=== PATIENT | male | born 1955 | race Hispanic/Latino ===

== ENCOUNTER 2021-11-16 18:03 | Emergency (ER) | payer MEDICARE ==
[2021-11-16 20:17] LABS: Basophils # (Auto) 0.1 K/mm3 (0.0-0.1); Basophils % (Auto) 0.5 % (0.0-1.8); Eosinophils # (Auto) 0.4 K/mm3 (0.0-0.4); Eosinophils % (Auto) 3.4 % (0.0-4.3); Hemoglobin 13.8 gm/dl (11.8-15.2); Lymphocytes # (Auto) 3.3 K/mm3 (1.2-5.4); Lymphocytes % (Auto) 30.8 % (13.4-35.0); Mean Corpuscular HGB Conc 34 % (32-34); Mean Corpuscular Volume 98 fl (84-94); Monocytes # (Auto) 0.9 K/mm3 (0.0-0.8); Monocytes % (Auto) 8.9 % (0.0-7.3); Platelet Count 212 K/mm3 (140-440); Red Cell Distribution Width 14.7 % (13.2-15.2)
[2021-11-16 20:28] LABS: BUN/Creatinine Ratio 18; Blood Urea Nitrogen 14 mg/dL (9-20); Calcium 9.1 mg/dL (8.4-10.2); Hemolysis Index 11
[2021-11-16] MEDS ORDERED: MIDAZOLAM 2 MG/2 ML INJ IM PRN (21:47)
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
[2021-11-17 10:21] LABS: Mucus,Urine FEW /HPF; WBC,Urine < 1.0 /HPF (0.0-6.0)
[2021-11-17 10:22] LABS: Color,Urine Straw (Yellow)
--- NOTE | 2021-11-17 10:50 | Consultation ---
History of Present Illness - Reason for Consult Consult date: 11/17/21 Reason for consult: agitation - History of Present Psychiatric Illness HPI: aggressive behavior reported at care facility. 12-17 signed on pt. given versed and haldol im by ems. 4 point restraints per ems. The patient was seen today. He is easily irritable. He smells of urine, and there is urine on the floor. The patient is a/o x 2. He has poor insight. The patient says he was brought here for a stroke. He then says "I don't know why I came here. But I'm ready to go." He says "I need a joint. Aint nothing wrong with me." He says "whatever they bought me for they need to take me back." The patient denies any psych history or being on any psych meds. He denies SI/HI or hallucinations of any kind. Will treat and recommend inpatient psych treatment based on documented behav iors. REVIEW OF SYSTEMS Constitutional: Negative for weight loss ENT: Negative for stridor Respiratory: Negative for cough or hemoptysis All other systems reviewed and are negative MENTAL STATUS EXAMINATION General Appearance and Behavior: Age appropriate, wearing appropriate clothes, cooperative, irritable Cooperation: cooperative Psychomotor Behavior: Psychomotor normal Mood: fine Affect and affective range: congruent with stated affect Thought Process: Impaired Thought Content: None Speech: Normal volume, Regular rate and rhythm Suicidal Ideation: Denies Homicidal Ideation: Denies Hallucination: Denies Delusions: Denies Impulse Control: Impaired Insight and Judgment: Limited Memory: Poor Attention: distracted Orientation: a/o x 2 Diagnoses: Mood Disorder, Unspecified Treatment Plan [address] 125mg po BID Trazodone 50mg po qhs Medical: per primary Sitter: defer to primary Disposition: Recommend acute psychiatric inpatient treatment Will follow. Thanks Case staffed with Dr. Duarte Medications and Allergies Allergies Allergy/AdvReac Type Severity Reaction Status Date / Time gadoteridol [From Prohance] Allergy Unknown Verified 11/16/21 18:43 Active Meds: Active Medications Haloperidol Lactate (Haloperidol Lactate 5 Mg/1 Ml Inj) 5 mg IM Q6HR PRN PRN Reason: Agitation Midazolam HCl (Midazolam 2 Mg/2 Ml Inj) 2 mg IM Q6HR PRN PRN Reason: Agitation Mental Status Exam - Vital signs Last Vital Signs Temp 97.4 F L 11/17/21 07:57 Pulse 69 11/17/21 07:57 Resp 16 11/17/21 07:57 BP 143/92 11/17/21 07:57 Pulse Ox 97 11/17/21 07:57 Results Result Diagrams: 11/16/21 19:41 11/16/21 19:41 Abnormal lab results 11/16/21 11/16/21 11/16/21 Range/Units 19:41 19:41 19:41 MCV 98 H (84-94) fl MCH 33 H (28-32) pg [place] % (Auto) 8.9 H (0.0-7.3) % [place] # (Auto) 0.9 H (0.0-0.8) K/mm3 Salicylates < 0.3 L (2.8-20.0) mg/dL Acetaminophen 5.0 L (10.0-30.0) ug/mL All other labs normal.
[2021-11-17 12:08] LABS: Amphetamine Screen,Urine PRESUMPTIVE NEGATIVE; Benzodiazepines Screen,Urine PRESUMPTIVE POSITIVE; Cannabinoid Screen,Urine PRESUMPTIVE NEGATIVE; Cocaine Screen,Urine PRESUMPTIVE NEGATIVE; Methadone Screen,Urine PRESUMPTIVE NEGATIVE; Opiate Screen,Urine PRESUMPTIVE NEGATIVE
[2021-11-17] MEDS: DIVALPROEX DR 125 MG TAB PO SCH ×2 (14:17→22:01)
[2021-11-17] MEDS: traZODone 50 MG TAB PO SCH (22:01)
[2021-11-18] MEDS: DIVALPROEX DR 125 MG TAB PO SCH (10:27)
--- NOTE | 2021-11-18 12:53 | Event Note ---
Date: 11/18/21 S: No events reported overnight O: Vital Signs - 8 hr 11/18/21 10:00 Temperature 98.0 F Pulse Rate 100 H Respiratory 14 Rate Blood Pressure 146/94 [Right] O2 Sat by Pulse 100 Oximetry A: Mood disorder P: 1013/awaiting inpatient psych
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
[2021-11-18] MEDS: HALOPERIDOL LACTATE 5 MG/1 ML INJ IM PRN ×2 (15:23→21:42)
[2021-11-18] MEDS: traZODone 50 MG TAB PO SCH (21:42)
[2021-11-18 21:46] VITALS: BP 126/77
[2021-11-18] MEDS ORDERED: DIVALPROEX DR 250 MG TAB PO SCH (22:00)
== END 2021-11-18 21:46 ==
LOC: ED 18:03
DX: Z04.6 Encounter for general psychiatric examination, requested by authority (principal); F03.90 Unspecified dementia, unspecified severity, without behavioral disturbance, psychotic disturbance, mood disturbance, and anxiety; Z20.822 Contact with and (suspected) exposure to COVID-19; Z88.8 Allergy status to other drugs, medicaments and biological substances; Z79.899 Other long term (current) drug therapy
CPT/HCPCS: 36415; 80048; 80307; 81001; 85025; 96372; 99285; J1630; U0003; 80320; G0480

== ENCOUNTER 2021-11-18 18:39 | Inpatient (IN) | payer MEDICARE ==
--- NOTE | 2021-11-19 09:49 | Consultation ---
Medications and Allergies Allergies Allergy/AdvReac Type Severity Reaction Status Date / Time gadoteridol [From Prohance] Allergy Unknown Verified 11/16/21 18:43 Home Medications Medication Instructions Recorded Confirmed Last Taken Type ALPRAZolam [Xanax TAB] 0.5 mg PO BID 11/19/21 11/19/21 Unknown History Atorvastatin [Lipitor Tab] 80 mg PO QDAY 11/19/21 11/19/21 Unknown History Sertraline [Zoloft] 25 mg PO QDAY 11/19/21 11/19/21 Unknown History Exam - Constitutional Vitals: Temp Pulse Resp BP Pulse Ox 97.5 F L 91 H 18 108/65 95 11/19/21 06:31 11/18/21 22:18 11/19/21 06:31 11/19/21 06:31 11/18/21 22:18
--- NOTE | 2021-11-19 11:32 | History and Physical Report ---
GP History & Physical - History of Present Illness Date of admission: 11/18/21 Date of Examination: 11/19/21 Reason for Admission: Danger to self, Failure of Outpatient Treatment, Severe anxiety/depression History of Present Illness: HPI: aggressive behavior reported at care facility. 12-17 signed on pt. given versed and haldol im by ems. 4 point restraints per ems. The patient was seen today. He was first seen in the ER where he presented for severe agitation. During my evaluation today, the patient is calm and cooperative, but easily irritable. I ask him if he felt calm, he said "yea for now, long as nobody messing with me." The patient denies hallucinations or SI/HI. PAST PSYCHIATRIC HISTORY: Diagnoses: Denies Suicide attempts or Self-harm behavior: Denies Prior psychiatric hospitalizations: Denies Substance Abuse history: Denies Previous psychiatric medications tried: Denies Outpatient treatment: Denies PAST MEDICAL HISTORY: None reported Family Psychiatric History: None reported or documented SOCIAL HISTORY Marital Status: Single Living Arrangements: lives with significant other Employment Status: Disabled Access to guns/weapons: Denies Education: History of Abuse:Denies Legal History: Denies REVIEW OF SYSTEMS Constitutional: Negative for weight loss ENT: Negative for stridor Respiratory: Negative for cough or hemoptysis All other systems reviewed and are negative MENTAL STATUS EXAMINATION General Appearance and Behavior: Age appropriate, wearing appropriate clothes, cooperative, irritable Cooperation: cooperative Psychomotor Behavior: Psychomotor normal Mood: fine Affect and affective range: congruent with stated affect Thought Process: Impaired Thought Content: None Speech: Normal volume, Regular rate and rhythm Suicidal Ideation: Denies Homicidal Ideation: Denies Hallucination: Denies Delusions: Denies Impulse Control: Impaired Insight and Judgment: Limited Memory: Poor Attention: distracted Orientation: a/o x 2 Diagnoses: Mood Disorder, Unspecified Treatment Plan Patient admitted for inpatient psychiatric evaluation, medication adjustment and close monitoring The patient's behavior, mood, sleep and appetite will be closely monitored. Patient enrolled in individual and group therapeutic sessions and encouraged to attend. Patient provided with a safe and structured environment. Patient's physical health needs will be addressed by the Hospitalist. Hospitalist Consulted Labs including CBC, CMP, Lipid profile and Hemoglobin A1C levels ordered for baseline reference Social Assessment will be completed and the Bead Forming Machine Set Up Operator will work with patient and family to ensure a suitable and safe disposition Medication adjustment will be made as clinically indicated Continue medications Usual Wellness Amish/Preservation: - Start Trazodone 50 mg po QHS & 50 mg po QHS PRN between 10 PM & 2 AM for insomnia - Start Melatonin 5 mg po QHS to promote circadian rhythm The patient agreed on the treatment plan, understood the risk, benefit, altern ative treatment, potential consequence of no treatment, and gave informed consent. Estimated days: 7 Post hospital care: primary care provider, psychiatric provider Case staffed with Dr. Duarte Legal Status: Voluntary Reaction to Hospitalization: Accepting Medications and Allergies Allergies Allergy/AdvReac Type Severity Reaction Status Date / Time gadoteridol [From Prohance] Allergy Unknown Verified 11/16/21 18:43 Home Medications Medication Instructions Recorded Confirmed Last Taken Type ALPRAZolam [Xanax TAB] 0.5 mg PO BID 11/19/21 11/19/21 Unknown History Atorvastatin [Lipitor Tab] 80 mg PO QDAY 11/19/21 11/19/21 Unknown History Sertraline [Zoloft] 25 mg PO QDAY 11/19/21 11/19/21 Unknown History Results - Results Labs/Vitals: Last Vital Signs Temp 97.5 F L 11/19/21 06:31 Pulse 91 H 11/18/21 22:18 Resp 18 11/19/21 06:31 BP 108/65 11/19/21 06:31 Pulse Ox 95 11/18/21 22:18 Physical Examination - Constitutional Vitals: Vital Signs Temp Pulse Resp BP Pulse Ox 97.5 F L 91 H 18 108/65 95 11/19/21 06:31 11/18/21 22:18 11/19/21 06:31 11/19/21 06:31 11/18/21 22:18 Temperature -Last 24 Hours Temperature 97.5 F Temperature 97.6 F Mental Status Exam - Vital signs Last Vital Signs Temp 97.5 F L 11/19/21 06:31 Pulse 91 H 11/18/21 22:18 Resp 18 11/19/21 06:31 BP 108/65 11/19/21 06:31 Pulse Ox 95 11/18/21 22:18 Physician Certification - Certification Statement Physician Certification Statement: This is an acknowledgement statement that PRAKASH SKY is a 66 year old M who requires inpatient psychiatric admission for treatment which could re asonably be expected to improve the patient's condition for Estimated period of time patient will need to remain in the hospital: [ ] Plan for post-hospital care: [ ]
[2021-11-19] MEDS ORDERED: NON-FORMULARY EACH (Atorvastatin [Lipitor] 80 MG Tablet) PO SCH (11:45)
[2021-11-19] MEDS: SERTRALINE 25 MG TAB PO SCH (11:59)
[2021-11-19] MEDS: ALPRAZolam 0.5 MG TAB PO SCH ×2 (11:59→21:09)
--- NOTE | 2021-11-19 20:57 | Consultation ---
History of Present Illness - Reason for Consult Consult date: 11/19/21 Medical management Requesting physician: TAYLOR DAILEY - History of Present Illness 66 YO Male with Vascular Dementia with Behavioral Disturbance, Cerebral Atherosclerosis, HTN, HLD, DESTIN, MDD admitted to [facility] for psychiatric stabilization. Consult placed by Dr. Dailey for medical management. Patient seen and evaluated in the recreation room. Patient denies fever, chills, chest pain, palpitation, productive cough, skin rash, recent contact, known exposure to COVID-19. No reported nursing events. Patient appears to be at baseline level of cognition and function. Past History Past Medical History: hypertension, hyperlipidemia, other (See HPI) Past Surgical History: No surgical history, Other (Reviewed) Social history: single. denies: smoking, alcohol abuse Family history: hypertension Medications and Allergies Allergies Allergy/AdvReac Type Severity Reaction Status Date / Time gadoteridol [From Prohance] Allergy Unknown Verified 11/16/21 18:43 Home Medications Medication Instructions Recorded Confirmed Last Taken Type ALPRAZolam [Xanax TAB] 0.5 mg PO BID 11/19/21 11/19/21 Unknown History Atorvastatin [Lipitor Tab] 80 mg PO QDAY 11/19/21 11/19/21 Unknown History Sertraline [Zoloft] 25 mg PO QDAY 11/19/21 11/19/21 Unknown History Active Meds: Active Medications Alprazolam (Alprazolam 0.5 Mg Tab) 0.5 mg PO BID [facility] Last Admin: 11/19/21 11:59 Dose: 0.5 mg Atorvastatin Calcium (Atorvastatin 40 Mg Tab) 80 mg PO QHS [facility] Sertraline HCl (Sertraline 25 Mg Tab) 25 mg PO QDAY [facility] Last Admin: 11/19/21 11:59 Dose: 25 mg Review of Systems Constitutional: no weight loss, no weight gain, no fever Ears, nose, mouth and throat: no ear pain, no tinnitis Cardiovascular: no chest pain, no orthopnea, no rapid/irregular heart beat Respiratory: no cough, no cough with sputum, no excessive sputum Gastrointestinal: no abdominal pain, no nausea, no vomiting, no diarrhea, no constipation Genitourinary Male: no hematuria, no flank pain, no discharge, no urinary fr equency Rectal: no pain, no incontinence, no bleeding Musculoskeletal: no neck stiffness, no neck pain, no shooting arm pain, no arm numbness/tingling, no low back pain, no leg numbness/tingling Integumentary: no rash, no redness, no sores, no wounds, no jaundice Neurological: no head injury, no weakness, no parathesias, no numbness, no seizures, no syncope, no tremors Psychiatric: anxiety, depression, mood swings Endocrine: no cold intolerance, no polyphagia, no excessive thirst, no polydipsia, no polyuria, no nocturia Hematologic/Lymphatic: no easy bruising, no easy bleeding Allergic/Immunologic: no urticaria Exam - Constitutional Vitals: Temp Pulse Resp BP Pulse Ox 97.8 F 75 18 126/78 98 11/19/21 18:36 11/19/21 18:36 11/19/21 18:36 11/19/21 18:36 11/19/21 18:36 General appearance: Present: no acute distress - EENT Eyes: Present: PERRL ENT: hearing intact, clear oral mucosa, hearing decreased - Neck Neck: Present: supple, normal ROM - Respiratory Respiratory effort: normal Respiratory: bilateral: CTA - Cardiovascular Heart Sounds: Present: S1 & S2. Absent: rub, click - Extremities Extremities: pulses symmetrical, No edema Peripheral Pulses: within normal limits - Abdominal General gastrointestinal: Present: soft, non-tender, non-distended, normal bowel sounds Male genitourinary: Present: normal - Integumentary Integumentary: Present: clear, warm, dry - Musculoskeletal Musculoskeletal: gait normal, strength equal bilaterally - Psychiatric Psychiatric: cooperative - Neurologic Neurologic: CNII-XII intact, moves all extremities Assessment and Plan - Patient Problems (1) Vascular dementia with behavioral disturbance Current Visit: Yes Status: Acute Plan to address problem: Verbal prompting, verbal redirection, benzodiazepine therapy as clinically indicated. (2) Cerebral atherosclerosis Current Visit: Yes Status: Acute Plan to address problem: Antiplatelet therapy as clinically indicated, risk factor reduction. (3) Hypertension Current Visit: Yes Status: Acute Qualifiers: Hypertension type: primary hypertension Qualified Code(s): I10 - Essential (primary) hypertension Plan to address problem: Monitor blood pressure every shift, continue medical management. (4) Hyperlipidemia Current Visit: Yes Status: Acute Plan to address problem: Statin therapy, low-cholesterol diet (5) Generalized anxiety disorder Current Visit: Yes Status: Acute Plan to address problem: Benzodiazepine therapy as clinically indicated. (6) Major depression Current Visit: Yes Status: Acute Plan to address problem: Continue medical management, cognitive behavioral therapy. (7) Advance care planning Current Visit: Yes Status: Acute Plan to address problem: Disease education done, care plan discussed, diagnoses discussed, prognosis discussed, patient is full code. Patient acknowledges understanding and agre ement with care plan, +30 minutes. (8) Preventative health care Current Visit: Yes Status: Acute Plan to address problem: Patient counseled regarding outpatient follow-up with primary care physician for all age and risk factor appropriate screening test. +30 minutes.
[2021-11-19 23:58] LABS: Hematocrit 35.9 % (35.5-45.6); Hemoglobin 12.4 gm/dl (11.8-15.2); Mean Corpuscular HGB Conc 35 % (32-34); Mean Corpuscular Volume 97 fl (84-94); Platelet Count 190 K/mm3 (140-440); Red Blood Count 3.69 M/mm3 (3.65-5.03); Red Cell Distribution Width 14.7 % (13.2-15.2)
[2021-11-20 01:47] LABS: Basophils % (Manual) 0 % (0.0-1.8); Total Cells Counted 100
[2021-11-20 01:48] LABS: Anisocytosis 1+; Ovalocytes Few; Platelet Estimate Consistent w Auto; Target Cells Few
[2021-11-20 02:28] LABS: Alanine Aminotransferase 46 units/L (7-56); Albumin 3.6 g/dL (3.9-5); BUN/Creatinine Ratio 21; Blood Urea Nitrogen 19 mg/dL (9-20); Calcium 9.2 mg/dL (8.4-10.2); Chol/HDL Ratio 1.91 %; HDL Cholesterol 48 mg/dL (40-59); Hemolysis Index 3; LDL Cholesterol,Direct 42 mg/dL (50-130)
[2021-11-20] MEDS: SERTRALINE 25 MG TAB PO SCH (12:14)
[2021-11-20] MEDS: ALPRAZolam 0.5 MG TAB PO SCH ×2 (16:14→21:18)
[2021-11-21] MEDS: ALPRAZolam 0.5 MG TAB PO SCH ×2 (09:07→21:06)
[2021-11-21] MEDS: SERTRALINE 25 MG TAB PO SCH (09:07)
--- NOTE | 2021-11-21 22:09 | Progress Note ---
Subjective Date of service: 11/20/21 Principal diagnosis: vascular dementia w/ behavioral disturbance, mood disorder unspecified Subjective Comment: 11/20: Patient was seen today. Patient was alert and oriented x3 and cooperative throughout the interview. Patient reports he feels "alright." Patient denies irritability or other depressive sx. Patient denies anxiety. Patient denies suicidal ideation, homicidal ideation, and hallucinations. Patient reports he slept okay and has good appetite. Patient denies any complaints. 11/19: The patient was seen today. He was first seen in the ER where he presented for severe agitation. During my evaluation today, the patient is calm and cooperative, but easily irritable. I ask him if he felt calm, he said "yea for now, long as nobody messing with me." The patient denies hallucinations or SI/HI. PAST PSYCHIATRIC HISTORY: Diagnoses: Denies Suicide attempts or Self-harm behavior: Denies Prior psychiatric hospitalizations: Denies Substance Abuse history: Denies Previous psychiatric medications tried: Denies Outpatient treatment: Denies PAST MEDICAL HISTORY: None reported Family Psychiatric History: None reported or documented SOCIAL HISTORY Marital Status: Single Living Arrangements: lives with significant other Employment Status: Disabled Access to guns/weapons: Denies Education: History of Abuse:Denies Legal History: Denies REVIEW OF SYSTEMS Constitutional: Negative for weight loss ENT: Negative for stridor Respiratory: Negative for cough or hemoptysis All other systems reviewed and are negative MENTAL STATUS EXAMINATION General Appearance and Behavior: Age appropriate, wearing appropriate clothes, cooperative, irritable Cooperation: cooperative Psychomotor Behavior: Psychomotor normal Mood: "alright" Affect and affective range: congruent with stated affect Thought Process: Goal oriented Thought Content: Reality based Speech: Normal volume, Regular rate and rhythm Suicidal Ideation: Denies Homicidal Ideation: Denies Hallucination: Denies Delusions: Denies Impulse Control: Normal Insight and Judgment: Limited Memory: Poor Attention: Distracted Orientation: a/o x 3 Diagnoses: Vascular dementia with behavioral disturbance Mood Disorder, Unspecified Treatment Plan Patient admitted for inpatient psychiatric evaluation, medication adjustment and close monitoring The patient's behavior, mood, sleep and appetite will be closely monitored. Patient enrolled in individual and group therapeutic sessions and encouraged to attend. Patient provided with a safe and structured environment. Patient's physical health needs will be addressed by the Hospitalist. Hospitalist Consulted Labs including CBC, CMP, Lipid profile and Hemoglobin A1C levels ordered for baseline reference Social Assessment will be completed and the Color Control Supervisor will work with patient and family to ensure a suitable and safe disposition Medication adjustment will be made as clinically indicated - Continue meds: - Zoloft 25 mg qd - Xanax .5 mg BID Usual Wellness [facility]/Preservation - Start Trazodone 50 mg po QHS & 50 mg po QHS PRN between 10 PM & 2 AM for insomnia - Start Melatonin 5 mg po QHS to promote circadian rhythm The patient agreed on the treatment plan, understood the risk, benefit, alternative treatment, potential consequence of no treatment, and gave informed consent. Estimated days: 7 Post hospital care: primary care provider, psychiatric provider Case staffed with Dr. Duarte Medications and Allergies Allergies Allergy/AdvReac Type Severity Reaction Status Date / Time gadoteridol [From Prohance] Allergy Unknown Verified 11/16/21 18:43 Home Medications Medication Instructions Recorded Confirmed Last Taken Type ALPRAZolam [Xanax TAB] 0.5 mg PO BID 11/19/21 11/19/21 Unknown History Atorvastatin [Lipitor Tab] 80 mg PO QDAY 11/19/21 11/19/21 Unknown History Sertraline [Zoloft] 25 mg PO QDAY 11/19/21 11/19/21 Unknown History Active Meds: Active Medications Alprazolam (Alprazolam 0.5 Mg Tab) 0.5 mg PO BID [facility] Last Admin: 11/21/21 21:06 Dose: 0.5 mg Atorvastatin Calcium (Atorvastatin 40 Mg Tab) 80 mg PO QHS [facility] Last Admin: 11/21/21 21:06 Dose: 80 mg Sertraline HCl (Sertraline 25 Mg Tab) 25 mg PO QDAY [facility] Last Admin: 11/21/21 09:07 Dose: 25 mg Results - Results Labs/Vitals: Laboratory Last Values WBC 9.8 K/mm3 (4.5-11.0) 11/19/21 23:14 RBC 3.69 M/mm3 (3.65-5.03) 11/19/21 23:14 Hgb 12.4 gm/dl (11.8-15.2) 11/19/21 23:14 Hct 35.9 % (35.5-45.6) 11/19/21 23:14 MCV 97 fl (84-94) H 11/19/21 23:14 MCH 34 pg (28-32) H 11/19/21 23:14 MCHC 35 % (32-34) H 11/19/21 23:14 RDW 14.7 % (13.2-15.2) 11/19/21 23:14 Plt Count 190 K/mm3 (140-440) 11/19/21 23:14 Baso % (Auto) Fancy Stitcher 11/19/21 23:14 Add Manual Diff Complete 11/19/21 23:14 Total Counted 100 11/19/21 23:14 Seg Neuts % (Manual) 50.0 % (40.0-70.0) 11/19/21 23:14 Band Neutrophils % 0 % 11/19/21 23:14 Lymphocytes % (Manual) 34.0 % (13.4-35.0) 11/19/21 23:14 Reactive Lymphs % (Man) 0 % 11/19/21 23:14 Monocytes % (Manual) 12.0 % (0.0-7.3) H 11/19/21 23:14 Eosinophils % (Manual) 4.0 % (0.0-4.3) 11/19/21 23:14 Basophils % (Manual) 0 % (0.0-1.8) 11/19/21 23:14 Metamyelocytes % 0 % 11/19/21 23:14 Myelocytes % 0 % 11/19/21 23:14 Promyelocytes % 0 % 11/19/21 23:14 Blast Cells % 0 % 11/19/21 23:14 Nucleated RBC % Not Reportable 11/19/21 23:14 Seg Neutrophils # Man 4.9 K/mm3 (1.8-7.7) 11/19/21 23:14 Band Neutrophils # 0.0 K/mm3 11/19/21 23:14 Lymphocytes # (Manual) 3.3 K/mm3 (1.2-5.4) 11/19/21 23:14 Abs React Lymphs (Man) 0.0 K/mm3 11/19/21 23:14 Monocytes # (Manual) 1.2 K/mm3 (0.0-0.8) H 11/19/21 23:14 Eosinophils # (Manual) 0.4 K/mm3 (0.0-0.4) 11/19/21 23:14 Basophils # (Manual) 0.0 K/mm3 (0.0-0.1) 11/19/21 23:14 Metamyelocytes # 0.0 K/mm3 11/19/21 23:14 Myelocytes # 0.0 K/mm3 11/19/21 23:14 Promyelocytes # 0.0 K/mm3 11/19/21 23:14 Blast Cells # 0.0 K/mm3 11/19/21 23:14 WBC Morphology Not Reportable 11/19/21 23:14 Hypersegmented Neuts Not Reportable 11/19/21 23:14 Hyposegmented Neuts Not Reportable 11/19/21 23:14 Hypogranular Neuts Not Reportable 11/19/21 23:14 Smudge Cells Not Reportable 11/19/21 23:14 Toxic Granulation Not Reportable 11/19/21 23:14 Toxic Vacuolation Not Reportable 11/19/21 23:14 Dohle Bodies Not Reportable 11/19/21 23:14 Pelger-Huet Anomaly Not Reportable 11/19/21 23:14 Nemesio Rods Not Reportable 11/19/21 23:14 Platelet Estimate Consistent w auto 11/19/21 23:14 Clumped Platelets Not Reportable 11/19/21 23:14 Plt Clumps, EDTA Not Reportable 11/19/21 23:14 Large Platelets Not Reportable 11/19/21 23:14 Giant Platelets Not Reportable 11/19/21 23:14 Platelet Satelliting Not Reportable 11/19/21 23:14 Plt Morphology Comment Not Reportable 11/19/21 23:14 RBC Morphology Not Reportable 11/19/21 23:14 Dimorphic RBCs Not Reportable 11/19/21 23:14 Polychromasia Not Reportable 11/19/21 23:14 Hypochromasia Not Reportable 11/19/21 23:14 Poikilocytosis Not Reportable 11/19/21 23:14 Anisocytosis 1+ 11/19/21 23:14 Microcytosis Not Reportable 11/19/21 23:14 Macrocytosis Not Reportable 11/19/21 23:14 Spherocytes Not Reportable 11/19/21 23:14 Pappenheimer Bodies Not Reportable 11/19/21 23:14 Sickle Cells Not Reportable 11/19/21 23:14 Target Cells Few 11/19/21 23:14 Tear Drop Cells Not Reportable 11/19/21 23:14 Ovalocytes Few 11/19/21 23:14 Helmet Cells Not Reportable 11/19/21 23:14 [place] Bodies Not Reportable 11/19/21 23:14 [place] Rings Not Reportable 11/19/21 23:14 [place] Cells Not Reportable 11/19/21 23:14 Bite Cells Not Reportable 11/19/21 23:14 Crenated Cell Not Reportable 11/19/21 23:14 Elliptocytes Not Reportable 11/19/21 23:14 Acanthocytes (Spur) Rare 11/19/21 23:14 Rouleaux Not Reportable 11/19/21 23:14 Hemoglobin C Crystals Not Reportable 11/19/21 23:14 Schistocytes Not Reportable 11/19/21 23:14 Malaria parasites Not Reportable 11/19/21 23:14 Haim Bodies Not Reportable 11/19/21 23:14 Hem Pathologist Commnt No 11/19/21 23:14 Sodium 137 mmol/L (137-145) 11/19/21 23:14 Potassium 4.2 mmol/L (3.6-5.0) 11/19/21 23:14 Chloride 102.3 mmol/L (98-107) 11/19/21 23:14 Carbon Dioxide 24 mmol/L (22-30) 11/19/21 23:14 Anion Gap 15 mmol/L 11/19/21 23:14 BUN 19 mg/dL (9-20) 11/19/21 23:14 Creatinine 0.9 mg/dL (0.8-1.3) 11/19/21 23:14 Estimated GFR > 60 ml/min 11/19/21 23:14 BUN/Creatinine Ratio 21 % 11/19/21 23:14 Glucose 103 mg/dL (75-100) H 11/19/21 23:14 Hemoglobin A1c 5.8 % (4-6) 11/19/21 23:14 Calcium 9.2 mg/dL (8.4-10.2) 11/19/21 23:14 Total Bilirubin 0.30 mg/dL (0.1-1.2) 11/19/21 23:14 AST 54 units/L (5-40) H 11/19/21 23:14 ALT 46 units/L (7-56) 11/19/21 23:14 Alkaline Phosphatase 70 units/L (35-129) 11/19/21 23:14 Total Protein 7.0 g/dL (6.3-8.2) 11/19/21 23:14 Albumin 3.6 g/dL (3.9-5) L 11/19/21 23:14 Albumin/Globulin Ratio 1.1 % 11/19/21 23:14 Triglycerides 42 mg/dL (2-149) 11/19/21 23:14 Cholesterol 92 mg/dL (50-199) 11/19/21 23:14 LDL Cholesterol Direct 42 mg/dL (50-130) L 11/19/21 23:14 HDL Cholesterol 48 mg/dL (40-59) 11/19/21 23:14 Cholesterol/HDL Ratio 1.91 % 11/19/21 23:14 TSH 3.150 mlU/mL (0.270-4.200) 11/19/21 23:14 Last Vital Signs Temp 97.9 F 11/21/21 18:25 Pulse 75 11/21/21 18:25 Resp 16 11/21/21 18:25 BP 143/87 11/21/21 18:25 Pulse Ox 95 11/21/21 18:25
[2021-11-21] MEDS ORDERED: MELATONIN 5 MG TAB PO PRN (22:35)
--- NOTE | 2021-11-21 22:44 | Progress Note ---
Subjective Date of service: 11/21/21 Principal diagnosis: vascular dementia w/ behavioral disturbance, mood disorder unspecified Subjective Comment: 11/21: Patient was seen today. Patient was alert and oriented x3 and cooperative throughout the interview. When asked how he feels, patient responds "I'm here." Patient denies depressive sx. Patient reports "I need to get out of here." When asked where he wants to go, patient reports "anywhere, I'm ready to go." Patient denies irritability or other depressive sx. Patient denies anxiety. Patient denies suicidal ideation, homicidal ideation, and hallucinations. Patient reports good sleep and good appetite. 11/20: Patient was seen today. Patient was alert and oriented x3 and cooperative throughout the interview. Patient reports he feels "alright." Patient denies irritability or other depressive sx. Patient denies anxiety. Patient denies suicidal ideation, homicidal ideation, and hallucinations. Patient reports he slept okay and has good appetite. Patient denies any complaints. 11/19: The patient was seen today. He was first seen in the ER where he presented for severe agitation. During my evaluation today, the patient is calm and cooperative, but easily irritable. I ask him if he felt calm, he said "yea for now, long as nobody messing with me." The patient denies hallucinations or SI/HI. PAST PSYCHIATRIC HISTORY: Diagnoses: Denies Suicide attempts or Self-harm behavior: Denies Prior psychiatric hospitalizations: Denies Substance Abuse history: Denies Previous psychiatric medications tried: Denies Outpatient treatment: Denies PAST MEDICAL HISTORY: None reported Family Psychiatric History: None reported or documented SOCIAL HISTORY Marital Status: Single Living Arrangements: lives with significant other Employment Status: Disabled Access to guns/weapons: Denies Education: History of Abuse:Denies Legal History: Denies REVIEW OF SYSTEMS Constitutional: Negative for weight loss ENT: Negative for stridor Respiratory: Negative for cough or hemoptysis All other systems reviewed and are negative MENTAL STATUS EXAMINATION General Appearance and Behavior: Age appropriate, wearing appropriate clothes, cooperative Cooperation: cooperative Psychomotor Behavior: Psychomotor normal Mood: "I'm here," neutral Affect and affective range: congruent with stated affect Thought Process: Goal oriented Thought Content: Reality based Speech: Normal volume, Regular rate and rhythm Suicidal Ideation: Denies Homicidal Ideation: Denies Hallucination: Denies Delusions: Denies Impulse Control: Normal Insight and Judgment: Limited Memory: Poor Attention: Distracted Orientation: a/o x 3 Diagnoses: Vascular dementia with behavioral disturbance Mood Disorder, Unspecified Treatment Plan Patient admitted for inpatient psychiatric evaluation, medication adjustment and close monitoring The patient's behavior, mood, sleep and appetite will be closely monitored. Patient enrolled in individual and group therapeutic sessions and encouraged to attend. Patient provided with a safe and structured environment. Patient's physical health needs will be addressed by the Hospitalist. Hospitalist Consulted Labs including CBC, CMP, Lipid profile and Hemoglobin A1C levels ordered for baseline reference Social Assessment will be completed and the Legal Writing Professor will work with patient and family to ensure a suitable and safe disposition Medication adjustment will be made as clinically indicated - Increase to Zoloft 50 mg qd - Decrease Xanax .25 mg BID Usual Wellness [facility]/Preservation - Trazodone 50 mg po QHS PRN for insomnia - Melatonin 5 mg po QHS to promote circadian rhythm The patient agreed on the treatment plan, understood the risk, benefit, alternative treatment, potential consequence of no treatment, and gave informed consent. Estimated days: 7 Post hospital care: primary care provider, psychiatric provider Case staffed with Dr. Duarte Medications and Allergies Allergies Allergy/AdvReac Type Severity Reaction Status Date / Time gadoteridol [From Prohance] Allergy Unknown Verified 11/16/21 18:43 Home Medications Medication Instructions Recorded Confirmed Last Taken Type ALPRAZolam [Xanax TAB] 0.5 mg PO BID 11/19/21 11/19/21 Unknown History Atorvastatin [Lipitor Tab] 80 mg PO QDAY 11/19/21 11/19/21 Unknown History Sertraline [Zoloft] 25 mg PO QDAY 11/19/21 11/19/21 Unknown History Active Meds: Active Medications Alprazolam (Alprazolam 0.25 Mg Tab) 0.25 mg PO Q12HR [facility] Atorvastatin Calcium (Atorvastatin 40 Mg Tab) 80 mg PO QHS [facility] Last Admin: 11/21/21 21:06 Dose: 80 mg Melatonin (Melatonin 5 Mg Tab) 5 mg PO QHS PRN PRN Reason: Sleep Sertraline HCl (Sertraline 50 Mg Tab) 50 mg PO QDAY [facility] Trazodone HCl (Trazodone 50 Mg Tab) 50 mg PO QHS PRN PRN Reason: Sleep Results - Results Labs/Vitals: Laboratory Last Values WBC 9.8 K/mm3 (4.5-11.0) 11/19/21 23:14 RBC 3.69 M/mm3 (3.65-5.03) 11/19/21 23:14 Hgb 12.4 gm/dl (11.8-15.2) 11/19/21 23:14 Hct 35.9 % (35.5-45.6) 11/19/21 23:14 MCV 97 fl (84-94) H 11/19/21 23:14 MCH 34 pg (28-32) H 11/19/21 23:14 MCHC 35 % (32-34) H 11/19/21 23:14 RDW 14.7 % (13.2-15.2) 11/19/21 23:14 Plt Count 190 K/mm3 (140-440) 11/19/21 23:14 Baso % (Auto) Hairspring Truing Inspector 11/19/21 23:14 Add Manual Diff Complete 11/19/21 23:14 Total Counted 100 11/19/21 23:14 Seg Neuts % (Manual) 50.0 % (40.0-70.0) 11/19/21 23:14 Band Neutrophils % 0 % 11/19/21 23:14 Lymphocytes % (Manual) 34.0 % (13.4-35.0) 11/19/21 23:14 Reactive Lymphs % (Man) 0 % 11/19/21 23:14 Monocytes % (Manual) 12.0 % (0.0-7.3) H 11/19/21 23:14 Eosinophils % (Manual) 4.0 % (0.0-4.3) 11/19/21 23:14 Basophils % (Manual) 0 % (0.0-1.8) 11/19/21 23:14 Metamyelocytes % 0 % 11/19/21 23:14 Myelocytes % 0 % 11/19/21 23:14 Promyelocytes % 0 % 11/19/21 23:14 Blast Cells % 0 % 11/19/21 23:14 Nucleated RBC % Not Reportable 11/19/21 23:14 Seg Neutrophils # Man 4.9 K/mm3 (1.8-7.7) 11/19/21 23:14 Band Neutrophils # 0.0 K/mm3 11/19/21 23:14 Lymphocytes # (Manual) 3.3 K/mm3 (1.2-5.4) 11/19/21 23:14 Abs React Lymphs (Man) 0.0 K/mm3 11/19/21 23:14 Monocytes # (Manual) 1.2 K/mm3 (0.0-0.8) H 11/19/21 23:14 Eosinophils # (Manual) 0.4 K/mm3 (0.0-0.4) 11/19/21 23:14 Basophils # (Manual) 0.0 K/mm3 (0.0-0.1) 11/19/21 23:14 Metamyelocytes # 0.0 K/mm3 11/19/21 23:14 Myelocytes # 0.0 K/mm3 11/19/21 23:14 Promyelocytes # 0.0 K/mm3 11/19/21 23:14 Blast Cells # 0.0 K/mm3 11/19/21 23:14 WBC Morphology Not Reportable 11/19/21 23:14 Hypersegmented Neuts Not Reportable 11/19/21 23:14 Hyposegmented Neuts Not Reportable 11/19/21 23:14 Hypogranular Neuts Not Reportable 11/19/21 23:14 Smudge Cells Not Reportable 11/19/21 23:14 Toxic Granulation Not Reportable 11/19/21 23:14 Toxic Vacuolation Not Reportable 11/19/21 23:14 Dohle Bodies Not Reportable 11/19/21 23:14 Pelger-Huet Anomaly Not Reportable 11/19/21 23:14 Nemesio Rods Not Reportable 11/19/21 23:14 Platelet Estimate Consistent w auto 11/19/21 23:14 Clumped Platelets Not Reportable 11/19/21 23:14 Plt Clumps, EDTA Not Reportable 11/19/21 23:14 Large Platelets Not Reportable 11/19/21 23:14 Giant Platelets Not Reportable 11/19/21 23:14 Platelet Satelliting Not Reportable 11/19/21 23:14 Plt Morphology Comment Not Reportable 11/19/21 23:14 RBC Morphology Not Reportable 11/19/21 23:14 Dimorphic RBCs Not Reportable 11/19/21 23:14 Polychromasia Not Reportable 11/19/21 23:14 Hypochromasia Not Reportable 11/19/21 23:14 Poikilocytosis Not Reportable 11/19/21 23:14 Anisocytosis 1+ 11/19/21 23:14 Microcytosis Not Reportable 11/19/21 23:14 Macrocytosis Not Reportable 11/19/21 23:14 Spherocytes Not Reportable 11/19/21 23:14 Pappenheimer Bodies Not Reportable 11/19/21 23:14 Sickle Cells Not Reportable 11/19/21 23:14 Target Cells Few 11/19/21 23:14 Tear Drop Cells Not Reportable 11/19/21 23:14 Ovalocytes Few 11/19/21 23:14 Helmet Cells Not Reportable 11/19/21 23:14 [place] Bodies Not Reportable 11/19/21 23:14 [place] Rings Not Reportable 11/19/21 23:14 [place] Cells Not Reportable 11/19/21 23:14 Bite Cells Not Reportable 11/19/21 23:14 Crenated Cell Not Reportable 11/19/21 23:14 Elliptocytes Not Reportable 11/19/21 23:14 Acanthocytes (Spur) Rare 11/19/21 23:14 Rouleaux Not Reportable 11/19/21 23:14 Hemoglobin C Crystals Not Reportable 11/19/21 23:14 Schistocytes Not Reportable 11/19/21 23:14 Malaria parasites Not Reportable 11/19/21 23:14 Haim Bodies Not Reportable 11/19/21 23:14 Hem Pathologist Commnt No 11/19/21 23:14 Sodium 137 mmol/L (137-145) 11/19/21 23:14 Potassium 4.2 mmol/L (3.6-5.0) 11/19/21 23:14 Chloride 102.3 mmol/L (98-107) 11/19/21 23:14 Carbon Dioxide 24 mmol/L (22-30) 11/19/21 23:14 Anion Gap 15 mmol/L 11/19/21 23:14 BUN 19 mg/dL (9-20) 11/19/21 23:14 Creatinine 0.9 mg/dL (0.8-1.3) 11/19/21 23:14 Estimated GFR > 60 ml/min 11/19/21 23:14 BUN/Creatinine Ratio 21 % 11/19/21 23:14 Glucose 103 mg/dL (75-100) H 11/19/21 23:14 Hemoglobin A1c 5.8 % (4-6) 11/19/21 23:14 Calcium 9.2 mg/dL (8.4-10.2) 11/19/21 23:14 Total Bilirubin 0.30 mg/dL (0.1-1.2) 11/19/21 23:14 AST 54 units/L (5-40) H 11/19/21 23:14 ALT 46 units/L (7-56) 11/19/21 23:14 Alkaline Phosphatase 70 units/L (35-129) 11/19/21 23:14 Total Protein 7.0 g/dL (6.3-8.2) 11/19/21 23:14 Albumin 3.6 g/dL (3.9-5) L 11/19/21 23:14 Albumin/Globulin Ratio 1.1 % 11/19/21 23:14 Triglycerides 42 mg/dL (2-149) 11/19/21 23:14 Cholesterol 92 mg/dL (50-199) 11/19/21 23:14 LDL Cholesterol Direct 42 mg/dL (50-130) L 11/19/21 23:14 HDL Cholesterol 48 mg/dL (40-59) 11/19/21 23:14 Cholesterol/HDL Ratio 1.91 % 11/19/21 23:14 TSH 3.150 mlU/mL (0.270-4.200) 11/19/21 23:14 Last Vital Signs Temp 97.9 F 11/21/21 18:25 Pulse 75 11/21/21 18:25 Resp 16 11/21/21 18:25 BP 143/87 11/21/21 18:25 Pulse Ox 95 11/21/21 18:25
[2021-11-22] MEDS: ALPRAZolam 0.25 MG TAB PO SCH ×2 (09:15→21:14)
[2021-11-22] MEDS: SERTRALINE 50 MG TAB PO SCH (09:16)
--- NOTE | 2021-11-22 10:03 | Progress Note ---
Subjective Date of service: 11/22/21 Principal diagnosis: vascular dementia w/ behavioral disturbance, mood disorder unspecified Subjective Comment: 11/22: Patient was seen today. Patient was alert and oriented x3 and cooperative throughout the interview. Patient reports feeling "same as usual." Patient denies depressed mood and suicidal ideation "that's the last thing I want to do." Patient denies irritability and anxiety. Patient reports he needs a beer. Patient reports okay sleep and good appetite. Patient denies HI and hallucinations. 11/21: Patient was seen today. Patient was alert and oriented x3 and cooperative throughout the interview. When asked how he feels, patient responds "I'm here." Patient denies depressive sx. Patient reports "I need to get out of here." When asked where he wants to go, patient reports "anywhere, I'm ready to go." Patient denies irritability or other depressive sx. Patient denies anxiety. Patient denies suicidal ideation, homicidal ideation, and hallucinations. Patient reports good sleep and good appetite. 11/20: Patient was seen today. Patient was alert and oriented x3 and cooperative throughout the interview. Patient reports he feels "alright." Patient denies irritability or other depressive sx. Patient denies anxiety. Patient denies suicidal ideation, homicidal ideation, and hallucinations. Patient reports he slept okay and has good appetite. Patient denies any complaints. 11/19: The patient was seen today. He was first seen in the ER where he presented for severe agitation. During my evaluation today, the patient is calm and cooperative, but easily irritable. I ask him if he felt calm, he said "yea for now, long as nobody messing with me." The patient denies hallucinations or SI/HI. PAST PSYCHIATRIC HISTORY: Diagnoses: Denies Suicide attempts or Self-harm behavior: Denies Prior psychiatric hospitalizations: Denies Substance Abuse history: Denies Previous psychiatric medications tried: Denies Outpatient treatment: Denies PAST MEDICAL HISTORY: None reported Family Psychiatric History: None reported or documented SOCIAL HISTORY Marital Status: Single Living Arrangements: lives with significant other Employment Status: Disabled Access to guns/weapons: Denies Education: History of Abuse:Denies Legal History: Denies REVIEW OF SYSTEMS Constitutional: Negative for weight loss ENT: Negative for stridor Respiratory: Negative for cough or hemoptysis All other systems reviewed and are negative MENTAL STATUS EXAMINATION General Appearance and Behavior: Age appropriate, wearing appropriate clothes, cooperative Cooperation: cooperative Psychomotor Behavior: Psychomotor normal Mood: "I'm here," neutral Affect and affective range: congruent with stated affect Thought Process: Goal oriented Thought Content: Reality based Speech: Normal volume, Regular rate and rhythm Suicidal Ideation: Denies Homicidal Ideation: Denies Hallucination: Denies Delusions: Denies Impulse Control: Normal Insight and Judgment: Limited Memory: Poor Attention: Distracted Orientation: a/o x 3 Diagnoses: Vascular dementia with behavioral disturbance Mood Disorder, Unspecified Treatment Plan Patient admitted for inpatient psychiatric evaluation, medication adjustment and close monitoring The patient's behavior, mood, sleep and appetite will be closely monitored. Patient enrolled in individual and group therapeutic sessions and encouraged to attend. Patient provided with a safe and structured environment. Patient's physical health needs will be addressed by the Hospitalist. Hospitalist Consulted Labs including CBC, CMP, Lipid profile and Hemoglobin A1C levels ordered for baseline reference Social Assessment will be completed and the Elevator Constructor Hydraulic will work with patient and family to ensure a suitable and safe disposition Medication adjustment will be made as clinically indicated - Maintain to Zoloft 50 mg qd - Maintain Xanax .25 mg BID Usual Wellness Episcopal/Preservation - Trazodone 50 mg po QHS PRN for insomnia - Melatonin 5 mg po QHS to promote circadian rhythm The patient agreed on the treatment plan, understood the risk, benefit, alternative treatment, potential consequence of no treatment, and gave informed consent. Estimated days: 7 Post hospital care: primary care provider, psychiatric provider Case staffed with Dr. Duarte Medications and Allergies Allergies Allergy/AdvReac Type Severity Reaction Status Date / Time gadoteridol [From Prohance] Allergy Unknown Verified 11/16/21 18:43 Home Medications Medication Instructions Recorded Confirmed Last Taken Type ALPRAZolam [Xanax TAB] 0.5 mg PO BID 11/19/21 11/19/21 Unknown History Atorvastatin [Lipitor Tab] 80 mg PO QDAY 11/19/21 11/19/21 Unknown History Sertraline [Zoloft] 25 mg PO QDAY 11/19/21 11/19/21 Unknown History Active Meds: Active Medications Alprazolam (Alprazolam 0.25 Mg Tab) 0.25 mg PO Q12HR [facility] Last Admin: 11/22/21 09:15 Dose: 0.25 mg Atorvastatin Calcium (Atorvastatin 40 Mg Tab) 80 mg PO QHS [facility] Last Admin: 11/21/21 21:06 Dose: 80 mg Melatonin (Melatonin 5 Mg Tab) 5 mg PO QHS PRN PRN Reason: Sleep Sertraline HCl (Sertraline 50 Mg Tab) 50 mg PO QDAY [facility] Last Admin: 11/22/21 09:16 Dose: 50 mg Trazodone HCl (Trazodone 50 Mg Tab) 50 mg PO QHS PRN PRN Reason: Sleep Results - Results Labs/Vitals: Laboratory Last Values WBC 9.8 K/mm3 (4.5-11.0) 11/19/21 23:14 RBC 3.69 M/mm3 (3.65-5.03) 11/19/21 23:14 Hgb 12.4 gm/dl (11.8-15.2) 11/19/21 23:14 Hct 35.9 % (35.5-45.6) 11/19/21 23:14 MCV 97 fl (84-94) H 11/19/21 23:14 MCH 34 pg (28-32) H 11/19/21 23:14 MCHC 35 % (32-34) H 11/19/21 23:14 RDW 14.7 % (13.2-15.2) 11/19/21 23:14 Plt Count 190 K/mm3 (140-440) 11/19/21 23:14 Baso % (Auto) Consulting Services Manager 11/19/21 23:14 Add Manual Diff Complete 11/19/21 23:14 Total Counted 100 11/19/21 23:14 Seg Neuts % (Manual) 50.0 % (40.0-70.0) 11/19/21 23:14 Band Neutrophils % 0 % 11/19/21 23:14 Lymphocytes % (Manual) 34.0 % (13.4-35.0) 11/19/21 23:14 Reactive Lymphs % (Man) 0 % 11/19/21 23:14 Monocytes % (Manual) 12.0 % (0.0-7.3) H 11/19/21 23:14 Eosinophils % (Manual) 4.0 % (0.0-4.3) 11/19/21 23:14 Basophils % (Manual) 0 % (0.0-1.8) 11/19/21 23:14 Metamyelocytes % 0 % 11/19/21 23:14 Myelocytes % 0 % 11/19/21 23:14 Promyelocytes % 0 % 11/19/21 23:14 Blast Cells % 0 % 11/19/21 23:14 Nucleated RBC % Not Reportable 11/19/21 23:14 Seg Neutrophils # Man 4.9 K/mm3 (1.8-7.7) 11/19/21 23:14 Band Neutrophils # 0.0 K/mm3 11/19/21 23:14 Lymphocytes # (Manual) 3.3 K/mm3 (1.2-5.4) 11/19/21 23:14 Abs React Lymphs (Man) 0.0 K/mm3 11/19/21 23:14 Monocytes # (Manual) 1.2 K/mm3 (0.0-0.8) H 11/19/21 23:14 Eosinophils # (Manual) 0.4 K/mm3 (0.0-0.4) 11/19/21 23:14 Basophils # (Manual) 0.0 K/mm3 (0.0-0.1) 11/19/21 23:14 Metamyelocytes # 0.0 K/mm3 11/19/21 23:14 Myelocytes # 0.0 K/mm3 11/19/21 23:14 Promyelocytes # 0.0 K/mm3 11/19/21 23:14 Blast Cells # 0.0 K/mm3 11/19/21 23:14 WBC Morphology Not Reportable 11/19/21 23:14 Hypersegmented Neuts Not Reportable 11/19/21 23:14 Hyposegmented Neuts Not Reportable 11/19/21 23:14 Hypogranular Neuts Not Reportable 11/19/21 23:14 Smudge Cells Not Reportable 11/19/21 23:14 Toxic Granulation Not Reportable 11/19/21 23:14 Toxic Vacuolation Not Reportable 11/19/21 23:14 Dohle Bodies Not Reportable 11/19/21 23:14 Pelger-Huet Anomaly Not Reportable 11/19/21 23:14 Nemesio Rods Not Reportable 11/19/21 23:14 Platelet Estimate Consistent w auto 11/19/21 23:14 Clumped Platelets Not Reportable 11/19/21 23:14 Plt Clumps, EDTA Not Reportable 11/19/21 23:14 Large Platelets Not Reportable 11/19/21 23:14 Giant Platelets Not Reportable 11/19/21 23:14 Platelet Satelliting Not Reportable 11/19/21 23:14 Plt Morphology Comment Not Reportable 11/19/21 23:14 RBC Morphology Not Reportable 11/19/21 23:14 Dimorphic RBCs Not Reportable 11/19/21 23:14 Polychromasia Not Reportable 11/19/21 23:14 Hypochromasia Not Reportable 11/19/21 23:14 Poikilocytosis Not Reportable 11/19/21 23:14 Anisocytosis 1+ 11/19/21 23:14 Microcytosis Not Reportable 11/19/21 23:14 Macrocytosis Not Reportable 11/19/21 23:14 Spherocytes Not Reportable 11/19/21 23:14 Pappenheimer Bodies Not Reportable 11/19/21 23:14 Sickle Cells Not Reportable 11/19/21 23:14 Target Cells Few 11/19/21 23:14 Tear Drop Cells Not Reportable 11/19/21 23:14 Ovalocytes Few 11/19/21 23:14 Helmet Cells Not Reportable 11/19/21 23:14 Burg[place] Bodies Not Reportable 11/19/21 23:14 [place] Rings Not Reportable 11/19/21 23:14 [place] Cells Not Reportable 11/19/21 23:14 Bite Cells Not Reportable 11/19/21 23:14 Crenated Cell Not Reportable 11/19/21 23:14 Elliptocytes Not Reportable 11/19/21 23:14 Acanthocytes (Spur) Rare 11/19/21 23:14 Rouleaux Not Reportable 11/19/21 23:14 Hemoglobin C Crystals Not Reportable 11/19/21 23:14 Schistocytes Not Reportable 11/19/21 23:14 Malaria parasites Not Reportable 11/19/21 23:14 Haim Bodies Not Reportable 11/19/21 23:14 Hem Pathologist Commnt No 11/19/21 23:14 Sodium 137 mmol/L (137-145) 11/19/21 23:14 Potassium 4.2 mmol/L (3.6-5.0) 11/19/21 23:14 Chloride 102.3 mmol/L (98-107) 11/19/21 23:14 Carbon Dioxide 24 mmol/L (22-30) 11/19/21 23:14 Anion Gap 15 mmol/L 11/19/21 23:14 BUN 19 mg/dL (9-20) 11/19/21 23:14 Creatinine 0.9 mg/dL (0.8-1.3) 11/19/21 23:14 Estimated GFR > 60 ml/min 11/19/21 23:14 BUN/Creatinine Ratio 21 % 11/19/21 23:14 Glucose 103 mg/dL (75-100) H 11/19/21 23:14 Hemoglobin A1c 5.8 % (4-6) 11/19/21 23:14 Calcium 9.2 mg/dL (8.4-10.2) 11/19/21 23:14 Total Bilirubin 0.30 mg/dL (0.1-1.2) 11/19/21 23:14 AST 54 units/L (5-40) H 11/19/21 23:14 ALT 46 units/L (7-56) 11/19/21 23:14 Alkaline Phosphatase 70 units/L (35-129) 11/19/21 23:14 Total Protein 7.0 g/dL (6.3-8.2) 11/19/21 23:14 Albumin 3.6 g/dL (3.9-5) L 11/19/21 23:14 Albumin/Globulin Ratio 1.1 % 11/19/21 23:14 Triglycerides 42 mg/dL (2-149) 11/19/21 23:14 Cholesterol 92 mg/dL (50-199) 11/19/21 23:14 LDL Cholesterol Direct 42 mg/dL (50-130) L 11/19/21 23:14 HDL Cholesterol 48 mg/dL (40-59) 11/19/21 23:14 Cholesterol/HDL Ratio 1.91 % 11/19/21 23:14 TSH 3.150 mlU/mL (0.270-4.200) 11/19/21 23:14 Last Vital Signs Temp 97.2 F L 11/22/21 08:22 Pulse 74 11/22/21 08:22 Resp 18 11/22/21 08:22 BP 146/94 11/22/21 08:22 Pulse Ox 95 11/22/21 08:22
[2021-11-22] MEDS: ALUM-MAG HYDROXIDE-SIMETHICONE 200-200-20MG/5ML ORAL LIQD 30 ML PO PRN (16:54)
--- NOTE | 2021-11-23 08:31 | Progress Note ---
Subjective Date of service: 11/23/21 Principal diagnosis: vascular dementia w/ behavioral disturbance, mood disorder unspecified Subjective Comment: 11/23: Patient was seen today. Patient was alert and oriented x3 and cooperative throughout the interview. Patient reports feeling "same as usual." Patient continues to deny depressed mood and suicidal ideation. When asked if patient endorses HI patient reports "not yet," and laughs. Patient reports "I need a joint and a shot of liquor." Patient reports okay sleep and good appetite. Patient denies hallucinations. Patient reports interest in checking on how his sister is doing. 11/22: Patient was seen today. Patient was alert and oriented x3 and cooperative throughout the interview. Patient reports feeling "same as usual." Patient denies depressed mood and suicidal ideation "that's the last thing I want to do." Patient denies irritability and anxiety. Patient reports he needs a beer. Patient reports okay sleep and good appetite. Patient denies HI and hallucinations. 11/21: Patient was seen today. Patient was alert and oriented x3 and cooperative throughout the interview. When asked how he feels, patient responds "I'm here." Patient denies depressive sx. Patient reports "I need to get out of here." When asked where he wants to go, patient reports "anywhere, I'm ready to go." Patient denies irritability or other depressive sx. Patient denies anxiety. Patient denies suicidal ideation, homicidal ideation, and hallucinations. Patient reports good sleep and good appetite. 11/20: Patient was seen today. Patient was alert and oriented x3 and cooperative throughout the interview. Patient reports he feels "alright." Patient denies irritability or other depressive sx. Patient denies anxiety. Patient denies suicidal ideation, homicidal ideation, and hallucinations. Patient reports he slept okay and has good appetite. Patient denies any complaints. 11/19: The patient was seen today. He was first seen in the ER where he presented for severe agitation. During my evaluation today, the patient is calm and cooperative, but easily irritable. I ask him if he felt calm, he said "yea for now, long as nobody messing with me." The patient denies hallucinations or SI/HI. MENTAL STATUS EXAMINATION General Appearance and Behavior: Age appropriate, wearing appropriate clothes, cooperative Cooperation: cooperative Psychomotor Behavior: Psychomotor normal Mood: "same as usual," Affect and affective range: calm Thought Process: Goal oriented Thought Content: Reality based Speech: Normal volume, Regular rate and rhythm Suicidal Ideation: Denies Homicidal Ideation: Denies Hallucination: Denies Delusions: Denies Impulse Control: Normal Insight and Judgment: Limited Memory: Fair Attention: Attentive Orientation: a/o x 3 Diagnoses: Vascular dementia with behavioral disturbance Mood Disorder, Unspecified Treatment Plan Patient admitted for inpatient psychiatric evaluation, medication adjustment and close monitoring The patient's behavior, mood, sleep and appetite will be closely monitored. Patient enrolled in individual and group therapeutic sessions and encouraged to attend. Patient provided with a safe and structured environment. Patient's physical health needs will be addressed by the Hospitalist. Hospitalist Consulted Labs including CBC, CMP, Lipid profile and Hemoglobin A1C levels ordered for baseline reference Social Assessment will be completed and the Fish Bait Picker will work with patient and family to ensure a suitable and safe disposition Medication adjustment will be made as clinically indicated - Maintain to Zoloft 50 mg qd - Maintain Xanax .25 mg BID Usual Wellness Rastafarian/Preservation - Trazodone 50 mg po QHS PRN for insomnia - Melatonin 5 mg po QHS to promote circadian rhythm The patient agreed on the treatment plan, understood the risk, benefit, alternative treatment, potential consequence of no treatment, and gave informed consent. Estimated days: 7 Post hospital care: primary care provider, psychiatric provider Case staffed with Dr. Duarte Medications and Allergies Allergies Allergy/AdvReac Type Severity Reaction Status Date / Time gadoteridol [From Prohance] Allergy Unknown Verified 11/16/21 18:43 Home Medications Medication Instructions Recorded Confirmed Last Taken Type ALPRAZolam [Xanax TAB] 0.5 mg PO BID 11/19/21 11/19/21 Unknown History Atorvastatin [Lipitor Tab] 80 mg PO QDAY 11/19/21 11/19/21 Unknown History Sertraline [Zoloft] 25 mg PO QDAY 11/19/21 11/19/21 Unknown History Active Meds: Active Medications Al Hydrox/Mg Hydrox/Simethicone (Alum-Mag Hydroxide-Simethicone [id number]/5ml Oral Liqd 30 Ml) 30 ml PO Q4H PRN PRN Reason: Indigestion Last Admin: 11/22/21 16:54 Dose: 30 ml Alprazolam (Alprazolam 0.25 Mg Tab) 0.25 mg PO Q12HR [facility] Last Admin: 11/22/21 21:14 Dose: 0.25 mg Atorvastatin Calcium (Atorvastatin 40 Mg Tab) 80 mg PO QHS [facility] Last Admin: 11/22/21 21:14 Dose: 80 mg Melatonin (Melatonin 5 Mg Tab) 5 mg PO QHS PRN PRN Reason: Sleep Sertraline HCl (Sertraline 50 Mg Tab) 50 mg PO QDAY [facility] Last Admin: 11/22/21 09:16 Dose: 50 mg Trazodone HCl (Trazodone 50 Mg Tab) 50 mg PO QHS PRN PRN Reason: Sleep Results - Results Labs/Vitals: Laboratory Last Values WBC 9.8 K/mm3 (4.5-11.0) 11/19/21 23:14 RBC 3.69 M/mm3 (3.65-5.03) 11/19/21 23:14 Hgb 12.4 gm/dl (11.8-15.2) 11/19/21 23:14 Hct 35.9 % (35.5-45.6) 11/19/21 23:14 MCV 97 fl (84-94) H 11/19/21 23:14 MCH 34 pg (28-32) H 11/19/21 23:14 MCHC 35 % (32-34) H 11/19/21 23:14 RDW 14.7 % (13.2-15.2) 11/19/21 23:14 Plt Count 190 K/mm3 (140-440) 11/19/21 23:14 Baso % (Auto) Mental Tester 11/19/21 23:14 Add Manual Diff Complete 11/19/21 23:14 Total Counted 100 11/19/21 23:14 Seg Neuts % (Manual) 50.0 % (40.0-70.0) 11/19/21 23:14 Band Neutrophils % 0 % 11/19/21 23:14 Lymphocytes % (Manual) 34.0 % (13.4-35.0) 11/19/21 23:14 Reactive Lymphs % (Man) 0 % 11/19/21 23:14 Monocytes % (Manual) 12.0 % (0.0-7.3) H 11/19/21 23:14 Eosinophils % (Manual) 4.0 % (0.0-4.3) 11/19/21 23:14 Basophils % (Manual) 0 % (0.0-1.8) 11/19/21 23:14 Metamyelocytes % 0 % 11/19/21 23:14 Myelocytes % 0 % 11/19/21 23:14 Promyelocytes % 0 % 11/19/21 23:14 Blast Cells % 0 % 11/19/21 23:14 Nucleated RBC % Not Reportable 11/19/21 23:14 Seg Neutrophils # Man 4.9 K/mm3 (1.8-7.7) 11/19/21 23:14 Band Neutrophils # 0.0 K/mm3 11/19/21 23:14 Lymphocytes # (Manual) 3.3 K/mm3 (1.2-5.4) 11/19/21 23:14 Abs React Lymphs (Man) 0.0 K/mm3 11/19/21 23:14 Monocytes # (Manual) 1.2 K/mm3 (0.0-0.8) H 11/19/21 23:14 Eosinophils # (Manual) 0.4 K/mm3 (0.0-0.4) 11/19/21 23:14 Basophils # (Manual) 0.0 K/mm3 (0.0-0.1) 11/19/21 23:14 Metamyelocytes # 0.0 K/mm3 11/19/21 23:14 Myelocytes # 0.0 K/mm3 11/19/21 23:14 Promyelocytes # 0.0 K/mm3 11/19/21 23:14 Blast Cells # 0.0 K/mm3 11/19/21 23:14 WBC Morphology Not Reportable 11/19/21 23:14 Hypersegmented Neuts Not Reportable 11/19/21 23:14 Hyposegmented Neuts Not Reportable 11/19/21 23:14 Hypogranular Neuts Not Reportable 11/19/21 23:14 Smudge Cells Not Reportable 11/19/21 23:14 Toxic Granulation Not Reportable 11/19/21 23:14 Toxic Vacuolation Not Reportable 11/19/21 23:14 Dohle Bodies Not Reportable 11/19/21 23:14 Pelger-Huet Anomaly Not Reportable 11/19/21 23:14 Nemesio Rods Not Reportable 11/19/21 23:14 Platelet Estimate Consistent w auto 11/19/21 23:14 Clumped Platelets Not Reportable 11/19/21 23:14 Plt Clumps, EDTA Not Reportable 11/19/21 23:14 Large Platelets Not Reportable 11/19/21 23:14 Giant Platelets Not Reportable 11/19/21 23:14 Platelet Satelliting Not Reportable 11/19/21 23:14 Plt Morphology Comment Not Reportable 11/19/21 23:14 RBC Morphology Not Reportable 11/19/21 23:14 Dimorphic RBCs Not Reportable 11/19/21 23:14 Polychromasia Not Reportable 11/19/21 23:14 Hypochromasia Not Reportable 11/19/21 23:14 Poikilocytosis Not Reportable 11/19/21 23:14 Anisocytosis 1+ 11/19/21 23:14 Microcytosis Not Reportable 11/19/21 23:14 Macrocytosis Not Reportable 11/19/21 23:14 Spherocytes Not Reportable 11/19/21 23:14 Pappenheimer Bodies Not Reportable 11/19/21 23:14 Sickle Cells Not Reportable 11/19/21 23:14 Target Cells Few 11/19/21 23:14 Tear Drop Cells Not Reportable 11/19/21 23:14 Ovalocytes Few 11/19/21 23:14 Helmet Cells Not Reportable 11/19/21 23:14 [place] Bodies Not Reportable 11/19/21 23:14 [place] Rings Not Reportable 11/19/21 23:14 [place] Cells Not Reportable 11/19/21 23:14 Bite Cells Not Reportable 11/19/21 23:14 Crenated Cell Not Reportable 11/19/21 23:14 Elliptocytes Not Reportable 11/19/21 23:14 Acanthocytes (Spur) Rare 11/19/21 23:14 Rouleaux Not Reportable 11/19/21 23:14 Hemoglobin C Crystals Not Reportable 11/19/21 23:14 Schistocytes Not Reportable 11/19/21 23:14 Malaria parasites Not Reportable 11/19/21 23:14 Haim Bodies Not Reportable 11/19/21 23:14 Hem Pathologist Commnt No 11/19/21 23:14 Sodium 137 mmol/L (137-145) 11/19/21 23:14 Potassium 4.2 mmol/L (3.6-5.0) 11/19/21 23:14 Chloride 102.3 mmol/L (98-107) 11/19/21 23:14 Carbon Dioxide 24 mmol/L (22-30) 11/19/21 23:14 Anion Gap 15 mmol/L 11/19/21 23:14 BUN 19 mg/dL (9-20) 11/19/21 23:14 Creatinine 0.9 mg/dL (0.8-1.3) 11/19/21 23:14 Estimated GFR > 60 ml/min 11/19/21 23:14 BUN/Creatinine Ratio 21 % 11/19/21 23:14 Glucose 103 mg/dL (75-100) H 11/19/21 23:14 Hemoglobin A1c 5.8 % (4-6) 11/19/21 23:14 Calcium 9.2 mg/dL (8.4-10.2) 11/19/21 23:14 Total Bilirubin 0.30 mg/dL (0.1-1.2) 11/19/21 23:14 AST 54 units/L (5-40) H 11/19/21 23:14 ALT 46 units/L (7-56) 11/19/21 23:14 Alkaline Phosphatase 70 units/L (35-129) 11/19/21 23:14 Total Protein 7.0 g/dL (6.3-8.2) 11/19/21 23:14 Albumin 3.6 g/dL (3.9-5) L 11/19/21 23:14 Albumin/Globulin Ratio 1.1 % 11/19/21 23:14 Triglycerides 42 mg/dL (2-149) 11/19/21 23:14 Cholesterol 92 mg/dL (50-199) 11/19/21 23:14 LDL Cholesterol Direct 42 mg/dL (50-130) L 11/19/21 23:14 HDL Cholesterol 48 mg/dL (40-59) 11/19/21 23:14 Cholesterol/HDL Ratio 1.91 % 11/19/21 23:14 TSH 3.150 mlU/mL (0.270-4.200) 11/19/21 23:14 Last Vital Signs Temp 97.8 F 11/23/21 06:20 Pulse 74 11/22/21 08:22 Resp 18 11/23/21 06:20 BP 138/84 11/23/21 06:20 Pulse Ox 95 11/22/21 08:22
[2021-11-23] MEDS: ALPRAZolam 0.25 MG TAB PO SCH ×2 (09:36→21:04)
[2021-11-23] MEDS: SERTRALINE 50 MG TAB PO SCH (09:37)
[2021-11-24] MEDS: ALPRAZolam 0.25 MG TAB PO SCH ×2 (10:13→21:53)
[2021-11-24] MEDS: SERTRALINE 50 MG TAB PO SCH (10:13)
--- NOTE | 2021-11-24 16:25 | Progress Note ---
Subjective Date of service: 11/24/21 Principal diagnosis: vascular dementia w/ behavioral disturbance, mood disorder unspecified Subjective Comment: 11/24: Patient was seen today. Patient was alert and oriented x3 and cooperative throughout the interview. When asked how patient feels, patient reports "I'm alive." Patient denies depressive symptoms, denies suicidal ideation, homicidal ideation, denies hallucinations. Patient reports good sleep and appetite. Patient reports "I just want to get out of here." 11/23: Patient was seen today. Patient was alert and oriented x3 and cooperative throughout the interview. Patient reports feeling "same as usual." Patient continues to deny depressed mood and suicidal ideation. When asked if patient endorses HI patient reports "not yet," and laughs. Patient reports "I need a joint and a shot of liquor." Patient reports okay sleep and good appetite. Patient denies hallucinations. Patient reports interest in checking on how his sister is doing. 11/22: Patient was seen today. Patient was alert and oriented x3 and cooperative throughout the interview. Patient reports feeling "same as usual." Patient denies depressed mood and suicidal ideation "that's the last thing I want to do." Patient denies irritability and anxiety. Patient reports he needs a beer. Patient reports okay sleep and good appetite. Patient denies HI and hallucinations. 11/21: Patient was seen today. Patient was alert and oriented x3 and cooperative throughout the interview. When asked how he feels, patient responds "I'm here." Patient denies depressive sx. Patient reports "I need to get out of here." When asked where he wants to go, patient reports "anywhere, I'm ready to go." Patient denies irritability or other depressive sx. Patient denies anxiety. Patient denies suicidal ideation, homicidal ideation, and hallucinations. Patient reports good sleep and good appetite. 11/20: Patient was seen today. Patient was alert and oriented x3 and cooperative throughout the interview. Patient reports he feels "alright." Patient denies irritability or other depressive sx. Patient denies anxiety. Patient denies suicidal ideation, homicidal ideation, and hallucinations. Patient reports he slept okay and has good appetite. Patient denies any complaints. 11/19: The patient was seen today. He was first seen in the ER where he presented for severe agitation. During my evaluation today, the patient is calm and cooperative, but easily irritable. I ask him if he felt calm, he said "yea for now, long as nobody messing with me." The patient denies hallucinations or SI/HI. MENTAL STATUS EXAMINATION General Appearance and Behavior: Age appropriate, wearing appropriate clothes, cooperative Cooperation: cooperative Psychomotor Behavior: Psychomotor normal Mood: "I'm alive" Affect and affective range: irritable Thought Process: Goal oriented Thought Content: Reality based Speech: Normal volume, Regular rate and rhythm Suicidal Ideation: Denies Homicidal Ideation: Denies Hallucination: Denies Delusions: Denies Impulse Control: Normal Insight and Judgment: Limited Memory: Fair Attention: Attentive Orientation: a/o x 3 Diagnoses: Vascular dementia with behavioral disturbance Mood Disorder, Unspecified Treatment Plan Patient admitted for inpatient psychiatric evaluation, medication adjustment and close monitoring The patient's behavior, mood, sleep and appetite will be closely monitored. Patient enrolled in individual and group therapeutic sessions and encouraged to attend. Patient provided with a safe and structured environment. Patient's physical health needs will be addressed by the Hospitalist. Hospitalist Consulted Labs including CBC, CMP, Lipid profile and Hemoglobin A1C levels ordered for baseline reference Social Assessment will be completed and the Line Analyst will work with patient and family to ensure a suitable and safe disposition Medication adjustment will be made as clinically indicated - Maintain to Zoloft 50 mg qd - Maintain Xanax .25 mg BID Usual Wellness Sabianist/Preservation - Trazodone 50 mg po QHS PRN for insomnia - Melatonin 5 mg po QHS to promote circadian rhythm The patient agreed on the treatment plan, understood the risk, benefit, alternative treatment, potential consequence of no treatment, and gave informed consent. Estimated days: 3 Post hospital care: primary care provider, psychiatric provider Case staffed with Dr. Duarte Medications and Allergies Allergies Allergy/AdvReac Type Severity Reaction Status Date / Time gadoteridol [From Prohance] Allergy Unknown Verified 11/16/21 18:43 Home Medications Medication Instructions Recorded Confirmed Last Taken Type ALPRAZolam [Xanax TAB] 0.5 mg PO BID 11/19/21 11/19/21 Unknown History Atorvastatin [Lipitor Tab] 80 mg PO QDAY 11/19/21 11/19/21 Unknown History Sertraline [Zoloft] 25 mg PO QDAY 11/19/21 11/19/21 Unknown History Active Meds: Active Medications Al Hydrox/Mg Hydrox/Simethicone (Alum-Mag Hydroxide-Simethicone [id number]/5ml Oral Liqd 30 Ml) 30 ml PO Q4H PRN PRN Reason: Indigestion Last Admin: 11/22/21 16:54 Dose: 30 ml Alprazolam (Alprazolam 0.25 Mg Tab) 0.25 mg PO Q12HR [facility] Last Admin: 11/24/21 10:13 Dose: 0.25 mg Atorvastatin Calcium (Atorvastatin 40 Mg Tab) 80 mg PO QHS [facility] Last Admin: 11/23/21 21:04 Dose: 80 mg Melatonin (Melatonin 5 Mg Tab) 5 mg PO QHS PRN PRN Reason: Sleep Sertraline HCl (Sertraline 50 Mg Tab) 50 mg PO QDAY [facility] Last Admin: 11/24/21 10:13 Dose: 50 mg Trazodone HCl (Trazodone 50 Mg Tab) 50 mg PO QHS PRN PRN Reason: Sleep Results - Results Labs/Vitals: Laboratory Last Values WBC 9.8 K/mm3 (4.5-11.0) 11/19/21 23:14 RBC 3.69 M/mm3 (3.65-5.03) 11/19/21 23:14 Hgb 12.4 gm/dl (11.8-15.2) 11/19/21 23:14 Hct 35.9 % (35.5-45.6) 11/19/21 23:14 MCV 97 fl (84-94) H 11/19/21 23:14 MCH 34 pg (28-32) H 11/19/21 23:14 MCHC 35 % (32-34) H 11/19/21 23:14 RDW 14.7 % (13.2-15.2) 11/19/21 23:14 Plt Count 190 K/mm3 (140-440) 11/19/21 23:14 Baso % (Auto) [employer] 11/19/21 23:14 Add Manual Diff Complete 11/19/21 23:14 Total Counted 100 11/19/21 23:14 Seg Neuts % (Manual) 50.0 % (40.0-70.0) 11/19/21 23:14 Band Neutrophils % 0 % 11/19/21 23:14 Lymphocytes % (Manual) 34.0 % (13.4-35.0) 11/19/21 23:14 Reactive Lymphs % (Man) 0 % 11/19/21 23:14 Monocytes % (Manual) 12.0 % (0.0-7.3) H 11/19/21 23:14 Eosinophils % (Manual) 4.0 % (0.0-4.3) 11/19/21 23:14 Basophils % (Manual) 0 % (0.0-1.8) 11/19/21 23:14 Metamyelocytes % 0 % 11/19/21 23:14 Myelocytes % 0 % 11/19/21 23:14 Promyelocytes % 0 % 11/19/21 23:14 Blast Cells % 0 % 11/19/21 23:14 Nucleated RBC % Not Reportable 11/19/21 23:14 Seg Neutrophils # Man 4.9 K/mm3 (1.8-7.7) 11/19/21 23:14 Band Neutrophils # 0.0 K/mm3 11/19/21 23:14 Lymphocytes # (Manual) 3.3 K/mm3 (1.2-5.4) 11/19/21 23:14 Abs React Lymphs (Man) 0.0 K/mm3 11/19/21 23:14 Monocytes # (Manual) 1.2 K/mm3 (0.0-0.8) H 11/19/21 23:14 Eosinophils # (Manual) 0.4 K/mm3 (0.0-0.4) 11/19/21 23:14 Basophils # (Manual) 0.0 K/mm3 (0.0-0.1) 11/19/21 23:14 Metamyelocytes # 0.0 K/mm3 11/19/21 23:14 Myelocytes # 0.0 K/mm3 11/19/21 23:14 Promyelocytes # 0.0 K/mm3 11/19/21 23:14 Blast Cells # 0.0 K/mm3 11/19/21 23:14 WBC Morphology Not Reportable 11/19/21 23:14 Hypersegmented Neuts Not Reportable 11/19/21 23:14 Hyposegmented Neuts Not Reportable 11/19/21 23:14 Hypogranular Neuts Not Reportable 11/19/21 23:14 Smudge Cells Not Reportable 11/19/21 23:14 Toxic Granulation Not Reportable 11/19/21 23:14 Toxic Vacuolation Not Reportable 11/19/21 23:14 Dohle Bodies Not Reportable 11/19/21 23:14 Pelger-Huet Anomaly Not Reportable 11/19/21 23:14 Nemesio Rods Not Reportable 11/19/21 23:14 Platelet Estimate Consistent w auto 11/19/21 23:14 Clumped Platelets Not Reportable 11/19/21 23:14 Plt Clumps, EDTA Not Reportable 11/19/21 23:14 Large Platelets Not Reportable 11/19/21 23:14 Giant Platelets Not Reportable 11/19/21 23:14 Platelet Satelliting Not Reportable 11/19/21 23:14 Plt Morphology Comment Not Reportable 11/19/21 23:14 RBC Morphology Not Reportable 11/19/21 23:14 Dimorphic RBCs Not Reportable 11/19/21 23:14 Polychromasia Not Reportable 11/19/21 23:14 Hypochromasia Not Reportable 11/19/21 23:14 Poikilocytosis Not Reportable 11/19/21 23:14 Anisocytosis 1+ 11/19/21 23:14 Microcytosis Not Reportable 11/19/21 23:14 Macrocytosis Not Reportable 11/19/21 23:14 Spherocytes Not Reportable 11/19/21 23:14 Pappenheimer Bodies Not Reportable 11/19/21 23:14 Sickle Cells Not Reportable 11/19/21 23:14 Target Cells Few 11/19/21 23:14 Tear Drop Cells Not Reportable 11/19/21 23:14 Ovalocytes Few 11/19/21 23:14 Helmet Cells Not Reportable 11/19/21 23:14 [place] Bodies Not Reportable 11/19/21 23:14 [place] Rings Not Reportable 11/19/21 23:14 [place] Cells Not Reportable 11/19/21 23:14 Bite Cells Not Reportable 11/19/21 23:14 Crenated Cell Not Reportable 11/19/21 23:14 Elliptocytes Not Reportable 11/19/21 23:14 Acanthocytes (Spur) Rare 11/19/21 23:14 Rouleaux Not Reportable 11/19/21 23:14 Hemoglobin C Crystals Not Reportable 11/19/21 23:14 Schistocytes Not Reportable 11/19/21 23:14 Malaria parasites Not Reportable 11/19/21 23:14 Haim Bodies Not Reportable 11/19/21 23:14 Hem Pathologist Commnt No 11/19/21 23:14 Sodium 137 mmol/L (137-145) 11/19/21 23:14 Potassium 4.2 mmol/L (3.6-5.0) 11/19/21 23:14 Chloride 102.3 mmol/L (98-107) 11/19/21 23:14 Carbon Dioxide 24 mmol/L (22-30) 11/19/21 23:14 Anion Gap 15 mmol/L 11/19/21 23:14 BUN 19 mg/dL (9-20) 11/19/21 23:14 Creatinine 0.9 mg/dL (0.8-1.3) 11/19/21 23:14 Estimated GFR > 60 ml/min 11/19/21 23:14 BUN/Creatinine Ratio 21 % 11/19/21 23:14 Glucose 103 mg/dL (75-100) H 11/19/21 23:14 Hemoglobin A1c 5.8 % (4-6) 11/19/21 23:14 Calcium 9.2 mg/dL (8.4-10.2) 11/19/21 23:14 Total Bilirubin 0.30 mg/dL (0.1-1.2) 11/19/21 23:14 AST 54 units/L (5-40) H 11/19/21 23:14 ALT 46 units/L (7-56) 11/19/21 23:14 Alkaline Phosphatase 70 units/L (35-129) 11/19/21 23:14 Total Protein 7.0 g/dL (6.3-8.2) 11/19/21 23:14 Albumin 3.6 g/dL (3.9-5) L 11/19/21 23:14 Albumin/Globulin Ratio 1.1 % 11/19/21 23:14 Triglycerides 42 mg/dL (2-149) 11/19/21 23:14 Cholesterol 92 mg/dL (50-199) 11/19/21 23:14 LDL Cholesterol Direct 42 mg/dL (50-130) L 11/19/21 23:14 HDL Cholesterol 48 mg/dL (40-59) 11/19/21 23:14 Cholesterol/HDL Ratio 1.91 % 11/19/21 23:14 TSH 3.150 mlU/mL (0.270-4.200) 11/19/21 23:14 Last Vital Signs Temp 98.0 F 11/24/21 06:21 Pulse 71 11/24/21 06:21 Resp 18 11/24/21 06:21 BP 122/72 11/24/21 06:21 Pulse Ox 96 11/24/21 06:21
[2021-11-25] MEDS: ALPRAZolam 0.25 MG TAB PO SCH (09:25)
[2021-11-25] MEDS: SERTRALINE 50 MG TAB PO SCH (09:25)
[2021-11-25] MEDS ORDERED: hydrOXYzine PAMOATE 25 MG CAP PO PRN (11:00)
[2021-11-25] MEDS ORDERED: HALOPERIDOL LACTATE 5 MG/1 ML INJ IM PRN (11:00)
--- NOTE | 2021-11-25 12:23 | Progress Note ---
Subjective Date of service: 11/25/21 Principal diagnosis: vascular dementia w/ behavioral disturbance, mood disorder unspecified Subjective Comment: 11/25: Patient was seen today. Patient was in bed but responsive to voice. Patient was oriented x1 and cooperative throughout the interview. Patient reports he's feeling "alright," and slept okay and has good appetite. Patient patient denies depressive sx, SI HI or hallucinations. Nursing notes report patient has had increasing irritability since decreasing xanax to .25 BID on 11/22. In the afternoon, patient was heard beating on the unit's doors. Patient was saying "I don't want to be here," and "just let me go." This provider talked with patient and discussed expectations and concerns with his behavior on the unit. 11/24: Patient was seen today. Patient was alert and oriented x3 and cooperative throughout the interview. When asked how patient feels, patient reports "I'm alive." Patient denies depressive symptoms, denies suicidal ideation, homicidal ideation, denies hallucinations. Patient reports good sleep and appetite. Patient reports "I just want to get out of here." 11/23: Patient was seen today. Patient was alert and oriented x3 and cooperative throughout the interview. Patient reports feeling "same as usual." Patient continues to deny depressed mood and suicidal ideation. When asked if patient endorses HI patient reports "not yet," and laughs. Patient reports "I need a joint and a shot of liquor." Patient reports okay sleep and good appetite. Patient denies hallucinations. Patient reports interest in checking on how his sister is doing. 11/22: Patient was seen today. Patient was alert and oriented x3 and cooperative throughout the interview. Patient reports feeling "same as usual." Patient denies depressed mood and suicidal ideation "that's the last thing I want to do." Patient denies irritability and anxiety. Patient reports he needs a beer. Patient reports okay sleep and good appetite. Patient denies HI and hallucinations. 11/21: Patient was seen today. Patient was alert and oriented x3 and cooperative throughout the interview. When asked how he feels, patient responds "I'm here." Patient denies depressive sx. Patient reports "I need to get out of here." When asked where he wants to go, patient reports "anywhere, I'm ready to go." Patient denies irritability or other depressive sx. Patient denies anxiety. Patient denies suicidal ideation, homicidal ideation, and hallucinations. Patient reports good sleep and good appetite. 11/20: Patient was seen today. Patient was alert and oriented x3 and cooperative throughout the interview. Patient reports he feels "alright." Patient denies irritability or other depressive sx. Patient denies anxiety. Patient denies suicidal ideation, homicidal ideation, and hallucinations. Patient reports he slept okay and has good appetite. Patient denies any complaints. 11/19: The patient was seen today. He was first seen in the ER where he presented for severe agitation. During my evaluation today, the patient is calm and cooperative, but easily irritable. I ask him if he felt calm, he said "yea for now, long as nobody messing with me." The patient denies hallucinations or SI/HI. MENTAL STATUS EXAMINATION General Appearance and Behavior: Age appropriate, wearing appropriate clothes, cooperative Cooperation: cooperative Psychomotor Behavior: Psychomotor normal Mood: "alright," Affect and affective range: irritable Thought Process: Goal oriented Thought Content: Reality based Speech: Normal volume, Regular rate and rhythm Suicidal Ideation: Denies Homicidal Ideation: Denies Hallucination: Denies Delusions: Denies Impulse Control: Normal Insight and Judgment: Limited Memory: Fair Attention: Attentive Orientation: a/o x 1 Diagnoses: Vascular dementia with behavioral disturbance Mood disorder, unspecified Treatment Plan Patient admitted for inpatient psychiatric evaluation, medication adjustment and close monitoring The patient's behavior, mood, sleep and appetite will be closely monitored. Patient enrolled in individual and group therapeutic sessions and encouraged to attend. Patient provided with a safe and structured environment. Patient's physical health needs will be addressed by the Hospitalist. Hospitalist Consulted Labs including CBC, CMP, Lipid profile and Hemoglobin A1C levels ordered for baseline reference Social Assessment will be completed and the Vice President Network will work with patient and family to ensure a suitable and safe disposition Medication adjustment will be made as clinically indicated - Increase to Zoloft 75 mg qd - Increase xanax .5 mg BID in AM - Maintain xanax .25 mg qhs Usual Wellness Church/Preservation - Trazodone 50 mg po QHS PRN for insomnia - Melatonin 5 mg po QHS to promote circadian rhythm The patient agreed on the treatment plan, understood the risk, benefit, alternative treatment, potential consequence of no treatment, and gave informed consent. Estimated days: 3 Post hospital care: primary care provider, psychiatric provider Case staffed with Dr. Duarte Medications and Allergies Allergies Allergy/AdvReac Type Severity Reaction Status Date / Time gadoteridol [From Prohance] Allergy Unknown Verified 11/16/21 18:43 Home Medications Medication Instructions Recorded Confirmed Last Taken Type ALPRAZolam [Xanax TAB] 0.5 mg PO BID 11/19/21 11/19/21 Unknown History Atorvastatin [Lipitor Tab] 80 mg PO QDAY 11/19/21 11/19/21 Unknown History Sertraline [Zoloft] 25 mg PO QDAY 11/19/21 11/19/21 Unknown History Active Meds: Active Medications Al Hydrox/Mg Hydrox/Simethicone (Alum-Mag Hydroxide-Simethicone [id number]/5ml Oral Liqd 30 Ml) 30 ml PO Q4H PRN PRN Reason: Indigestion Last Admin: 11/22/21 16:54 Dose: 30 ml Alprazolam (Alprazolam 0.25 Mg Tab) 0.25 mg PO Q12HR [facility] Last Admin: 11/25/21 09:25 Dose: 0.25 mg Atorvastatin Calcium (Atorvastatin 40 Mg Tab) 80 mg PO QHS [facility] Last Admin: 11/24/21 21:53 Dose: 80 mg Haloperidol Lactate (Haloperidol Lactate 5 Mg/1 Ml Inj) 5 mg IM Q6H PRN PRN Reason: Agitation Melatonin (Melatonin 5 Mg Tab) 5 mg PO QHS PRN PRN Reason: Sleep Sertraline HCl (Sertraline 50 Mg Tab) 75 mg PO QDAY [facility] Trazodone HCl (Trazodone 50 Mg Tab) 50 mg PO QHS PRN PRN Reason: Sleep Results - Results Labs/Vitals: Laboratory Last Values WBC 9.8 K/mm3 (4.5-11.0) 11/19/21 23:14 RBC 3.69 M/mm3 (3.65-5.03) 11/19/21 23:14 Hgb 12.4 gm/dl (11.8-15.2) 11/19/21 23:14 Hct 35.9 % (35.5-45.6) 11/19/21 23:14 MCV 97 fl (84-94) H 11/19/21 23:14 MCH 34 pg (28-32) H 11/19/21 23:14 MCHC 35 % (32-34) H 11/19/21 23:14 RDW 14.7 % (13.2-15.2) 11/19/21 23:14 Plt Count 190 K/mm3 (140-440) 11/19/21 23:14 Baso % (Auto) Chief Construction Inspector 11/19/21 23:14 Add Manual Diff Complete 11/19/21 23:14 Total Counted 100 11/19/21 23:14 Seg Neuts % (Manual) 50.0 % (40.0-70.0) 11/19/21 23:14 Band Neutrophils % 0 % 11/19/21 23:14 Lymphocytes % (Manual) 34.0 % (13.4-35.0) 11/19/21 23:14 Reactive Lymphs % (Man) 0 % 11/19/21 23:14 Monocytes % (Manual) 12.0 % (0.0-7.3) H 11/19/21 23:14 Eosinophils % (Manual) 4.0 % (0.0-4.3) 11/19/21 23:14 Basophils % (Manual) 0 % (0.0-1.8) 11/19/21 23:14 Metamyelocytes % 0 % 11/19/21 23:14 Myelocytes % 0 % 11/19/21 23:14 Promyelocytes % 0 % 11/19/21 23:14 Blast Cells % 0 % 11/19/21 23:14 Nucleated RBC % Not Reportable 11/19/21 23:14 Seg Neutrophils # Man 4.9 K/mm3 (1.8-7.7) 11/19/21 23:14 Band Neutrophils # 0.0 K/mm3 11/19/21 23:14 Lymphocytes # (Manual) 3.3 K/mm3 (1.2-5.4) 11/19/21 23:14 Abs React Lymphs (Man) 0.0 K/mm3 11/19/21 23:14 Monocytes # (Manual) 1.2 K/mm3 (0.0-0.8) H 11/19/21 23:14 Eosinophils # (Manual) 0.4 K/mm3 (0.0-0.4) 11/19/21 23:14 Basophils # (Manual) 0.0 K/mm3 (0.0-0.1) 11/19/21 23:14 Metamyelocytes # 0.0 K/mm3 11/19/21 23:14 Myelocytes # 0.0 K/mm3 11/19/21 23:14 Promyelocytes # 0.0 K/mm3 11/19/21 23:14 Blast Cells # 0.0 K/mm3 11/19/21 23:14 WBC Morphology Not Reportable 11/19/21 23:14 Hypersegmented Neuts Not Reportable 11/19/21 23:14 Hyposegmented Neuts Not Reportable 11/19/21 23:14 Hypogranular Neuts Not Reportable 11/19/21 23:14 Smudge Cells Not Reportable 11/19/21 23:14 Toxic Granulation Not Reportable 11/19/21 23:14 Toxic Vacuolation Not Reportable 11/19/21 23:14 Dohle Bodies Not Reportable 11/19/21 23:14 Pelger-Huet Anomaly Not Reportable 11/19/21 23:14 Nemesio Rods Not Reportable 11/19/21 23:14 Platelet Estimate Consistent w auto 11/19/21 23:14 Clumped Platelets Not Reportable 11/19/21 23:14 Plt Clumps, EDTA Not Reportable 11/19/21 23:14 Large Platelets Not Reportable 11/19/21 23:14 Giant Platelets Not Reportable 11/19/21 23:14 Platelet Satelliting Not Reportable 11/19/21 23:14 Plt Morphology Comment Not Reportable 11/19/21 23:14 RBC Morphology Not Reportable 11/19/21 23:14 Dimorphic RBCs Not Reportable 11/19/21 23:14 Polychromasia Not Reportable 11/19/21 23:14 Hypochromasia Not Reportable 11/19/21 23:14 Poikilocytosis Not Reportable 11/19/21 23:14 Anisocytosis 1+ 11/19/21 23:14 Microcytosis Not Reportable 11/19/21 23:14 Macrocytosis Not Reportable 11/19/21 23:14 Spherocytes Not Reportable 11/19/21 23:14 Pappenheimer Bodies Not Reportable 11/19/21 23:14 Sickle Cells Not Reportable 11/19/21 23:14 Target Cells Few 11/19/21 23:14 Tear Drop Cells Not Reportable 11/19/21 23:14 Ovalocytes Few 11/19/21 23:14 Helmet Cells Not Reportable 11/19/21 23:14 [place] Bodies Not Reportable 11/19/21 23:14 [place] Rings Not Reportable 11/19/21 23:14 [place] Cells Not Reportable 11/19/21 23:14 Bite Cells Not Reportable 11/19/21 23:14 Crenated Cell Not Reportable 11/19/21 23:14 Elliptocytes Not Reportable 11/19/21 23:14 Acanthocytes (Spur) Rare 11/19/21 23:14 Rouleaux Not Reportable 11/19/21 23:14 Hemoglobin C Crystals Not Reportable 11/19/21 23:14 Schistocytes Not Reportable 11/19/21 23:14 Malaria parasites Not Reportable 11/19/21 23:14 Haim Bodies Not Reportable 11/19/21 23:14 Hem Pathologist Commnt No 11/19/21 23:14 Sodium 137 mmol/L (137-145) 11/19/21 23:14 Potassium 4.2 mmol/L (3.6-5.0) 11/19/21 23:14 Chloride 102.3 mmol/L (98-107) 11/19/21 23:14 Carbon Dioxide 24 mmol/L (22-30) 11/19/21 23:14 Anion Gap 15 mmol/L 11/19/21 23:14 BUN 19 mg/dL (9-20) 11/19/21 23:14 Creatinine 0.9 mg/dL (0.8-1.3) 11/19/21 23:14 Estimated GFR > 60 ml/min 11/19/21 23:14 BUN/Creatinine Ratio 21 % 11/19/21 23:14 Glucose 103 mg/dL (75-100) H 11/19/21 23:14 Hemoglobin A1c 5.8 % (4-6) 11/19/21 23:14 Calcium 9.2 mg/dL (8.4-10.2) 11/19/21 23:14 Total Bilirubin 0.30 mg/dL (0.1-1.2) 11/19/21 23:14 AST 54 units/L (5-40) H 11/19/21 23:14 ALT 46 units/L (7-56) 11/19/21 23:14 Alkaline Phosphatase 70 units/L (35-129) 11/19/21 23:14 Total Protein 7.0 g/dL (6.3-8.2) 11/19/21 23:14 Albumin 3.6 g/dL (3.9-5) L 11/19/21 23:14 Albumin/Globulin Ratio 1.1 % 11/19/21 23:14 Triglycerides 42 mg/dL (2-149) 11/19/21 23:14 Cholesterol 92 mg/dL (50-199) 11/19/21 23:14 LDL Cholesterol Direct 42 mg/dL (50-130) L 11/19/21 23:14 HDL Cholesterol 48 mg/dL (40-59) 11/19/21 23:14 Cholesterol/HDL Ratio 1.91 % 11/19/21 23:14 TSH 3.150 mlU/mL (0.270-4.200) 11/19/21 23:14 Last Vital Signs Temp 97.3 F L 11/25/21 06:21 Pulse 72 11/25/21 06:21 Resp 18 11/25/21 06:21 BP 124/84 11/25/21 06:21 Pulse Ox 95 11/25/21 06:21
--- NOTE | 2021-11-25 13:41 | Progress Note ---
Assessment and Plan - Patient Problems (1) Vascular dementia with behavioral disturbance Current Visit: Yes Status: Acute Plan to address problem: Verbal prompting, verbal redirection, benzodiazepine therapy as clinically indicated. (2) Cerebral atherosclerosis Current Visit: Yes Status: Acute Plan to address problem: Antiplatelet therapy as clinically indicated, risk factor reduction. (3) Hypertension Current Visit: Yes Status: Acute Qualifiers: Hypertension type: primary hypertension Qualified Code(s): I10 - Essential (primary) hypertension Plan to address problem: Monitor blood pressure every shift, continue medical management. (4) Hyperlipidemia Current Visit: Yes Status: Acute Plan to address problem: Statin therapy, low-cholesterol diet (5) Generalized anxiety disorder Current Visit: Yes Status: Acute Plan to address problem: Benzodiazepine therapy as clinically indicated. (6) Major depression Current Visit: Yes Status: Acute Plan to address problem: Continue medical management, cognitive behavioral therapy. (7) Advance care planning Current Visit: Yes Status: Acute Plan to address problem: Disease education done, care plan discussed, diagnoses discussed, prognosis discussed, patient is full code. Patient acknowledges understanding and agreement with care plan, +30 minutes. (8) Preventative health care Current Visit: Yes Status: Acute Plan to address problem: Patient counseled regarding outpatient follow-up with primary care physician for all age and risk factor appropriate screening test. +30 minutes. History Interval history: 66 YO Male with Vascular Dementia with Behavioral Disturbance, Cerebral Atherosclerosis, HTN, HLD, DESTIN, MDD admitted to [facility] for psychiatric stabilization. Consult placed by Dr. Pal for medical management. Patient seen and evaluated in the recreation room. No reported nursing events. Patient appears to be at baseline level of cognition and function. Hospitalist Physical - Constitutional Vitals: Temp Pulse Resp BP Pulse Ox 97.3 F L 72 18 124/84 95 11/25/21 06:21 11/25/21 06:21 11/25/21 06:21 11/25/21 06:21 11/25/21 06:21 General appearance: Present: no acute distress - EENT Eyes: Present: PERRL ENT: hearing decreased - Neck Neck: Present: supple - Respiratory Respiratory effort: normal Respiratory: bilateral: CTA - Cardiovascular Rhythm: regular Heart Sounds: Present: S1 & S2 - Extremities Extremities: no ischemia Peripheral Pulses: within normal limits - Abdominal General gastrointestinal: soft, non-tender, non-distended - Integumentary Integumentary: Present: clear, dry - Psychiatric Psychiatric: cooperative - Neurologic Neurologic: CNII-XII intact Results - Labs CBC & Chem 7: 11/19/21 23:14 11/19/21 23:14 Labs: Laboratory Last Values WBC 9.8 K/mm3 (4.5-11.0) 11/19/21 23:14 RBC 3.69 M/mm3 (3.65-5.03) 11/19/21 23:14 Hgb 12.4 gm/dl (11.8-15.2) 11/19/21 23:14 Hct 35.9 % (35.5-45.6) 11/19/21 23:14 MCV 97 fl (84-94) H 11/19/21 23:14 MCH 34 pg (28-32) H 11/19/21 23:14 MCHC 35 % (32-34) H 11/19/21 23:14 RDW 14.7 % (13.2-15.2) 11/19/21 23:14 Plt Count 190 K/mm3 (140-440) 11/19/21 23:14 Baso % (Auto) Global Program Manager 11/19/21 23:14 Add Manual Diff Complete 11/19/21 23:14 Total Counted 100 11/19/21 23:14 Seg Neuts % (Manual) 50.0 % (40.0-70.0) 11/19/21 23:14 Band Neutrophils % 0 % 11/19/21 23:14 Lymphocytes % (Manual) 34.0 % (13.4-35.0) 11/19/21 23:14 Reactive Lymphs % (Man) 0 % 11/19/21 23:14 Monocytes % (Manual) 12.0 % (0.0-7.3) H 11/19/21 23:14 Eosinophils % (Manual) 4.0 % (0.0-4.3) 11/19/21 23:14 Basophils % (Manual) 0 % (0.0-1.8) 11/19/21 23:14 Metamyelocytes % 0 % 11/19/21 23:14 Myelocytes % 0 % 11/19/21 23:14 Promyelocytes % 0 % 11/19/21 23:14 Blast Cells % 0 % 11/19/21 23:14 Nucleated RBC % Not Reportable 11/19/21 23:14 Seg Neutrophils # Man 4.9 K/mm3 (1.8-7.7) 11/19/21 23:14 Band Neutrophils # 0.0 K/mm3 11/19/21 23:14 Lymphocytes # (Manual) 3.3 K/mm3 (1.2-5.4) 11/19/21 23:14 Abs React Lymphs (Man) 0.0 K/mm3 11/19/21 23:14 Monocytes # (Manual) 1.2 K/mm3 (0.0-0.8) H 11/19/21 23:14 Eosinophils # (Manual) 0.4 K/mm3 (0.0-0.4) 11/19/21 23:14 Basophils # (Manual) 0.0 K/mm3 (0.0-0.1) 11/19/21 23:14 Metamyelocytes # 0.0 K/mm3 11/19/21 23:14 Myelocytes # 0.0 K/mm3 11/19/21 23:14 Promyelocytes # 0.0 K/mm3 11/19/21 23:14 Blast Cells # 0.0 K/mm3 11/19/21 23:14 WBC Morphology Not Reportable 11/19/21 23:14 Hypersegmented Neuts Not Reportable 11/19/21 23:14 Hyposegmented Neuts Not Reportable 11/19/21 23:14 Hypogranular Neuts Not Reportable 11/19/21 23:14 Smudge Cells Not Reportable 11/19/21 23:14 Toxic Granulation Not Reportable 11/19/21 23:14 Toxic Vacuolation Not Reportable 11/19/21 23:14 Dohle Bodies Not Reportable 11/19/21 23:14 Pelger-Huet Anomaly Not Reportable 11/19/21 23:14 Nemesio Rods Not Reportable 11/19/21 23:14 Platelet Estimate Consistent w auto 11/19/21 23:14 Clumped Platelets Not Reportable 11/19/21 23:14 Plt Clumps, EDTA Not Reportable 11/19/21 23:14 Large Platelets Not Reportable 11/19/21 23:14 Giant Platelets Not Reportable 11/19/21 23:14 Platelet Satelliting Not Reportable 11/19/21 23:14 Plt Morphology Comment Not Reportable 11/19/21 23:14 RBC Morphology Not Reportable 11/19/21 23:14 Dimorphic RBCs Not Reportable 11/19/21 23:14 Polychromasia Not Reportable 11/19/21 23:14 Hypochromasia Not Reportable 11/19/21 23:14 Poikilocytosis Not Reportable 11/19/21 23:14 Anisocytosis 1+ 11/19/21 23:14 Microcytosis Not Reportable 11/19/21 23:14 Macrocytosis Not Reportable 11/19/21 23:14 Spherocytes Not Reportable 11/19/21 23:14 Pappenheimer Bodies Not Reportable 11/19/21 23:14 Sickle Cells Not Reportable 11/19/21 23:14 Target Cells Few 11/19/21 23:14 Tear Drop Cells Not Reportable 11/19/21 23:14 Ovalocytes Few 11/19/21 23:14 Helmet Cells Not Reportable 11/19/21 23:14 [place] Bodies Not Reportable 11/19/21 23:14 [place] Rings Not Reportable 11/19/21 23:14 Ryan Cells Not Reportable 11/19/21 23:14 Bite Cells Not Reportable 11/19/21 23:14 Crenated Cell Not Reportable 11/19/21 23:14 Elliptocytes Not Reportable 11/19/21 23:14 Acanthocytes (Spur) Rare 11/19/21 23:14 Rouleaux Not Reportable 11/19/21 23:14 Hemoglobin C Crystals Not Reportable 11/19/21 23:14 Schistocytes Not Reportable 11/19/21 23:14 Malaria parasites Not Reportable 11/19/21 23:14 Haim Bodies Not Reportable 11/19/21 23:14 Hem Pathologist Commnt No 11/19/21 23:14 Sodium 137 mmol/L (137-145) 11/19/21 23:14 Potassium 4.2 mmol/L (3.6-5.0) 11/19/21 23:14 Chloride 102.3 mmol/L (98-107) 11/19/21 23:14 Carbon Dioxide 24 mmol/L (22-30) 11/19/21 23:14 Anion Gap 15 mmol/L 11/19/21 23:14 BUN 19 mg/dL (9-20) 11/19/21 23:14 Creatinine 0.9 mg/dL (0.8-1.3) 11/19/21 23:14 Estimated GFR > 60 ml/min 11/19/21 23:14 BUN/Creatinine Ratio 21 % 11/19/21 23:14 Glucose 103 mg/dL (75-100) H 11/19/21 23:14 Hemoglobin A1c 5.8 % (4-6) 11/19/21 23:14 Calcium 9.2 mg/dL (8.4-10.2) 11/19/21 23:14 Total Bilirubin 0.30 mg/dL (0.1-1.2) 11/19/21 23:14 AST 54 units/L (5-40) H 11/19/21 23:14 ALT 46 units/L (7-56) 11/19/21 23:14 Alkaline Phosphatase 70 units/L (35-129) 11/19/21 23:14 Total Protein 7.0 g/dL (6.3-8.2) 11/19/21 23:14 Albumin 3.6 g/dL (3.9-5) L 11/19/21 23:14 Albumin/Globulin Ratio 1.1 % 11/19/21 23:14 Triglycerides 42 mg/dL (2-149) 11/19/21 23:14 Cholesterol 92 mg/dL (50-199) 11/19/21 23:14 LDL Cholesterol Direct 42 mg/dL (50-130) L 11/19/21 23:14 HDL Cholesterol 48 mg/dL (40-59) 11/19/21 23:14 Cholesterol/HDL Ratio 1.91 % 11/19/21 23:14 TSH 3.150 mlU/mL (0.270-4.200) 11/19/21 23:14 Pfeiffer/IV: Voiding Method Toilet Active Medications - Current Medications Current Medications: Generic Name Dose Route Start Last Admin Trade Name Freq PRN Reason Stop Dose Admin Al Hydrox/Mg Hydrox/Simethicone 30 ml 11/22/21 17:00 11/22/21 16:54 Alum-Mag Hydroxide-Simethicone 369-037-24ow/5ml Oral Liqd 30 Ml PO 30 ml Q4H PRN Administration Indigestion Alprazolam 0.25 mg 11/22/21 10:00 11/25/21 09:25 Alprazolam 0.25 Mg Tab PO 0.25 mg Q12HR DENNY Administration Atorvastatin Calcium 80 mg 11/19/21 22:00 11/24/21 21:53 Atorvastatin 40 Mg Tab PO 80 mg QHS DENNY Administration Haloperidol Lactate 5 mg 11/25/21 11:00 Haloperidol Lactate 5 Mg/1 Ml Inj IM Q6H PRN Agitation Melatonin 5 mg 11/21/21 22:35 Melatonin 5 Mg Tab PO QHS PRN Sleep Sertraline HCl 75 mg 11/26/21 10:00 Sertraline 50 Mg Tab PO QDAY DENNY Trazodone HCl 50 mg 11/21/21 22:36 Trazodone 50 Mg Tab PO QHS PRN Sleep
--- NOTE | 2021-11-25 21:12 | Progress Note ---
Assessment and Plan - Patient Problems (1) Vascular dementia with behavioral disturbance Current Visit: Yes Status: Acute Plan to address problem: Verbal prompting, verbal redirection, benzodiazepine therapy as clinically indicated. (2) Cerebral atherosclerosis Current Visit: Yes Status: Acute Plan to address problem: Antiplatelet therapy as clinically indicated, risk factor reduction. (3) Hypertension Current Visit: Yes Status: Acute Qualifiers: Hypertension type: primary hypertension Qualified Code(s): I10 - Essential (primary) hypertension Plan to address problem: Monitor blood pressure every shift, continue medical management. (4) Hyperlipidemia Current Visit: Yes Status: Acute Plan to address problem: Statin therapy, low-cholesterol diet (5) Generalized anxiety disorder Current Visit: Yes Status: Acute Plan to address problem: Benzodiazepine therapy as clinically indicated. (6) Major depression Current Visit: Yes Status: Acute Plan to address problem: Continue medical management, cognitive behavioral therapy. (7) Advance care planning Current Visit: Yes Status: Acute Plan to address problem: Disease education done, care plan discussed, diagnoses discussed, prognosis discussed, patient is full code. Patient acknowledges understanding and agreement with care plan, +30 minutes. (8) Preventative health care Current Visit: Yes Status: Acute Plan to address problem: Patient counseled regarding outpatient follow-up with primary care physician for all age and risk factor appropriate screening test. +30 minutes. History Interval history: 66 YO Male with Vascular Dementia with Behavioral Disturbance, Cerebral Atherosclerosis, HTN, HLD, DESTIN, MDD admitted to [facility] for psychiatric stabilization. Consult placed by Dr. Pal for medical management. Patient seen and evaluated in the recreation room. No reported nursing events. Patient appears to be at baseline level of cognition and function. Hospitalist Physical - Constitutional Vitals: Temp Pulse Resp BP Pulse Ox 97.4 F L 67 18 118/73 96 11/25/21 19:04 11/25/21 19:04 11/25/21 19:04 11/25/21 19:04 11/25/21 19:04 General appearance: Present: no acute distress - EENT Eyes: Present: PERRL ENT: hearing decreased - Neck Neck: Present: supple - Respiratory Respiratory effort: normal Respiratory: bilateral: CTA - Cardiovascular Rhythm: regular Heart Sounds: Present: S1 & S2 - Extremities Extremities: no ischemia Peripheral Pulses: within normal limits - Abdominal General gastrointestinal: soft, non-tender, non-distended - Integumentary Integumentary: Present: clear, dry - Psychiatric Psychiatric: cooperative - Neurologic Neurologic: CNII-XII intact Results - Labs CBC & Chem 7: 11/19/21 23:14 11/19/21 23:14 Labs: Laboratory Last Values WBC 9.8 K/mm3 (4.5-11.0) 11/19/21 23:14 RBC 3.69 M/mm3 (3.65-5.03) 11/19/21 23:14 Hgb 12.4 gm/dl (11.8-15.2) 11/19/21 23:14 Hct 35.9 % (35.5-45.6) 11/19/21 23:14 MCV 97 fl (84-94) H 11/19/21 23:14 MCH 34 pg (28-32) H 11/19/21 23:14 MCHC 35 % (32-34) H 11/19/21 23:14 RDW 14.7 % (13.2-15.2) 11/19/21 23:14 Plt Count 190 K/mm3 (140-440) 11/19/21 23:14 Baso % (Auto) Drivematic Machine Operator 11/19/21 23:14 Add Manual Diff Complete 11/19/21 23:14 Total Counted 100 11/19/21 23:14 Seg Neuts % (Manual) 50.0 % (40.0-70.0) 11/19/21 23:14 Band Neutrophils % 0 % 11/19/21 23:14 Lymphocytes % (Manual) 34.0 % (13.4-35.0) 11/19/21 23:14 Reactive Lymphs % (Man) 0 % 11/19/21 23:14 Monocytes % (Manual) 12.0 % (0.0-7.3) H 11/19/21 23:14 Eosinophils % (Manual) 4.0 % (0.0-4.3) 11/19/21 23:14 Basophils % (Manual) 0 % (0.0-1.8) 11/19/21 23:14 Metamyelocytes % 0 % 11/19/21 23:14 Myelocytes % 0 % 11/19/21 23:14 Promyelocytes % 0 % 11/19/21 23:14 Blast Cells % 0 % 11/19/21 23:14 Nucleated RBC % Not Reportable 11/19/21 23:14 Seg Neutrophils # Man 4.9 K/mm3 (1.8-7.7) 11/19/21 23:14 Band Neutrophils # 0.0 K/mm3 11/19/21 23:14 Lymphocytes # (Manual) 3.3 K/mm3 (1.2-5.4) 11/19/21 23:14 Abs React Lymphs (Man) 0.0 K/mm3 11/19/21 23:14 Monocytes # (Manual) 1.2 K/mm3 (0.0-0.8) H 11/19/21 23:14 Eosinophils # (Manual) 0.4 K/mm3 (0.0-0.4) 11/19/21 23:14 Basophils # (Manual) 0.0 K/mm3 (0.0-0.1) 11/19/21 23:14 Metamyelocytes # 0.0 K/mm3 11/19/21 23:14 Myelocytes # 0.0 K/mm3 11/19/21 23:14 Promyelocytes # 0.0 K/mm3 11/19/21 23:14 Blast Cells # 0.0 K/mm3 11/19/21 23:14 WBC Morphology Not Reportable 11/19/21 23:14 Hypersegmented Neuts Not Reportable 11/19/21 23:14 Hyposegmented Neuts Not Reportable 11/19/21 23:14 Hypogranular Neuts Not Reportable 11/19/21 23:14 Smudge Cells Not Reportable 11/19/21 23:14 Toxic Granulation Not Reportable 11/19/21 23:14 Toxic Vacuolation Not Reportable 11/19/21 23:14 Dohle Bodies Not Reportable 11/19/21 23:14 Pelger-Huet Anomaly Not Reportable 11/19/21 23:14 Nemesio Rods Not Reportable 11/19/21 23:14 Platelet Estimate Consistent w auto 11/19/21 23:14 Clumped Platelets Not Reportable 11/19/21 23:14 Plt Clumps, EDTA Not Reportable 11/19/21 23:14 Large Platelets Not Reportable 11/19/21 23:14 Giant Platelets Not Reportable 11/19/21 23:14 Platelet Satelliting Not Reportable 11/19/21 23:14 Plt Morphology Comment Not Reportable 11/19/21 23:14 RBC Morphology Not Reportable 11/19/21 23:14 Dimorphic RBCs Not Reportable 11/19/21 23:14 Polychromasia Not Reportable 11/19/21 23:14 Hypochromasia Not Reportable 11/19/21 23:14 Poikilocytosis Not Reportable 11/19/21 23:14 Anisocytosis 1+ 11/19/21 23:14 Microcytosis Not Reportable 11/19/21 23:14 Macrocytosis Not Reportable 11/19/21 23:14 Spherocytes Not Reportable 11/19/21 23:14 Pappenheimer Bodies Not Reportable 11/19/21 23:14 Sickle Cells Not Reportable 11/19/21 23:14 Target Cells Few 11/19/21 23:14 Tear Drop Cells Not Reportable 11/19/21 23:14 Ovalocytes Few 11/19/21 23:14 Helmet Cells Not Reportable 11/19/21 23:14 [place] Bodies Not Reportable 11/19/21 23:14 [place] Rings Not Reportable 11/19/21 23:14 Ryan Cells Not Reportable 11/19/21 23:14 Bite Cells Not Reportable 11/19/21 23:14 Crenated Cell Not Reportable 11/19/21 23:14 Elliptocytes Not Reportable 11/19/21 23:14 Acanthocytes (Spur) Rare 11/19/21 23:14 Rouleaux Not Reportable 11/19/21 23:14 Hemoglobin C Crystals Not Reportable 11/19/21 23:14 Schistocytes Not Reportable 11/19/21 23:14 Malaria parasites Not Reportable 11/19/21 23:14 Haim Bodies Not Reportable 11/19/21 23:14 Hem Pathologist Commnt No 11/19/21 23:14 Sodium 137 mmol/L (137-145) 11/19/21 23:14 Potassium 4.2 mmol/L (3.6-5.0) 11/19/21 23:14 Chloride 102.3 mmol/L (98-107) 11/19/21 23:14 Carbon Dioxide 24 mmol/L (22-30) 11/19/21 23:14 Anion Gap 15 mmol/L 11/19/21 23:14 BUN 19 mg/dL (9-20) 11/19/21 23:14 Creatinine 0.9 mg/dL (0.8-1.3) 11/19/21 23:14 Estimated GFR > 60 ml/min 11/19/21 23:14 BUN/Creatinine Ratio 21 % 11/19/21 23:14 Glucose 103 mg/dL (75-100) H 11/19/21 23:14 Hemoglobin A1c 5.8 % (4-6) 11/19/21 23:14 Calcium 9.2 mg/dL (8.4-10.2) 11/19/21 23:14 Total Bilirubin 0.30 mg/dL (0.1-1.2) 11/19/21 23:14 AST 54 units/L (5-40) H 11/19/21 23:14 ALT 46 units/L (7-56) 11/19/21 23:14 Alkaline Phosphatase 70 units/L (35-129) 11/19/21 23:14 Total Protein 7.0 g/dL (6.3-8.2) 11/19/21 23:14 Albumin 3.6 g/dL (3.9-5) L 11/19/21 23:14 Albumin/Globulin Ratio 1.1 % 11/19/21 23:14 Triglycerides 42 mg/dL (2-149) 11/19/21 23:14 Cholesterol 92 mg/dL (50-199) 11/19/21 23:14 LDL Cholesterol Direct 42 mg/dL (50-130) L 11/19/21 23:14 HDL Cholesterol 48 mg/dL (40-59) 11/19/21 23:14 Cholesterol/HDL Ratio 1.91 % 11/19/21 23:14 TSH 3.150 mlU/mL (0.270-4.200) 11/19/21 23:14 Pfeiffer/IV: Voiding Method Toilet Active Medications - Current Medications Current Medications: Generic Name Dose Route Start Last Admin Trade Name Freq PRN Reason Stop Dose Admin Al Hydrox/Mg Hydrox/Simethicone 30 ml 11/22/21 17:00 11/22/21 16:54 Alum-Mag Hydroxide-Simethicone 535-054-66ev/5ml Oral Liqd 30 Ml PO 30 ml Q4H PRN Administration Indigestion Alprazolam 0.5 mg 11/26/21 10:00 Alprazolam 0.5 Mg Tab PO QAM DENNY Alprazolam 0.25 mg 11/25/21 22:00 Alprazolam 0.25 Mg Tab PO QHS DENNY Atorvastatin Calcium 80 mg 11/19/21 22:00 11/24/21 21:53 Atorvastatin 40 Mg Tab PO 80 mg QHS DENNY Administration Haloperidol Lactate 5 mg 11/25/21 11:00 Haloperidol Lactate 5 Mg/1 Ml Inj IM Q6H PRN Agitation Melatonin 5 mg 11/21/21 22:35 Melatonin 5 Mg Tab PO QHS PRN Sleep Sertraline HCl 75 mg 11/26/21 10:00 Sertraline 50 Mg Tab PO QDAY DENNY Trazodone HCl 50 mg 11/21/21 22:36 Trazodone 50 Mg Tab PO QHS PRN Sleep Nutrition/Malnutrition Assess - Dietary Evaluation Nutrition/Malnutrition Findings: Nutrition Notes Start: 11/25/21 15:18 Freq: Status: Active Protocol: Document 11/25/21 15:18 CM (Rec: 11/25/21 15:22 CM [id number]) Co-Sign 11/25/21 15:18 WW Nutrition Notes Need for Assessment generated from: LOS Initial or Follow up Assessment Other Pertinent Diagnosis Vascular Dementia Current Diet Regular Diet Labs/Tests 11/25: Reviewed Pertinent Medications 11/25: Atorvasatatin Height 5 ft 11 in Weight 81.641 kg [place] Body Weight (kg) 78.18 BMI 25.1 Intake Prior to Admission Good Weight change and time frame 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 100% meals consumed during LOS . Physical assessment WNL. No nutritional concerns at this time. 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 Is patient on ventilator? No Is Patient Ambulatory and/or Out of Bed Yes REE-([facility]-ambulatory/OOB) [ 1844.102 [id number]] Calculation Used for Recommendations Wendy Alford Additional Notes Protein 1-1.2g/kg ABW; 82-98g PRO q day Fluid: 30mL/kg ABW or per MD. Nutrition Intervention Change Diet Order: Continue current diet order Goal #1 Pt to consume >75% of estimated energy/protein needs through current diet order. Revisit per MD consult or patient Sign Off request: Additional Comments Monitor need for further nutritional assistance.
--- NOTE | 2021-11-25 21:13 | Progress Note ---
Assessment and Plan - Patient Problems (1) Vascular dementia with behavioral disturbance Current Visit: Yes Status: Acute Plan to address problem: Verbal prompting, verbal redirection, benzodiazepine therapy as clinically indicated. (2) Cerebral atherosclerosis Current Visit: Yes Status: Acute Plan to address problem: Antiplatelet therapy as clinically indicated, risk factor reduction. (3) Hypertension Current Visit: Yes Status: Acute Qualifiers: Hypertension type: primary hypertension Qualified Code(s): I10 - Essential (primary) hypertension Plan to address problem: Monitor blood pressure every shift, continue medical management. (4) Hyperlipidemia Current Visit: Yes Status: Acute Plan to address problem: Statin therapy, low-cholesterol diet (5) Generalized anxiety disorder Current Visit: Yes Status: Acute Plan to address problem: Benzodiazepine therapy as clinically indicated. (6) Major depression Current Visit: Yes Status: Acute Plan to address problem: Continue medical management, cognitive behavioral therapy. (7) Advance care planning Current Visit: Yes Status: Acute Plan to address problem: Disease education done, care plan discussed, diagnoses discussed, prognosis discussed, patient is full code. Patient acknowledges understanding and agreement with care plan, +30 minutes. (8) Preventative health care Current Visit: Yes Status: Acute Plan to address problem: Patient counseled regarding outpatient follow-up with primary care physician for all age and risk factor appropriate screening test. +30 minutes. History Interval history: 66 YO Male with Vascular Dementia with Behavioral Disturbance, Cerebral Atherosclerosis, HTN, HLD, DESTIN, MDD admitted to [facility] for psychiatric stabilization. Consult placed by Dr. Pal for medical management. Patient seen and evaluated in the recreation room. No reported nursing events. Patient appears to be at baseline level of cognition and function. Hospitalist Physical - Constitutional Vitals: Temp Pulse Resp BP Pulse Ox 97.4 F L 67 18 118/73 96 11/25/21 19:04 11/25/21 19:04 11/25/21 19:04 11/25/21 19:04 11/25/21 19:04 General appearance: Present: no acute distress - EENT Eyes: Present: PERRL ENT: hearing decreased - Neck Neck: Present: supple - Respiratory Respiratory effort: normal Respiratory: bilateral: diminished - Cardiovascular Rhythm: regular Heart Sounds: Present: S1 & S2 - Extremities Extremities: no ischemia Peripheral Pulses: within normal limits - Abdominal General gastrointestinal: soft, non-tender, non-distended - Integumentary Integumentary: Present: clear, dry - Psychiatric Psychiatric: cooperative - Neurologic Neurologic: CNII-XII intact Results - Labs CBC & Chem 7: 11/19/21 23:14 11/19/21 23:14 Labs: Laboratory Last Values WBC 9.8 K/mm3 (4.5-11.0) 11/19/21 23:14 RBC 3.69 M/mm3 (3.65-5.03) 11/19/21 23:14 Hgb 12.4 gm/dl (11.8-15.2) 11/19/21 23:14 Hct 35.9 % (35.5-45.6) 11/19/21 23:14 MCV 97 fl (84-94) H 11/19/21 23:14 MCH 34 pg (28-32) H 11/19/21 23:14 MCHC 35 % (32-34) H 11/19/21 23:14 RDW 14.7 % (13.2-15.2) 11/19/21 23:14 Plt Count 190 K/mm3 (140-440) 11/19/21 23:14 Baso % (Auto) Sugar Refinery Supervisor 11/19/21 23:14 Add Manual Diff Complete 11/19/21 23:14 Total Counted 100 11/19/21 23:14 Seg Neuts % (Manual) 50.0 % (40.0-70.0) 11/19/21 23:14 Band Neutrophils % 0 % 11/19/21 23:14 Lymphocytes % (Manual) 34.0 % (13.4-35.0) 11/19/21 23:14 Reactive Lymphs % (Man) 0 % 11/19/21 23:14 Monocytes % (Manual) 12.0 % (0.0-7.3) H 11/19/21 23:14 Eosinophils % (Manual) 4.0 % (0.0-4.3) 11/19/21 23:14 Basophils % (Manual) 0 % (0.0-1.8) 11/19/21 23:14 Metamyelocytes % 0 % 11/19/21 23:14 Myelocytes % 0 % 11/19/21 23:14 Promyelocytes % 0 % 11/19/21 23:14 Blast Cells % 0 % 11/19/21 23:14 Nucleated RBC % Not Reportable 11/19/21 23:14 Seg Neutrophils # Man 4.9 K/mm3 (1.8-7.7) 11/19/21 23:14 Band Neutrophils # 0.0 K/mm3 11/19/21 23:14 Lymphocytes # (Manual) 3.3 K/mm3 (1.2-5.4) 11/19/21 23:14 Abs React Lymphs (Man) 0.0 K/mm3 11/19/21 23:14 Monocytes # (Manual) 1.2 K/mm3 (0.0-0.8) H 11/19/21 23:14 Eosinophils # (Manual) 0.4 K/mm3 (0.0-0.4) 11/19/21 23:14 Basophils # (Manual) 0.0 K/mm3 (0.0-0.1) 11/19/21 23:14 Metamyelocytes # 0.0 K/mm3 11/19/21 23:14 Myelocytes # 0.0 K/mm3 11/19/21 23:14 Promyelocytes # 0.0 K/mm3 11/19/21 23:14 Blast Cells # 0.0 K/mm3 11/19/21 23:14 WBC Morphology Not Reportable 11/19/21 23:14 Hypersegmented Neuts Not Reportable 11/19/21 23:14 Hyposegmented Neuts Not Reportable 11/19/21 23:14 Hypogranular Neuts Not Reportable 11/19/21 23:14 Smudge Cells Not Reportable 11/19/21 23:14 Toxic Granulation Not Reportable 11/19/21 23:14 Toxic Vacuolation Not Reportable 11/19/21 23:14 Dohle Bodies Not Reportable 11/19/21 23:14 Pelger-Huet Anomaly Not Reportable 11/19/21 23:14 Nemesio Rods Not Reportable 11/19/21 23:14 Platelet Estimate Consistent w auto 11/19/21 23:14 Clumped Platelets Not Reportable 11/19/21 23:14 Plt Clumps, EDTA Not Reportable 11/19/21 23:14 Large Platelets Not Reportable 11/19/21 23:14 Giant Platelets Not Reportable 11/19/21 23:14 Platelet Satelliting Not Reportable 11/19/21 23:14 Plt Morphology Comment Not Reportable 11/19/21 23:14 RBC Morphology Not Reportable 11/19/21 23:14 Dimorphic RBCs Not Reportable 11/19/21 23:14 Polychromasia Not Reportable 11/19/21 23:14 Hypochromasia Not Reportable 11/19/21 23:14 Poikilocytosis Not Reportable 11/19/21 23:14 Anisocytosis 1+ 11/19/21 23:14 Microcytosis Not Reportable 11/19/21 23:14 Macrocytosis Not Reportable 11/19/21 23:14 Spherocytes Not Reportable 11/19/21 23:14 Pappenheimer Bodies Not Reportable 11/19/21 23:14 Sickle Cells Not Reportable 11/19/21 23:14 Target Cells Few 11/19/21 23:14 Tear Drop Cells Not Reportable 11/19/21 23:14 Ovalocytes Few 11/19/21 23:14 Helmet Cells Not Reportable 11/19/21 23:14 [place] Bodies Not Reportable 11/19/21 23:14 [place] Rings Not Reportable 11/19/21 23:14 Ryan Cells Not Reportable 11/19/21 23:14 Bite Cells Not Reportable 11/19/21 23:14 Crenated Cell Not Reportable 11/19/21 23:14 Elliptocytes Not Reportable 11/19/21 23:14 Acanthocytes (Spur) Rare 11/19/21 23:14 Rouleaux Not Reportable 11/19/21 23:14 Hemoglobin C Crystals Not Reportable 11/19/21 23:14 Schistocytes Not Reportable 11/19/21 23:14 Malaria parasites Not Reportable 11/19/21 23:14 Haim Bodies Not Reportable 11/19/21 23:14 Hem Pathologist Commnt No 11/19/21 23:14 Sodium 137 mmol/L (137-145) 11/19/21 23:14 Potassium 4.2 mmol/L (3.6-5.0) 11/19/21 23:14 Chloride 102.3 mmol/L (98-107) 11/19/21 23:14 Carbon Dioxide 24 mmol/L (22-30) 11/19/21 23:14 Anion Gap 15 mmol/L 11/19/21 23:14 BUN 19 mg/dL (9-20) 11/19/21 23:14 Creatinine 0.9 mg/dL (0.8-1.3) 11/19/21 23:14 Estimated GFR > 60 ml/min 11/19/21 23:14 BUN/Creatinine Ratio 21 % 11/19/21 23:14 Glucose 103 mg/dL (75-100) H 11/19/21 23:14 Hemoglobin A1c 5.8 % (4-6) 11/19/21 23:14 Calcium 9.2 mg/dL (8.4-10.2) 11/19/21 23:14 Total Bilirubin 0.30 mg/dL (0.1-1.2) 11/19/21 23:14 AST 54 units/L (5-40) H 11/19/21 23:14 ALT 46 units/L (7-56) 11/19/21 23:14 Alkaline Phosphatase 70 units/L (35-129) 11/19/21 23:14 Total Protein 7.0 g/dL (6.3-8.2) 11/19/21 23:14 Albumin 3.6 g/dL (3.9-5) L 11/19/21 23:14 Albumin/Globulin Ratio 1.1 % 11/19/21 23:14 Triglycerides 42 mg/dL (2-149) 11/19/21 23:14 Cholesterol 92 mg/dL (50-199) 11/19/21 23:14 LDL Cholesterol Direct 42 mg/dL (50-130) L 11/19/21 23:14 HDL Cholesterol 48 mg/dL (40-59) 11/19/21 23:14 Cholesterol/HDL Ratio 1.91 % 11/19/21 23:14 TSH 3.150 mlU/mL (0.270-4.200) 11/19/21 23:14 Pfeiffer/IV: Voiding Method Toilet Active Medications - Current Medications Current Medications: Generic Name Dose Route Start Last Admin Trade Name Freq PRN Reason Stop Dose Admin Al Hydrox/Mg Hydrox/Simethicone 30 ml 11/22/21 17:00 11/22/21 16:54 Alum-Mag Hydroxide-Simethicone [id number]/5ml Oral Liqd 30 Ml PO 30 ml Q4H PRN Administration Indigestion Alprazolam 0.5 mg 11/26/21 10:00 Alprazolam 0.5 Mg Tab PO QAM DENNY Alprazolam 0.25 mg 11/25/21 22:00 Alprazolam 0.25 Mg Tab PO QHS DENNY Atorvastatin Calcium 80 mg 11/19/21 22:00 11/24/21 21:53 Atorvastatin 40 Mg Tab PO 80 mg QHS DENNY Administration Haloperidol Lactate 5 mg 11/25/21 11:00 Haloperidol Lactate 5 Mg/1 Ml Inj IM Q6H PRN Agitation Melatonin 5 mg 11/21/21 22:35 Melatonin 5 Mg Tab PO QHS PRN Sleep Sertraline HCl 75 mg 11/26/21 10:00 Sertraline 50 Mg Tab PO QDAY DENNY Trazodone HCl 50 mg 11/21/21 22:36 Trazodone 50 Mg Tab PO QHS PRN Sleep Nutrition/Malnutrition Assess - Dietary Evaluation Nutrition/Malnutrition Findings: Nutrition Notes Start: 11/25/21 15:18 Freq: Status: Active Protocol: Document 11/25/21 15:18 CM (Rec: 11/25/21 15:22 CM [id number]) Co-Sign 11/25/21 15:18 WW Nutrition Notes Need for Assessment generated from: LOS Initial or Follow up Assessment Other Pertinent Diagnosis Vascular Dementia Current Diet Regular Diet Labs/Tests 11/25: Reviewed Pertinent Medications 11/25: Atorvasatatin Height 5 ft 11 in Weight 81.641 kg [place] Body Weight (kg) 78.18 BMI 25.1 Intake Prior to Admission Good Weight change and time frame 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 100% meals consumed during LOS . Physical assessment WNL. No nutritional concerns at this time. Percent of energy/protein needs met: Regular diet provides 2289kcal / 89g PRO q day (108%/100%) Burn Absent Trauma Absent GI Symptoms None Food Allergy No Skin Integrity/Comment WNL Current % PO Good (75-100%) Minimum of two criteria No Fluid Accumulation N/A Reduced [employer] [place] Strength N/A (non-severe) Protein-Calorie Malnutrition N\A #1 Nutrition Diagnosis No nutrition diagnosis at this time Comments: No nutritional concerns at this time. Is patient on ventilator? 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 Nutrition Intervention Change Diet Order: Continue current diet order Goal #1 Pt to consume >75% of estimated energy/protein needs through current diet order. Revisit per MD consult or patient Sign Off request: Additional Comments Monitor need for further nutritional assistance.
--- NOTE | 2021-11-25 21:15 | Progress Note ---
Assessment and Plan - Patient Problems (1) Vascular dementia with behavioral disturbance Current Visit: Yes Status: Acute Plan to address problem: Verbal prompting, verbal redirection, benzodiazepine therapy as clinically indicated. (2) Cerebral atherosclerosis Current Visit: Yes Status: Acute Plan to address problem: Antiplatelet therapy as clinically indicated, risk factor reduction. (3) Hypertension Current Visit: Yes Status: Acute Qualifiers: Hypertension type: primary hypertension Qualified Code(s): I10 - Essential (primary) hypertension Plan to address problem: Monitor blood pressure every shift, continue medical management. (4) Hyperlipidemia Current Visit: Yes Status: Acute Plan to address problem: Statin therapy, low-cholesterol diet (5) Generalized anxiety disorder Current Visit: Yes Status: Acute Plan to address problem: Benzodiazepine therapy as clinically indicated. (6) Major depression Current Visit: Yes Status: Acute Plan to address problem: Continue medical management, cognitive behavioral therapy. (7) Advance care planning Current Visit: Yes Status: Acute Plan to address problem: Disease education done, care plan discussed, diagnoses discussed, prognosis discussed, patient is full code. Patient acknowledges understanding and agreement with care plan, +30 minutes. (8) Preventative health care Current Visit: Yes Status: Acute Plan to address problem: Patient counseled regarding outpatient follow-up with primary care physician for all age and risk factor appropriate screening test. +30 minutes. History Interval history: 66 YO Male with Vascular Dementia with Behavioral Disturbance, Cerebral Atherosclerosis, HTN, HLD, DESTIN, MDD admitted to [facility] for psychiatric stabilization. Consult placed by Dr. Pal for medical management. Patient seen and evaluated in the recreation room. No reported nursing events. Patient appears to be at baseline level of cognition and function. Hospitalist Physical - Constitutional Vitals: Temp Pulse Resp BP Pulse Ox 97.4 F L 67 18 118/73 96 11/25/21 19:04 11/25/21 19:04 11/25/21 19:04 11/25/21 19:04 11/25/21 19:04 General appearance: Present: no acute distress - EENT Eyes: Present: PERRL ENT: hearing decreased - Neck Neck: Present: supple - Respiratory Respiratory effort: normal Respiratory: bilateral: diminished - Cardiovascular Rhythm: regular Heart Sounds: Present: S1 & S2 - Extremities Extremities: no ischemia Peripheral Pulses: within normal limits - Abdominal General gastrointestinal: soft, non-tender, non-distended - Integumentary Integumentary: Present: clear, dry - Psychiatric Psychiatric: cooperative - Neurologic Neurologic: CNII-XII intact Results - Labs CBC & Chem 7: 11/19/21 23:14 11/19/21 23:14 Labs: Laboratory Last Values WBC 9.8 K/mm3 (4.5-11.0) 11/19/21 23:14 RBC 3.69 M/mm3 (3.65-5.03) 11/19/21 23:14 Hgb 12.4 gm/dl (11.8-15.2) 11/19/21 23:14 Hct 35.9 % (35.5-45.6) 11/19/21 23:14 MCV 97 fl (84-94) H 11/19/21 23:14 MCH 34 pg (28-32) H 11/19/21 23:14 MCHC 35 % (32-34) H 11/19/21 23:14 RDW 14.7 % (13.2-15.2) 11/19/21 23:14 Plt Count 190 K/mm3 (140-440) 11/19/21 23:14 Baso % (Auto) Aquatics Director 11/19/21 23:14 Add Manual Diff Complete 11/19/21 23:14 Total Counted 100 11/19/21 23:14 Seg Neuts % (Manual) 50.0 % (40.0-70.0) 11/19/21 23:14 Band Neutrophils % 0 % 11/19/21 23:14 Lymphocytes % (Manual) 34.0 % (13.4-35.0) 11/19/21 23:14 Reactive Lymphs % (Man) 0 % 11/19/21 23:14 Monocytes % (Manual) 12.0 % (0.0-7.3) H 11/19/21 23:14 Eosinophils % (Manual) 4.0 % (0.0-4.3) 11/19/21 23:14 Basophils % (Manual) 0 % (0.0-1.8) 11/19/21 23:14 Metamyelocytes % 0 % 11/19/21 23:14 Myelocytes % 0 % 11/19/21 23:14 Promyelocytes % 0 % 11/19/21 23:14 Blast Cells % 0 % 11/19/21 23:14 Nucleated RBC % Not Reportable 11/19/21 23:14 Seg Neutrophils # Man 4.9 K/mm3 (1.8-7.7) 11/19/21 23:14 Band Neutrophils # 0.0 K/mm3 11/19/21 23:14 Lymphocytes # (Manual) 3.3 K/mm3 (1.2-5.4) 11/19/21 23:14 Abs React Lymphs (Man) 0.0 K/mm3 11/19/21 23:14 Monocytes # (Manual) 1.2 K/mm3 (0.0-0.8) H 11/19/21 23:14 Eosinophils # (Manual) 0.4 K/mm3 (0.0-0.4) 11/19/21 23:14 Basophils # (Manual) 0.0 K/mm3 (0.0-0.1) 11/19/21 23:14 Metamyelocytes # 0.0 K/mm3 11/19/21 23:14 Myelocytes # 0.0 K/mm3 11/19/21 23:14 Promyelocytes # 0.0 K/mm3 11/19/21 23:14 Blast Cells # 0.0 K/mm3 11/19/21 23:14 WBC Morphology Not Reportable 11/19/21 23:14 Hypersegmented Neuts Not Reportable 11/19/21 23:14 Hyposegmented Neuts Not Reportable 11/19/21 23:14 Hypogranular Neuts Not Reportable 11/19/21 23:14 Smudge Cells Not Reportable 11/19/21 23:14 Toxic Granulation Not Reportable 11/19/21 23:14 Toxic Vacuolation Not Reportable 11/19/21 23:14 Dohle Bodies Not Reportable 11/19/21 23:14 Pelger-Huet Anomaly Not Reportable 11/19/21 23:14 Nemesio Rods Not Reportable 11/19/21 23:14 Platelet Estimate Consistent w auto 11/19/21 23:14 Clumped Platelets Not Reportable 11/19/21 23:14 Plt Clumps, EDTA Not Reportable 11/19/21 23:14 Large Platelets Not Reportable 11/19/21 23:14 Giant Platelets Not Reportable 11/19/21 23:14 Platelet Satelliting Not Reportable 11/19/21 23:14 Plt Morphology Comment Not Reportable 11/19/21 23:14 RBC Morphology Not Reportable 11/19/21 23:14 Dimorphic RBCs Not Reportable 11/19/21 23:14 Polychromasia Not Reportable 11/19/21 23:14 Hypochromasia Not Reportable 11/19/21 23:14 Poikilocytosis Not Reportable 11/19/21 23:14 Anisocytosis 1+ 11/19/21 23:14 Microcytosis Not Reportable 11/19/21 23:14 Macrocytosis Not Reportable 11/19/21 23:14 Spherocytes Not Reportable 11/19/21 23:14 Pappenheimer Bodies Not Reportable 11/19/21 23:14 Sickle Cells Not Reportable 11/19/21 23:14 Target Cells Few 11/19/21 23:14 Tear Drop Cells Not Reportable 11/19/21 23:14 Ovalocytes Few 11/19/21 23:14 Helmet Cells Not Reportable 11/19/21 23:14 [place] Bodies Not Reportable 11/19/21 23:14 [place] Rings Not Reportable 11/19/21 23:14 Ryan Cells Not Reportable 11/19/21 23:14 Bite Cells Not Reportable 11/19/21 23:14 Crenated Cell Not Reportable 11/19/21 23:14 Elliptocytes Not Reportable 11/19/21 23:14 Acanthocytes (Spur) Rare 11/19/21 23:14 Rouleaux Not Reportable 11/19/21 23:14 Hemoglobin C Crystals Not Reportable 11/19/21 23:14 Schistocytes Not Reportable 11/19/21 23:14 Malaria parasites Not Reportable 11/19/21 23:14 Haim Bodies Not Reportable 11/19/21 23:14 Hem Pathologist Commnt No 11/19/21 23:14 Sodium 137 mmol/L (137-145) 11/19/21 23:14 Potassium 4.2 mmol/L (3.6-5.0) 11/19/21 23:14 Chloride 102.3 mmol/L (98-107) 11/19/21 23:14 Carbon Dioxide 24 mmol/L (22-30) 11/19/21 23:14 Anion Gap 15 mmol/L 11/19/21 23:14 BUN 19 mg/dL (9-20) 11/19/21 23:14 Creatinine 0.9 mg/dL (0.8-1.3) 11/19/21 23:14 Estimated GFR > 60 ml/min 11/19/21 23:14 BUN/Creatinine Ratio 21 % 11/19/21 23:14 Glucose 103 mg/dL (75-100) H 11/19/21 23:14 Hemoglobin A1c 5.8 % (4-6) 11/19/21 23:14 Calcium 9.2 mg/dL (8.4-10.2) 11/19/21 23:14 Total Bilirubin 0.30 mg/dL (0.1-1.2) 11/19/21 23:14 AST 54 units/L (5-40) H 11/19/21 23:14 ALT 46 units/L (7-56) 11/19/21 23:14 Alkaline Phosphatase 70 units/L (35-129) 11/19/21 23:14 Total Protein 7.0 g/dL (6.3-8.2) 11/19/21 23:14 Albumin 3.6 g/dL (3.9-5) L 11/19/21 23:14 Albumin/Globulin Ratio 1.1 % 11/19/21 23:14 Triglycerides 42 mg/dL (2-149) 11/19/21 23:14 Cholesterol 92 mg/dL (50-199) 11/19/21 23:14 LDL Cholesterol Direct 42 mg/dL (50-130) L 11/19/21 23:14 HDL Cholesterol 48 mg/dL (40-59) 11/19/21 23:14 Cholesterol/HDL Ratio 1.91 % 11/19/21 23:14 TSH 3.150 mlU/mL (0.270-4.200) 11/19/21 23:14 Pfeiffer/IV: Voiding Method Toilet Active Medications - Current Medications Current Medications: Generic Name Dose Route Start Last Admin Trade Name Freq PRN Reason Stop Dose Admin Al Hydrox/Mg Hydrox/Simethicone 30 ml 11/22/21 17:00 11/22/21 16:54 Alum-Mag Hydroxide-Simethicone [id number]/5ml Oral Liqd 30 Ml PO 30 ml Q4H PRN Administration Indigestion Alprazolam 0.5 mg 11/26/21 10:00 Alprazolam 0.5 Mg Tab PO QAM DENNY Alprazolam 0.25 mg 11/25/21 22:00 11/25/21 21:14 Alprazolam 0.25 Mg Tab PO 0.25 mg QHS DENNY Administration Atorvastatin Calcium 80 mg 11/19/21 22:00 11/25/21 21:13 Atorvastatin 40 Mg Tab PO 80 mg QHS DENNY Administration Haloperidol Lactate 5 mg 11/25/21 11:00 Haloperidol Lactate 5 Mg/1 Ml Inj IM Q6H PRN Agitation Melatonin 5 mg 11/21/21 22:35 Melatonin 5 Mg Tab PO QHS PRN Sleep Sertraline HCl 75 mg 11/26/21 10:00 Sertraline 50 Mg Tab PO QDAY DENNY Trazodone HCl 50 mg 11/21/21 22:36 Trazodone 50 Mg Tab PO QHS PRN Sleep Nutrition/Malnutrition Assess - Dietary Evaluation Nutrition/Malnutrition Findings: Nutrition Notes Start: 11/25/21 15:18 Freq: Status: Active Protocol: Document 11/25/21 15:18 CM (Rec: 11/25/21 15:22 CM [id number]) Co-Sign 11/25/21 15:18 WW Nutrition Notes Need for Assessment generated from: LOS Initial or Follow up Assessment Other Pertinent Diagnosis Vascular Dementia Current Diet Regular Diet Labs/Tests 11/25: Reviewed Pertinent Medications 11/25: Atorvasatatin Height 5 ft 11 in Weight 81.641 kg [place] Body Weight (kg) 78.18 BMI 25.1 Intake Prior to Admission Good Weight change and time frame 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 100% meals consumed during LOS . Physical assessment WNL. No nutritional concerns at this time. 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 Is patient on ventilator? No Is Patient Ambulatory and/or Out of Bed Yes REE-([facility]. or-ambulatory/OOB) [ 2104.102 NUTR.MSJOOB] Calculation Used for Recommendations [facility] Additional Notes Protein 1-1.2g/kg ABW; 82-98g PRO q day Fluid: 30mL/kg ABW or per MD. Nutrition Intervention Change Diet Order: Continue current diet order Goal #1 Pt to consume >75% of estimated energy/protein needs through current diet order. Revisit per MD consult or patient Sign Off request: Additional Comments Monitor need for further nutritional assistance.
[2021-11-25] MEDS ORDERED: ALPRAZolam 0.25 MG TAB PO SCH (22:00)
[2021-11-26] MEDS: SERTRALINE 50 MG TAB PO SCH (09:02)
--- NOTE | 2021-11-26 09:35 | Progress Note ---
Subjective Date of service: 11/26/21 Principal diagnosis: vascular dementia w/ behavioral disturbance, mood disorder unspecified Subjective Comment: 11/26: Patient was seen today. Patient was oriented x1 and cooperative throughout interview. Patient reports feeling "still alive." Patient reports normal sleep and normal appetite. Patient reports "I'm ready to get out." Patient denies SI HI AVH. After interview patient was found beating on unit doors. Patient was de- escalated and redirected. 11/25: Patient was seen today. Patient was in bed but responsive to voice. Patient was oriented x1 and cooperative throughout the interview. Patient reports he's feeling "alright," and slept okay and has good appetite. Patient patient denies depressive sx, SI HI or hallucinations. Nursing notes report patient has had increasing irritability since decreasing xanax to .25 BID on 11/22. In the afternoon, patient was heard beating on the unit's doors. Patient was saying "I don't want to be here," and "just let me go." This provider talked with patient and discussed expectations and concerns with his behavior on the unit. 11/24: Patient was seen today. Patient was alert and oriented x3 and cooperative throughout the interview. When asked how patient feels, patient reports "I'm alive." Patient denies depressive symptoms, denies suicidal ideation, homicidal ideation, denies hallucinations. Patient reports good sleep and appetite. Patient reports "I just want to get out of here." 11/23: Patient was seen today. Patient was alert and oriented x3 and cooperative throughout the interview. Patient reports feeling "same as usual." Patient continues to deny depressed mood and suicidal ideation. When asked if patient endorses HI patient reports "not yet," and laughs. Patient reports "I need a joint and a shot of liquor." Patient reports okay sleep and good appetite. Patient denies hallucinations. Patient reports interest in checking on how his sister is doing. 11/22: Patient was seen today. Patient was alert and oriented x3 and cooperative throughout the interview. Patient reports feeling "same as usual." Patient denies depressed mood and suicidal ideation "that's the last thing I want to do." Patient denies irritability and anxiety. Patient reports he needs a beer. Patient reports okay sleep and good appetite. Patient denies HI and hallucinations. 11/21: Patient was seen today. Patient was alert and oriented x3 and cooperative throughout the interview. When asked how he feels, patient responds "I'm here." Patient denies depressive sx. Patient reports "I need to get out of here." When asked where he wants to go, patient reports "anywhere, I'm ready to go." Patient denies irritability or other depressive sx. Patient denies anxiety. Patient denies suicidal ideation, homicidal ideation, and hallucinations. Patient reports good sleep and good appetite. 11/20: Patient was seen today. Patient was alert and oriented x3 and cooperative throughout the interview. Patient reports he feels "alright." Patient denies irritability or other depressive sx. Patient denies anxiety. Patient denies suicidal ideation, homicidal ideation, and hallucinations. Patient reports he slept okay and has good appetite. Patient denies any complaints. 11/19: The patient was seen today. He was first seen in the ER where he presented for severe agitation. During my evaluation today, the patient is calm and cooperative, but easily irritable. I ask him if he felt calm, he said "yea for now, long as nobody messing with me." The patient denies hallucinations or SI/HI. MENTAL STATUS EXAMINATION General Appearance and Behavior: Age appropriate, wearing appropriate clothes, cooperative Cooperation: cooperative Psychomotor Behavior: Psychomotor normal Mood: "alright," Affect and affective range: irritable Thought Process: Goal oriented Thought Content: Reality based Speech: Normal volume, Regular rate and rhythm Suicidal Ideation: Denies Homicidal Ideation: Denies Hallucination: Denies Delusions: Denies Impulse Control: Normal Insight and Judgment: Limited Memory: Fair Attention: Attentive Orientation: a/o x 1 ASSESSMENT Vascular dementia with behavioral disturbance Mood disorder, unspecified Treatment Plan Patient admitted for inpatient psychiatric evaluation, medication adjustment and close monitoring The patient's behavior, mood, sleep and appetite will be closely monitored. Patient enrolled in individual and group therapeutic sessions and encouraged to attend. Patient provided with a safe and structured environment. Patient's physical health needs will be addressed by the Hospitalist. Hospitalist Consulted Labs including CBC, CMP, Lipid profile and Hemoglobin A1C levels ordered for baseline reference Social Assessment will be completed and the Warp Tying Machine Tender will work with patient and family to ensure a suitable and safe disposition Medication adjustment will be made as clinically indicated - Maintain Zoloft 75 mg qd - Increase xanax .5 mg BID - Added nicotine patch 7 mg qd Usual Wellness Moravian/Preservation - Trazodone 50 mg po QHS PRN for insomnia - Melatonin 5 mg po QHS to promote circadian rhythm The patient agreed on the treatment plan, understood the risk, benefit, alternative treatment, potential consequence of no treatment, and gave informed consent. Estimated days: 3 Post hospital care: primary care provider, psychiatric provider Case staffed with Dr. Duarte Medications and Allergies Allergies Allergy/AdvReac Type Severity Reaction Status Date / Time gadoteridol [From Prohance] Allergy Unknown Verified 11/16/21 18:43 Home Medications Medication Instructions Recorded Confirmed Last Taken Type ALPRAZolam [Xanax TAB] 0.5 mg PO BID 11/19/21 11/19/21 Unknown History Atorvastatin [Lipitor Tab] 80 mg PO QDAY 11/19/21 11/19/21 Unknown History Sertraline [Zoloft] 25 mg PO QDAY 11/19/21 11/19/21 Unknown History Active Meds: Active Medications Al Hydrox/Mg Hydrox/Simethicone (Alum-Mag Hydroxide-Simethicone [id number]/5ml Oral Liqd 30 Ml) 30 ml PO Q4H PRN PRN Reason: Indigestion Last Admin: 11/22/21 16:54 Dose: 30 ml Alprazolam (Alprazolam 0.5 Mg Tab) 0.5 mg PO [facility] Last Admin: 11/26/21 09:03 Dose: 0.5 mg Alprazolam (Alprazolam 0.25 Mg Tab) 0.25 mg PO QHS [facility] Last Admin: 11/25/21 21:14 Dose: 0.25 mg Atorvastatin Calcium (Atorvastatin 40 Mg Tab) 80 mg PO QHS [facility] Last Admin: 11/25/21 21:13 Dose: 80 mg Haloperidol Lactate (Haloperidol Lactate 5 Mg/1 Ml Inj) 5 mg IM Q6H PRN PRN Reason: Agitation Melatonin (Melatonin 5 Mg Tab) 5 mg PO QHS PRN PRN Reason: Sleep Sertraline HCl (Sertraline 50 Mg Tab) 75 mg PO QDAY [facility] Last Admin: 11/26/21 09:02 Dose: 75 mg Trazodone HCl (Trazodone 50 Mg Tab) 50 mg PO QHS PRN PRN Reason: Sleep Results - Results Labs/Vitals: Laboratory Last Values WBC 9.8 K/mm3 (4.5-11.0) 11/19/21 23:14 RBC 3.69 M/mm3 (3.65-5.03) 11/19/21 23:14 Hgb 12.4 gm/dl (11.8-15.2) 11/19/21 23:14 Hct 35.9 % (35.5-45.6) 11/19/21 23:14 MCV 97 fl (84-94) H 11/19/21 23:14 MCH 34 pg (28-32) H 11/19/21 23:14 MCHC 35 % (32-34) H 11/19/21 23:14 RDW 14.7 % (13.2-15.2) 11/19/21 23:14 Plt Count 190 K/mm3 (140-440) 11/19/21 23:14 Baso % (Auto) Regulatory Administrator 11/19/21 23:14 Add Manual Diff Complete 11/19/21 23:14 Total Counted 100 11/19/21 23:14 Seg Neuts % (Manual) 50.0 % (40.0-70.0) 11/19/21 23:14 Band Neutrophils % 0 % 11/19/21 23:14 Lymphocytes % (Manual) 34.0 % (13.4-35.0) 11/19/21 23:14 Reactive Lymphs % (Man) 0 % 11/19/21 23:14 Monocytes % (Manual) 12.0 % (0.0-7.3) H 11/19/21 23:14 Eosinophils % (Manual) 4.0 % (0.0-4.3) 11/19/21 23:14 Basophils % (Manual) 0 % (0.0-1.8) 11/19/21 23:14 Metamyelocytes % 0 % 11/19/21 23:14 Myelocytes % 0 % 11/19/21 23:14 Promyelocytes % 0 % 11/19/21 23:14 Blast Cells % 0 % 11/19/21 23:14 Nucleated RBC % Not Reportable 11/19/21 23:14 Seg Neutrophils # Man 4.9 K/mm3 (1.8-7.7) 11/19/21 23:14 Band Neutrophils # 0.0 K/mm3 11/19/21 23:14 Lymphocytes # (Manual) 3.3 K/mm3 (1.2-5.4) 11/19/21 23:14 Abs React Lymphs (Man) 0.0 K/mm3 11/19/21 23:14 Monocytes # (Manual) 1.2 K/mm3 (0.0-0.8) H 11/19/21 23:14 Eosinophils # (Manual) 0.4 K/mm3 (0.0-0.4) 11/19/21 23:14 Basophils # (Manual) 0.0 K/mm3 (0.0-0.1) 11/19/21 23:14 Metamyelocytes # 0.0 K/mm3 11/19/21 23:14 Myelocytes # 0.0 K/mm3 11/19/21 23:14 Promyelocytes # 0.0 K/mm3 11/19/21 23:14 Blast Cells # 0.0 K/mm3 11/19/21 23:14 WBC Morphology Not Reportable 11/19/21 23:14 Hypersegmented Neuts Not Reportable 11/19/21 23:14 Hyposegmented Neuts Not Reportable 11/19/21 23:14 Hypogranular Neuts Not Reportable 11/19/21 23:14 Smudge Cells Not Reportable 11/19/21 23:14 Toxic Granulation Not Reportable 11/19/21 23:14 Toxic Vacuolation Not Reportable 11/19/21 23:14 Dohle Bodies Not Reportable 11/19/21 23:14 Pelger-Huet Anomaly Not Reportable 11/19/21 23:14 Nemesio Rods Not Reportable 11/19/21 23:14 Platelet Estimate Consistent w auto 11/19/21 23:14 Clumped Platelets Not Reportable 11/19/21 23:14 Plt Clumps, EDTA Not Reportable 11/19/21 23:14 Large Platelets Not Reportable 11/19/21 23:14 Giant Platelets Not Reportable 11/19/21 23:14 Platelet Satelliting Not Reportable 11/19/21 23:14 Plt Morphology Comment Not Reportable 11/19/21 23:14 RBC Morphology Not Reportable 11/19/21 23:14 Dimorphic RBCs Not Reportable 11/19/21 23:14 Polychromasia Not Reportable 11/19/21 23:14 Hypochromasia Not Reportable 11/19/21 23:14 Poikilocytosis Not Reportable 11/19/21 23:14 Anisocytosis 1+ 11/19/21 23:14 Microcytosis Not Reportable 11/19/21 23:14 Macrocytosis Not Reportable 11/19/21 23:14 Spherocytes Not Reportable 11/19/21 23:14 Pappenheimer Bodies Not Reportable 11/19/21 23:14 Sickle Cells Not Reportable 11/19/21 23:14 Target Cells Few 11/19/21 23:14 Tear Drop Cells Not Reportable 11/19/21 23:14 Ovalocytes Few 11/19/21 23:14 Helmet Cells Not Reportable 11/19/21 23:14 [place] Bodies Not Reportable 11/19/21 23:14 [place] Rings Not Reportable 11/19/21 23:14 [place] Cells Not Reportable 11/19/21 23:14 Bite Cells Not Reportable 11/19/21 23:14 Crenated Cell Not Reportable 11/19/21 23:14 Elliptocytes Not Reportable 11/19/21 23:14 Acanthocytes (Spur) Rare 11/19/21 23:14 Rouleaux Not Reportable 11/19/21 23:14 Hemoglobin C Crystals Not Reportable 11/19/21 23:14 Schistocytes Not Reportable 11/19/21 23:14 Malaria parasites Not Reportable 11/19/21 23:14 Haim Bodies Not Reportable 11/19/21 23:14 Hem Pathologist Commnt No 11/19/21 23:14 Sodium 137 mmol/L (137-145) 11/19/21 23:14 Potassium 4.2 mmol/L (3.6-5.0) 11/19/21 23:14 Chloride 102.3 mmol/L (98-107) 11/19/21 23:14 Carbon Dioxide 24 mmol/L (22-30) 11/19/21 23:14 Anion Gap 15 mmol/L 11/19/21 23:14 BUN 19 mg/dL (9-20) 11/19/21 23:14 Creatinine 0.9 mg/dL (0.8-1.3) 11/19/21 23:14 Estimated GFR > 60 ml/min 11/19/21 23:14 BUN/Creatinine Ratio 21 % 11/19/21 23:14 Glucose 103 mg/dL (75-100) H 11/19/21 23:14 Hemoglobin A1c 5.8 % (4-6) 11/19/21 23:14 Calcium 9.2 mg/dL (8.4-10.2) 11/19/21 23:14 Total Bilirubin 0.30 mg/dL (0.1-1.2) 11/19/21 23:14 AST 54 units/L (5-40) H 11/19/21 23:14 ALT 46 units/L (7-56) 11/19/21 23:14 Alkaline Phosphatase 70 units/L (35-129) 11/19/21 23:14 Total Protein 7.0 g/dL (6.3-8.2) 11/19/21 23:14 Albumin 3.6 g/dL (3.9-5) L 11/19/21 23:14 Albumin/Globulin Ratio 1.1 % 11/19/21 23:14 Triglycerides 42 mg/dL (2-149) 11/19/21 23:14 Cholesterol 92 mg/dL (50-199) 11/19/21 23:14 LDL Cholesterol Direct 42 mg/dL (50-130) L 11/19/21 23:14 HDL Cholesterol 48 mg/dL (40-59) 11/19/21 23:14 Cholesterol/HDL Ratio 1.91 % 11/19/21 23:14 TSH 3.150 mlU/mL (0.270-4.200) 11/19/21 23:14 Last Vital Signs Temp 97.7 F 11/26/21 06:01 Pulse 65 11/26/21 06:01 Resp 18 11/26/21 06:01 BP 145/80 11/26/21 06:01 Pulse Ox 97 11/26/21 06:01
[2021-11-26] MEDS ORDERED: ALPRAZolam 0.5 MG TAB PO SCH (10:00)
[2021-11-26] MEDS: NICOTINE 7 MG/24 HR PATCH TD SCH (20:37)
[2021-11-26] MEDS: ALPRAZolam 0.5 MG TAB PO SCH (21:10)
[2021-11-27] MEDS: ALPRAZolam 0.5 MG TAB PO SCH ×2 (09:31→21:11)
[2021-11-27] MEDS: SERTRALINE 50 MG TAB PO SCH (09:32)
--- NOTE | 2021-11-27 10:03 | Progress Note ---
Subjective Date of service: 11/27/21 Principal diagnosis: vascular dementia w/ behavioral disturbance, mood disorder unspecified Subjective Comment: The patient was seen today. He jokingly says "I'm alive" when asking how he felt. He says he slept well. The patient denies SI/HI or hallucinations. He is clear from psych and awaiting placement to ensure continuity of his mental wellness. REVIEW OF SYSTEMS Constitutional: Negative for weight loss ENT: Negative for stridor Respiratory: Negative for cough or hemoptysis All other systems reviewed and are negative MENTAL STATUS EXAMINATION General Appearance and Behavior: Age appropriate, wearing appropriate clothes, cooperative Cooperation: cooperative Psychomotor Behavior: Psychomotor normal Mood: "I'm alive." Affect and affective range: Euthymic Thought Process: Goal oriented Thought Content: Reality based Speech: Normal volume, Regular rate and rhythm Suicidal Ideation: Denies Homicidal Ideation: Denies Hallucination: Denies Delusions: Denies Impulse Control: Normal Insight and Judgment: Limited Memory: Fair Attention: Attentive Orientation: a/o x 3 ASSESSMENT Vascular dementia with behavioral disturbance Mood disorder, unspecified Treatment Plan Patient admitted for inpatient psychiatric evaluation, medication adjustment and close monitoring The patient's behavior, mood, sleep and appetite will be closely monitored. Patient enrolled in individual and group therapeutic sessions and encouraged to attend. Patient provided with a safe and structured environment. Patient's physical health needs will be addressed by the Hospitalist. Hospitalist Consulted Labs including CBC, CMP, Lipid profile and Hemoglobin A1C levels ordered for baseline reference Social Assessment will be completed and the Training And Development Rep will work with patient and family to ensure a suitable and safe disposition Medication adjustment will be made as clinically indicated Continue current regimen Usual Wellness Jewish/Preservation - Trazodone 50 mg po QHS PRN for insomnia - Melatonin 5 mg po QHS to promote circadian rhythm The patient agreed on the treatment plan, understood the risk, benefit, alternative treatment, potential consequence of no treatment, and gave informed consent. Estimated days: 3 Post hospital care: primary care provider, psychiatric provider Case staffed with Dr. Duarte Medications and Allergies Allergies Allergy/AdvReac Type Severity Reaction Status Date / Time gadoteridol [From Prohance] Allergy Unknown Verified 11/16/21 18:43 Home Medications Medication Instructions Recorded Confirmed Last Taken Type ALPRAZolam [Xanax TAB] 0.5 mg PO BID 11/19/21 11/19/21 Unknown History Atorvastatin [Lipitor Tab] 80 mg PO QDAY 11/19/21 11/19/21 Unknown History Sertraline [Zoloft] 25 mg PO QDAY 11/19/21 11/19/21 Unknown History Active Meds: Active Medications Al Hydrox/Mg Hydrox/Simethicone (Alum-Mag Hydroxide-Simethicone [phone]/5ml Oral Liqd 30 Ml) 30 ml PO Q4H PRN PRN Reason: Indigestion Last Admin: 11/22/21 16:54 Dose: 30 ml Alprazolam (Alprazolam 0.5 Mg Tab) 0.5 mg PO BID [facility] Last Admin: 11/27/21 09:31 Dose: 0.5 mg Atorvastatin Calcium (Atorvastatin 40 Mg Tab) 80 mg PO QHS [facility] Last Admin: 11/26/21 21:10 Dose: 80 mg Haloperidol Lactate (Haloperidol Lactate 5 Mg/1 Ml Inj) 5 mg IM Q6H PRN PRN Reason: Agitation Melatonin (Melatonin 5 Mg Tab) 5 mg PO QHS PRN PRN Reason: Sleep Nicotine (Nicotine 7 Mg/24 Hr Patch) 7 mg TD QDAY [facility] Last Admin: 11/26/21 20:37 Dose: Not Given Sertraline HCl (Sertraline 50 Mg Tab) 75 mg PO QDAY [facility] Last Admin: 11/27/21 09:32 Dose: 75 mg Trazodone HCl (Trazodone 50 Mg Tab) 50 mg PO QHS PRN PRN Reason: Sleep Results - Results Labs/Vitals: Laboratory Last Values WBC 9.8 K/mm3 (4.5-11.0) 11/19/21 23:14 RBC 3.69 M/mm3 (3.65-5.03) 11/19/21 23:14 Hgb 12.4 gm/dl (11.8-15.2) 11/19/21 23:14 Hct 35.9 % (35.5-45.6) 11/19/21 23:14 MCV 97 fl (84-94) H 11/19/21 23:14 MCH 34 pg (28-32) H 11/19/21 23:14 MCHC 35 % (32-34) H 11/19/21 23:14 RDW 14.7 % (13.2-15.2) 11/19/21 23:14 Plt Count 190 K/mm3 (140-440) 11/19/21 23:14 Baso % (Auto) Heating And Cooling Technician 11/19/21 23:14 Add Manual Diff Complete 11/19/21 23:14 Total Counted 100 11/19/21 23:14 Seg Neuts % (Manual) 50.0 % (40.0-70.0) 11/19/21 23:14 Band Neutrophils % 0 % 11/19/21 23:14 Lymphocytes % (Manual) 34.0 % (13.4-35.0) 11/19/21 23:14 Reactive Lymphs % (Man) 0 % 11/19/21 23:14 Monocytes % (Manual) 12.0 % (0.0-7.3) H 11/19/21 23:14 Eosinophils % (Manual) 4.0 % (0.0-4.3) 11/19/21 23:14 Basophils % (Manual) 0 % (0.0-1.8) 11/19/21 23:14 Metamyelocytes % 0 % 11/19/21 23:14 Myelocytes % 0 % 11/19/21 23:14 Promyelocytes % 0 % 11/19/21 23:14 Blast Cells % 0 % 11/19/21 23:14 Nucleated RBC % Not Reportable 11/19/21 23:14 Seg Neutrophils # Man 4.9 K/mm3 (1.8-7.7) 11/19/21 23:14 Band Neutrophils # 0.0 K/mm3 11/19/21 23:14 Lymphocytes # (Manual) 3.3 K/mm3 (1.2-5.4) 11/19/21 23:14 Abs React Lymphs (Man) 0.0 K/mm3 11/19/21 23:14 Monocytes # (Manual) 1.2 K/mm3 (0.0-0.8) H 11/19/21 23:14 Eosinophils # (Manual) 0.4 K/mm3 (0.0-0.4) 11/19/21 23:14 Basophils # (Manual) 0.0 K/mm3 (0.0-0.1) 11/19/21 23:14 Metamyelocytes # 0.0 K/mm3 11/19/21 23:14 Myelocytes # 0.0 K/mm3 11/19/21 23:14 Promyelocytes # 0.0 K/mm3 11/19/21 23:14 Blast Cells # 0.0 K/mm3 11/19/21 23:14 WBC Morphology Not Reportable 11/19/21 23:14 Hypersegmented Neuts Not Reportable 11/19/21 23:14 Hyposegmented Neuts Not Reportable 11/19/21 23:14 Hypogranular Neuts Not Reportable 11/19/21 23:14 Smudge Cells Not Reportable 11/19/21 23:14 Toxic Granulation Not Reportable 11/19/21 23:14 Toxic Vacuolation Not Reportable 11/19/21 23:14 Dohle Bodies Not Reportable 11/19/21 23:14 Pelger-Huet Anomaly Not Reportable 11/19/21 23:14 Nemesio Rods Not Reportable 11/19/21 23:14 Platelet Estimate Consistent w auto 11/19/21 23:14 Clumped Platelets Not Reportable 11/19/21 23:14 Plt Clumps, EDTA Not Reportable 11/19/21 23:14 Large Platelets Not Reportable 11/19/21 23:14 Giant Platelets Not Reportable 11/19/21 23:14 Platelet Satelliting Not Reportable 11/19/21 23:14 Plt Morphology Comment Not Reportable 11/19/21 23:14 RBC Morphology Not Reportable 11/19/21 23:14 Dimorphic RBCs Not Reportable 11/19/21 23:14 Polychromasia Not Reportable 11/19/21 23:14 Hypochromasia Not Reportable 11/19/21 23:14 Poikilocytosis Not Reportable 11/19/21 23:14 Anisocytosis 1+ 11/19/21 23:14 Microcytosis Not Reportable 11/19/21 23:14 Macrocytosis Not Reportable 11/19/21 23:14 Spherocytes Not Reportable 11/19/21 23:14 Pappenheimer Bodies Not Reportable 11/19/21 23:14 Sickle Cells Not Reportable 11/19/21 23:14 Target Cells Few 11/19/21 23:14 Tear Drop Cells Not Reportable 11/19/21 23:14 Ovalocytes Few 11/19/21 23:14 Helmet Cells Not Reportable 11/19/21 23:14 [place] Bodies Not Reportable 11/19/21 23:14 [place] Rings Not Reportable 11/19/21 23:14 [place] Cells Not Reportable 11/19/21 23:14 Bite Cells Not Reportable 11/19/21 23:14 Crenated Cell Not Reportable 11/19/21 23:14 Elliptocytes Not Reportable 11/19/21 23:14 Acanthocytes (Spur) Rare 11/19/21 23:14 Rouleaux Not Reportable 11/19/21 23:14 Hemoglobin C Crystals Not Reportable 11/19/21 23:14 Schistocytes Not Reportable 11/19/21 23:14 Malaria parasites Not Reportable 11/19/21 23:14 Haim Bodies Not Reportable 11/19/21 23:14 Hem Pathologist Commnt No 11/19/21 23:14 Sodium 137 mmol/L (137-145) 11/19/21 23:14 Potassium 4.2 mmol/L (3.6-5.0) 11/19/21 23:14 Chloride 102.3 mmol/L (98-107) 11/19/21 23:14 Carbon Dioxide 24 mmol/L (22-30) 11/19/21 23:14 Anion Gap 15 mmol/L 11/19/21 23:14 BUN 19 mg/dL (9-20) 11/19/21 23:14 Creatinine 0.9 mg/dL (0.8-1.3) 11/19/21 23:14 Estimated GFR > 60 ml/min 11/19/21 23:14 BUN/Creatinine Ratio 21 % 11/19/21 23:14 Glucose 103 mg/dL (75-100) H 11/19/21 23:14 Hemoglobin A1c 5.8 % (4-6) 11/19/21 23:14 Calcium 9.2 mg/dL (8.4-10.2) 11/19/21 23:14 Total Bilirubin 0.30 mg/dL (0.1-1.2) 11/19/21 23:14 AST 54 units/L (5-40) H 11/19/21 23:14 ALT 46 units/L (7-56) 11/19/21 23:14 Alkaline Phosphatase 70 units/L (35-129) 11/19/21 23:14 Total Protein 7.0 g/dL (6.3-8.2) 11/19/21 23:14 Albumin 3.6 g/dL (3.9-5) L 11/19/21 23:14 Albumin/Globulin Ratio 1.1 % 11/19/21 23:14 Triglycerides 42 mg/dL (2-149) 11/19/21 23:14 Cholesterol 92 mg/dL (50-199) 11/19/21 23:14 LDL Cholesterol Direct 42 mg/dL (50-130) L 11/19/21 23:14 HDL Cholesterol 48 mg/dL (40-59) 11/19/21 23:14 Cholesterol/HDL Ratio 1.91 % 11/19/21 23:14 TSH 3.150 mlU/mL (0.270-4.200) 11/19/21 23:14 Last Vital Signs Temp 98.1 F 11/26/21 19:35 Pulse 64 11/26/21 19:35 Resp 18 11/26/21 19:35 BP 128/73 11/26/21 19:35 Pulse Ox 97 11/26/21 19:35
[2021-11-27] MEDS: NICOTINE 7 MG/24 HR PATCH TD SCH (11:45)
--- NOTE | 2021-11-28 08:13 | Progress Note ---
Assessment and Plan Assessment and plan: 66 YO Male with Vascular Dementia with Behavioral Disturbance, Cerebral Atherosclerosis, HTN, HLD, DESTIN, MDD admitted to [facility] for psychiatric stabilization. Consult placed by Dr. Pal for medical management. Patient seen and evaluated in the recreation room. No reported nursing events. Patient appears to be at baseline level of cognition and function. - Patient Problems (1) Vascular dementia with behavioral disturbance Current Visit: Yes Status: Acute Plan to address problem: Verbal prompting, verbal redirection, benzodiazepine therapy as clinically indicated. (2) Cerebral atherosclerosis Current Visit: Yes Status: Acute Plan to address problem: Antiplatelet therapy as clinically indicated, risk factor reduction. (3) Hypertension Current Visit: Yes Status: Acute Qualifiers: Hypertension type: primary hypertension Qualified Code(s): I10 - Essential (primary) hypertension Plan to address problem: Monitor blood pressure every shift, continue medical management. Continue supportive care. (4) Hyperlipidemia Current Visit: Yes Status: Acute Plan to address problem: Statin therapy, low-cholesterol diet (5) Generalized anxiety disorder Current Visit: Yes Status: Acute Plan to address problem: Benzodiazepine therapy as clinically indicated. (6) Major depression/ mood disorder/ Current Visit: Yes Status: Acute Plan to address problem: Continue medical management, cognitive behavioral therapy. (7) Advance care planning Current Visit: Yes Status: Acute Plan to address problem: Disease education done, care plan discussed, diagnoses discussed, prognosis discussed, patient is full code. Patient acknowledges understanding and agree ment with care plan, +30 minutes. (8) Preventative health care Current Visit: Yes Status: Acute Plan to address problem: Patient counseled regarding outpatient follow-up with primary care physician for all age and risk factor appropriate screening test. +30 minutes. History Interval history: Patient seen and examined no acute distress. States he would like to go home Tuesday he will feel better if it was at home. Hospitalist Physical - Physical exam Narrative exam: VITAL SIGNS: Reviewed. GENERAL: The patient appears normally developed, sitting up in a wheelchair in the day room having breakfast. Vital signs as documented. HEAD: No signs of head trauma. EYES: Pupils are equal. Extraocular motions intact. EARS: Hearing grossly intact. MOUTH: Oropharynx is normal. NECK: No adenopathy, no JVD. CHEST: Chest with clear breath sounds bilaterally. No wheezes, rales, or rhonchi. CARDIAC: Regular rate and rhythm. S1 and S2, without murmurs, gallops, or rubs. VASCULAR: No Edema. Peripheral pulses normal and equal in all extremities. ABDOMEN: Soft, non tender and non distended. No rebound or guarding, and no masses palpated. Bowel Sounds normal. MUSCULOSKELETAL: Good range of motion of all major joints. Extremities without clubbing, cyanosis or edema. NEUROLOGIC EXAM: Alert and oriented x 3 No focal sensory or strength deficits. Speech normal. Follows commands. PSYCHIATRIC: Mood normal. SKIN: detail exam as documented in skin assessment - Constitutional Vitals: Temp Pulse Resp BP Pulse Ox 97.6 F 90 16 118/76 97 11/27/21 17:54 11/27/21 17:54 11/27/21 17:54 11/27/21 17:54 11/27/21 17:54 General appearance: Present: no acute distress Results - Labs CBC & Chem 7: 11/19/21 23:14 11/19/21 23:14 Labs: Laboratory Last Values WBC 9.8 K/mm3 (4.5-11.0) 11/19/21 23:14 RBC 3.69 M/mm3 (3.65-5.03) 11/19/21 23:14 Hgb 12.4 gm/dl (11.8-15.2) 11/19/21 23:14 Hct 35.9 % (35.5-45.6) 11/19/21 23:14 MCV 97 fl (84-94) H 11/19/21 23:14 MCH 34 pg (28-32) H 11/19/21 23:14 MCHC 35 % (32-34) H 11/19/21 23:14 RDW 14.7 % (13.2-15.2) 11/19/21 23:14 Plt Count 190 K/mm3 (140-440) 11/19/21 23:14 Baso % (Auto) Rn Shift Mgr 11/19/21 23:14 Add Manual Diff Complete 11/19/21 23:14 Total Counted 100 11/19/21 23:14 Seg Neuts % (Manual) 50.0 % (40.0-70.0) 11/19/21 23:14 Band Neutrophils % 0 % 11/19/21 23:14 Lymphocytes % (Manual) 34.0 % (13.4-35.0) 11/19/21 23:14 Reactive Lymphs % (Man) 0 % 11/19/21 23:14 Monocytes % (Manual) 12.0 % (0.0-7.3) H 11/19/21 23:14 Eosinophils % (Manual) 4.0 % (0.0-4.3) 11/19/21 23:14 Basophils % (Manual) 0 % (0.0-1.8) 11/19/21 23:14 Metamyelocytes % 0 % 11/19/21 23:14 Myelocytes % 0 % 11/19/21 23:14 Promyelocytes % 0 % 11/19/21 23:14 Blast Cells % 0 % 11/19/21 23:14 Nucleated RBC % Not Reportable 11/19/21 23:14 Seg Neutrophils # Man 4.9 K/mm3 (1.8-7.7) 11/19/21 23:14 Band Neutrophils # 0.0 K/mm3 11/19/21 23:14 Lymphocytes # (Manual) 3.3 K/mm3 (1.2-5.4) 11/19/21 23:14 Abs React Lymphs (Man) 0.0 K/mm3 11/19/21 23:14 Monocytes # (Manual) 1.2 K/mm3 (0.0-0.8) H 11/19/21 23:14 Eosinophils # (Manual) 0.4 K/mm3 (0.0-0.4) 11/19/21 23:14 Basophils # (Manual) 0.0 K/mm3 (0.0-0.1) 11/19/21 23:14 Metamyelocytes # 0.0 K/mm3 11/19/21 23:14 Myelocytes # 0.0 K/mm3 11/19/21 23:14 Promyelocytes # 0.0 K/mm3 11/19/21 23:14 Blast Cells # 0.0 K/mm3 11/19/21 23:14 WBC Morphology Not Reportable 11/19/21 23:14 Hypersegmented Neuts Not Reportable 11/19/21 23:14 Hyposegmented Neuts Not Reportable 11/19/21 23:14 Hypogranular Neuts Not Reportable 11/19/21 23:14 Smudge Cells Not Reportable 11/19/21 23:14 Toxic Granulation Not Reportable 11/19/21 23:14 Toxic Vacuolation Not Reportable 11/19/21 23:14 Dohle Bodies Not Reportable 11/19/21 23:14 Pelger-Huet Anomaly Not Reportable 11/19/21 23:14 Nemesio Rods Not Reportable 11/19/21 23:14 Platelet Estimate Consistent w auto 11/19/21 23:14 Clumped Platelets Not Reportable 11/19/21 23:14 Plt Clumps, EDTA Not Reportable 11/19/21 23:14 Large Platelets Not Reportable 11/19/21 23:14 Giant Platelets Not Reportable 11/19/21 23:14 Platelet Satelliting Not Reportable 11/19/21 23:14 Plt Morphology Comment Not Reportable 11/19/21 23:14 RBC Morphology Not Reportable 11/19/21 23:14 Dimorphic RBCs Not Reportable 11/19/21 23:14 Polychromasia Not Reportable 11/19/21 23:14 Hypochromasia Not Reportable 11/19/21 23:14 Poikilocytosis Not Reportable 11/19/21 23:14 Anisocytosis 1+ 11/19/21 23:14 Microcytosis Not Reportable 11/19/21 23:14 Macrocytosis Not Reportable 11/19/21 23:14 Spherocytes Not Reportable 11/19/21 23:14 Pappenheimer Bodies Not Reportable 11/19/21 23:14 Sickle Cells Not Reportable 11/19/21 23:14 Target Cells Few 11/19/21 23:14 Tear Drop Cells Not Reportable 11/19/21 23:14 Ovalocytes Few 11/19/21 23:14 Helmet Cells Not Reportable 11/19/21 23:14 Burgos-[place] Bodies Not Reportable 11/19/21 23:14 [place] Rings Not Reportable 11/19/21 23:14 Ryan Cells Not Reportable 11/19/21 23:14 Bite Cells Not Reportable 11/19/21 23:14 Crenated Cell Not Reportable 11/19/21 23:14 Elliptocytes Not Reportable 11/19/21 23:14 Acanthocytes (Spur) Rare 11/19/21 23:14 Rouleaux Not Reportable 11/19/21 23:14 Hemoglobin C Crystals Not Reportable 11/19/21 23:14 Schistocytes Not Reportable 11/19/21 23:14 Malaria parasites Not Reportable 11/19/21 23:14 Haim Bodies Not Reportable 11/19/21 23:14 Hem Pathologist Commnt No 11/19/21 23:14 Sodium 137 mmol/L (137-145) 11/19/21 23:14 Potassium 4.2 mmol/L (3.6-5.0) 11/19/21 23:14 Chloride 102.3 mmol/L (98-107) 11/19/21 23:14 Carbon Dioxide 24 mmol/L (22-30) 11/19/21 23:14 Anion Gap 15 mmol/L 11/19/21 23:14 BUN 19 mg/dL (9-20) 11/19/21 23:14 Creatinine 0.9 mg/dL (0.8-1.3) 11/19/21 23:14 Estimated GFR > 60 ml/min 11/19/21 23:14 BUN/Creatinine Ratio 21 % 11/19/21 23:14 Glucose 103 mg/dL (75-100) H 11/19/21 23:14 Hemoglobin A1c 5.8 % (4-6) 11/19/21 23:14 Calcium 9.2 mg/dL (8.4-10.2) 11/19/21 23:14 Total Bilirubin 0.30 mg/dL (0.1-1.2) 11/19/21 23:14 AST 54 units/L (5-40) H 11/19/21 23:14 ALT 46 units/L (7-56) 11/19/21 23:14 Alkaline Phosphatase 70 units/L (35-129) 11/19/21 23:14 Total Protein 7.0 g/dL (6.3-8.2) 11/19/21 23:14 Albumin 3.6 g/dL (3.9-5) L 11/19/21 23:14 Albumin/Globulin Ratio 1.1 % 11/19/21 23:14 Triglycerides 42 mg/dL (2-149) 11/19/21 23:14 Cholesterol 92 mg/dL (50-199) 11/19/21 23:14 LDL Cholesterol Direct 42 mg/dL (50-130) L 11/19/21 23:14 HDL Cholesterol 48 mg/dL (40-59) 11/19/21 23:14 Cholesterol/HDL Ratio 1.91 % 11/19/21 23:14 TSH 3.150 mlU/mL (0.270-4.200) 11/19/21 23:14 Pfeiffer/IV: Voiding Method Toilet Active Medications - Current Medications Current Medications: Generic Name Dose Route Start Last Admin Trade Name Freq PRN Reason Stop Dose Admin Al Hydrox/Mg Hydrox/Simethicone 30 ml 11/22/21 17:00 11/22/21 16:54 Alum-Mag Hydroxide-Simethicone 379-693-56ez/5ml Oral Liqd 30 Ml PO 30 ml Q4H PRN Administration Indigestion Alprazolam 0.5 mg 11/26/21 22:00 11/27/21 21:11 Alprazolam 0.5 Mg Tab PO 0.5 mg BID DENNY Administration Atorvastatin Calcium 80 mg 11/19/21 22:00 11/27/21 21:12 Atorvastatin 40 Mg Tab PO 80 mg QHS DENNY Administration Haloperidol Lactate 5 mg 11/25/21 11:00 Haloperidol Lactate 5 Mg/1 Ml Inj IM Q6H PRN Agitation Melatonin 5 mg 11/21/21 22:35 Melatonin 5 Mg Tab PO QHS PRN Sleep Nicotine 7 mg 11/26/21 21:00 11/27/21 11:45 Nicotine 7 Mg/24 Hr Patch TD Not Given QDAY DENNY Sertraline HCl 75 mg 11/26/21 10:00 11/27/21 09:32 Sertraline 50 Mg Tab PO 75 mg QDAY DENNY Administration Trazodone HCl 50 mg 11/21/21 22:36 Trazodone 50 Mg Tab PO QHS PRN Sleep Nutrition/Malnutrition Assess - Dietary Evaluation Nutrition/Malnutrition Findings: Nutrition Notes Start: 11/25/21 15: 18 Freq: Status: Active Protocol: Document 11/25/21 15:18 CM (Rec: 11/25/21 15:22 CM [id number]) Co-Sign 11/25/21 15:18 WW Nutrition Notes Need for Assessment generated from: LOS Initial or Follow up Assessment Other Pertinent Diagnosis Vascular Dementia Current Diet Regular Diet Labs/Tests 11/25: Reviewed Pertinent Medications 11/25: Atorvasatatin Height 5 ft 11 in Weight 81.641 kg Clarence Body Weight (kg) 78.18 BMI 25.1 Intake Prior to Admission Good Weight change and time frame 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 100% meals consumed during LOS . Physical assessment WNL. No nutritional concerns at this time. 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 Is patient on ventilator? No Is Patient Ambulatory and/or Out of Bed Yes REE-([facility]-ambulatory/OOB) [ 2104.102 [id number]] [facility] Additional Notes Protein 1-1.2g/kg ABW; 82-98g PRO q day Fluid: 30mL/kg ABW or per MD. Nutrition Intervention Change Diet Order: Continue current diet order Goal #1 Pt to consume >75% of estimated energy/protein needs through current diet order. Revisit per MD consult or patient Sign Off request: Additional Comments Monitor need for further nutritional assistance.
[2021-11-28] MEDS: SERTRALINE 50 MG TAB PO SCH (09:42)
[2021-11-28] MEDS: ALPRAZolam 0.5 MG TAB PO SCH ×2 (09:43→21:10)
--- NOTE | 2021-11-28 10:07 | Progress Note ---
Subjective Date of service: 11/28/21 Principal diagnosis: vascular dementia w/ behavioral disturbance, mood disorder unspecified Subjective Comment: The patient was seen today. He is irritable. He says he is ready to go and feels like he is being held hostage. The patient is awaiting placement. He thinks he can go live with his sister. He denies SI/HI or hallucinations of any kind. REVIEW OF SYSTEMS Constitutional: Negative for weight loss ENT: Negative for stridor Respiratory: Negative for cough or hemoptysis All other systems reviewed and are negative MENTAL STATUS EXAMINATION General Appearance and Behavior: Age appropriate, wearing appropriate clothes, cooperative Cooperation: cooperative Psychomotor Behavior: Psychomotor normal Mood: upset Affect and affective range: Euthymic Thought Process: Goal oriented Thought Content: Reality based Speech: Normal volume, Regular rate and rhythm Suicidal Ideation: Denies Homicidal Ideation: Denies Hallucination: Denies Delusions: Denies Impulse Control: Normal Insight and Judgment: Limited Memory: Fair Attention: Attentive Orientation: a/o x 3 ASSESSMENT Vascular dementia with behavioral disturbance Mood disorder, unspecified Treatment Plan Patient admitted for inpatient psychiatric evaluation, medication adjustment and close monitoring The patient's behavior, mood, sleep and appetite will be closely monitored. Patient enrolled in individual and group therapeutic sessions and encouraged to attend. Patient provided with a safe and structured environment. Patient's physical health needs will be addressed by the Hospitalist. Hospitalist Consulted Labs including CBC, CMP, Lipid profile and Hemoglobin A1C levels ordered for baseline reference Social Assessment will be completed and the [facility] Director Intelligence Officer will work with patient and family to ensure a suitable and safe disposition Medication adjustment will be made as clinically indicated Continue current regimen Usual Wellness Amish/Preservation - Trazodone 50 mg po QHS PRN for insomnia - Melatonin 5 mg po QHS to promote circadian rhythm The patient agreed on the treatment plan, understood the risk, benefit, alternative treatment, potential consequence of no treatment, and gave informed consent. Estimated days: 3 Post hospital care: primary care provider, psychiatric provider Case staffed with Dr. Duarte Medications and Allergies Allergies Allergy/AdvReac Type Severity Reaction Status Date / Time gadoteridol [From Prohance] Allergy Unknown Verified 11/16/21 18:43 Home Medications Medication Instructions Recorded Confirmed Last Taken Type ALPRAZolam [Xanax TAB] 0.5 mg PO BID 11/19/21 11/19/21 Unknown History Atorvastatin [Lipitor Tab] 80 mg PO QDAY 11/19/21 11/19/21 Unknown History Sertraline [Zoloft] 25 mg PO QDAY 11/19/21 11/19/21 Unknown History Active Meds: Active Medications Al Hydrox/Mg Hydrox/Simethicone (Alum-Mag Hydroxide-Simethicone [id number]/5ml Oral Liqd 30 Ml) 30 ml PO Q4H PRN PRN Reason: Indigestion Last Admin: 11/22/21 16:54 Dose: 30 ml Alprazolam (Alprazolam 0.5 Mg Tab) 0.5 mg PO BID [facility] Last Admin: 11/28/21 09:43 Dose: 0.5 mg Atorvastatin Calcium (Atorvastatin 40 Mg Tab) 80 mg PO QHS [facility] Last Admin: 11/27/21 21:12 Dose: 80 mg Haloperidol Lactate (Haloperidol Lactate 5 Mg/1 Ml Inj) 5 mg IM Q6H PRN PRN Reason: Agitation Melatonin (Melatonin 5 Mg Tab) 5 mg PO QHS PRN PRN Reason: Sleep Nicotine (Nicotine 7 Mg/24 Hr Patch) 7 mg TD QDAY [facility] Last Admin: 11/27/21 11:45 Dose: Not Given Sertraline HCl (Sertraline 50 Mg Tab) 75 mg PO QDAY [facility] Last Admin: 11/28/21 09:42 Dose: 75 mg Trazodone HCl (Trazodone 50 Mg Tab) 50 mg PO QHS PRN PRN Reason: Sleep Results - Results Labs/Vitals: Laboratory Last Values WBC 9.8 K/mm3 (4.5-11.0) 11/19/21 23:14 RBC 3.69 M/mm3 (3.65-5.03) 11/19/21 23:14 Hgb 12.4 gm/dl (11.8-15.2) 11/19/21 23:14 Hct 35.9 % (35.5-45.6) 11/19/21 23:14 MCV 97 fl (84-94) H 11/19/21 23:14 MCH 34 pg (28-32) H 11/19/21 23:14 MCHC 35 % (32-34) H 11/19/21 23:14 RDW 14.7 % (13.2-15.2) 11/19/21 23:14 Plt Count 190 K/mm3 (140-440) 11/19/21 23:14 Baso % (Auto) Provider Relations Advocate 11/19/21 23:14 Add Manual Diff Complete 11/19/21 23:14 Total Counted 100 11/19/21 23:14 Seg Neuts % (Manual) 50.0 % (40.0-70.0) 11/19/21 23:14 Band Neutrophils % 0 % 11/19/21 23:14 Lymphocytes % (Manual) 34.0 % (13.4-35.0) 11/19/21 23:14 Reactive Lymphs % (Man) 0 % 11/19/21 23:14 Monocytes % (Manual) 12.0 % (0.0-7.3) H 11/19/21 23:14 Eosinophils % (Manual) 4.0 % (0.0-4.3) 11/19/21 23:14 Basophils % (Manual) 0 % (0.0-1.8) 11/19/21 23:14 Metamyelocytes % 0 % 11/19/21 23:14 Myelocytes % 0 % 11/19/21 23:14 Promyelocytes % 0 % 11/19/21 23:14 Blast Cells % 0 % 11/19/21 23:14 Nucleated RBC % Not Reportable 11/19/21 23:14 Seg Neutrophils # Man 4.9 K/mm3 (1.8-7.7) 11/19/21 23:14 Band Neutrophils # 0.0 K/mm3 11/19/21 23:14 Lymphocytes # (Manual) 3.3 K/mm3 (1.2-5.4) 11/19/21 23:14 Abs React Lymphs (Man) 0.0 K/mm3 11/19/21 23:14 Monocytes # (Manual) 1.2 K/mm3 (0.0-0.8) H 11/19/21 23:14 Eosinophils # (Manual) 0.4 K/mm3 (0.0-0.4) 11/19/21 23:14 Basophils # (Manual) 0.0 K/mm3 (0.0-0.1) 11/19/21 23:14 Metamyelocytes # 0.0 K/mm3 11/19/21 23:14 Myelocytes # 0.0 K/mm3 11/19/21 23:14 Promyelocytes # 0.0 K/mm3 11/19/21 23:14 Blast Cells # 0.0 K/mm3 11/19/21 23:14 WBC Morphology Not Reportable 11/19/21 23:14 Hypersegmented Neuts Not Reportable 11/19/21 23:14 Hyposegmented Neuts Not Reportable 11/19/21 23:14 Hypogranular Neuts Not Reportable 11/19/21 23:14 Smudge Cells Not Reportable 11/19/21 23:14 Toxic Granulation Not Reportable 11/19/21 23:14 Toxic Vacuolation Not Reportable 11/19/21 23:14 Dohle Bodies Not Reportable 11/19/21 23:14 Pelger-Huet Anomaly Not Reportable 11/19/21 23:14 Nemesio Rods Not Reportable 11/19/21 23:14 Platelet Estimate Consistent w auto 11/19/21 23:14 Clumped Platelets Not Reportable 11/19/21 23:14 Plt Clumps, EDTA Not Reportable 11/19/21 23:14 Large Platelets Not Reportable 11/19/21 23:14 Giant Platelets Not Reportable 11/19/21 23:14 Platelet Satelliting Not Reportable 11/19/21 23:14 Plt Morphology Comment Not Reportable 11/19/21 23:14 RBC Morphology Not Reportable 11/19/21 23:14 Dimorphic RBCs Not Reportable 11/19/21 23:14 Polychromasia Not Reportable 11/19/21 23:14 Hypochromasia Not Reportable 11/19/21 23:14 Poikilocytosis Not Reportable 11/19/21 23:14 Anisocytosis 1+ 11/19/21 23:14 Microcytosis Not Reportable 11/19/21 23:14 Macrocytosis Not Reportable 11/19/21 23:14 Spherocytes Not Reportable 11/19/21 23:14 Pappenheimer Bodies Not Reportable 11/19/21 23:14 Sickle Cells Not Reportable 11/19/21 23:14 Target Cells Few 11/19/21 23:14 Tear Drop Cells Not Reportable 11/19/21 23:14 Ovalocytes Few 11/19/21 23:14 Helmet Cells Not Reportable 11/19/21 23:14 Burgos-[place] Bodies Not Reportable 11/19/21 23:14 [place] Rings Not Reportable 11/19/21 23:14 Ryan Cells Not Reportable 11/19/21 23:14 Bite Cells Not Reportable 11/19/21 23:14 Crenated Cell Not Reportable 11/19/21 23:14 Elliptocytes Not Reportable 11/19/21 23:14 Acanthocytes (Spur) Rare 11/19/21 23:14 Rouleaux Not Reportable 11/19/21 23:14 Hemoglobin C Crystals Not Reportable 11/19/21 23:14 Schistocytes Not Reportable 11/19/21 23:14 Malaria parasites Not Reportable 11/19/21 23:14 Haim Bodies Not Reportable 11/19/21 23:14 Hem Pathologist Commnt No 11/19/21 23:14 Sodium 137 mmol/L (137-145) 11/19/21 23:14 Potassium 4.2 mmol/L (3.6-5.0) 11/19/21 23:14 Chloride 102.3 mmol/L (98-107) 11/19/21 23:14 Carbon Dioxide 24 mmol/L (22-30) 11/19/21 23:14 Anion Gap 15 mmol/L 11/19/21 23:14 BUN 19 mg/dL (9-20) 11/19/21 23:14 Creatinine 0.9 mg/dL (0.8-1.3) 11/19/21 23:14 Estimated GFR > 60 ml/min 11/19/21 23:14 BUN/Creatinine Ratio 21 % 11/19/21 23:14 Glucose 103 mg/dL (75-100) H 11/19/21 23:14 Hemoglobin A1c 5.8 % (4-6) 11/19/21 23:14 Calcium 9.2 mg/dL (8.4-10.2) 11/19/21 23:14 Total Bilirubin 0.30 mg/dL (0.1-1.2) 11/19/21 23:14 AST 54 units/L (5-40) H 11/19/21 23:14 ALT 46 units/L (7-56) 11/19/21 23:14 Alkaline Phosphatase 70 units/L (35-129) 11/19/21 23:14 Total Protein 7.0 g/dL (6.3-8.2) 11/19/21 23:14 Albumin 3.6 g/dL (3.9-5) L 11/19/21 23:14 Albumin/Globulin Ratio 1.1 % 11/19/21 23:14 Triglycerides 42 mg/dL (2-149) 11/19/21 23:14 Cholesterol 92 mg/dL (50-199) 11/19/21 23:14 LDL Cholesterol Direct 42 mg/dL (50-130) L 11/19/21 23:14 HDL Cholesterol 48 mg/dL (40-59) 11/19/21 23:14 Cholesterol/HDL Ratio 1.91 % 11/19/21 23:14 TSH 3.150 mlU/mL (0.270-4.200) 11/19/21 23:14 Last Vital Signs Temp 97.6 F 11/27/21 17:54 Pulse 90 11/27/21 17:54 Resp 16 11/27/21 17:54 BP 118/76 11/27/21 17:54 Pulse Ox 97 11/27/21 17:54
[2021-11-28] MEDS: NICOTINE 7 MG/24 HR PATCH TD SCH (14:54)
[2021-11-28] MEDS: traZODone 50 MG TAB PO PRN (21:10)
--- NOTE | 2021-11-29 09:37 | Progress Note ---
Subjective Date of service: 11/29/21 Principal diagnosis: vascular dementia w/ behavioral disturbance, mood disorder unspecified Subjective Comment: The patient was seen today. He is upset and states he wants to go home. I inform the patient again that he is awaiting placement to ensure continuity of his mental wellness. The patient says "I got a four bedroom house, I don't need to go anywhere else." He denies SI/HI or hallucinations. REVIEW OF SYSTEMS Constitutional: Negative for weight loss ENT: Negative for stridor Respiratory: Negative for cough or hemoptysis All other systems reviewed and are negative MENTAL STATUS EXAMINATION General Appearance and Behavior: Age appropriate, wearing appropriate clothes, cooperative Cooperation: cooperative Psychomotor Behavior: Psychomotor normal Mood: upset Affect and affective range: Euthymic Thought Process: Goal oriented Thought Content: Reality based Speech: Normal volume, Regular rate and rhythm Suicidal Ideation: Denies Homicidal Ideation: Denies Hallucination: Denies Delusions: Denies Impulse Control: Normal Insight and Judgment: Limited Memory: Fair Attention: Attentive Orientation: a/o x 3 ASSESSMENT Vascular dementia with behavioral disturbance Mood disorder, unspecified Treatment Plan Patient admitted for inpatient psychiatric evaluation, medication adjustment and close monitoring The patient's behavior, mood, sleep and appetite will be closely monitored. Patient enrolled in individual and group therapeutic sessions and encouraged to attend. Patient provided with a safe and structured environment. Patient's physical health needs will be addressed by the Hospitalist. Hospitalist Consulted Labs including CBC, CMP, Lipid profile and Hemoglobin A1C levels ordered for baseline reference Social Assessment will be completed and the National Account Director will work with patient and family to ensure a suitable and safe disposition Medication adjustment will be made as clinically indicated Continue current regimen Usual Wellness Roman Catholic/Preservation - Trazodone 50 mg po QHS PRN for insomnia - Melatonin 5 mg po QHS to promote circadian rhythm The patient agreed on the treatment plan, understood the risk, benefit, alternative treatment, potential consequence of no treatment, and gave informed consent. Estimated days: 3 Post hospital care: primary care provider, psychiatric provider Case staffed with Dr. Duarte Medications and Allergies Allergies Allergy/AdvReac Type Severity Reaction Status Date / Time gadoteridol [From Prohance] Allergy Unknown Verified 11/16/21 18:43 Home Medications Medication Instructions Recorded Confirmed Last Taken Type ALPRAZolam [Xanax TAB] 0.5 mg PO BID 11/19/21 11/19/21 Unknown History Atorvastatin [Lipitor Tab] 80 mg PO QDAY 11/19/21 11/19/21 Unknown History Sertraline [Zoloft] 25 mg PO QDAY 11/19/21 11/19/21 Unknown History Active Meds: Active Medications Al Hydrox/Mg Hydrox/Simethicone (Alum-Mag Hydroxide-Simethicone 731-163-31pp/5ml Oral Liqd 30 Ml) 30 ml PO Q4H PRN PRN Reason: Indigestion Last Admin: 11/22/21 16:54 Dose: 30 ml Alprazolam (Alprazolam 0.5 Mg Tab) 0.5 mg PO BID [facility] Last Admin: 11/28/21 21:10 Dose: 0.5 mg Atorvastatin Calcium (Atorvastatin 40 Mg Tab) 80 mg PO QHS [facility] Last Admin: 11/28/21 21:10 Dose: 80 mg Haloperidol Lactate (Haloperidol Lactate 5 Mg/1 Ml Inj) 5 mg IM Q6H PRN PRN Reason: Agitation Melatonin (Melatonin 5 Mg Tab) 5 mg PO QHS PRN PRN Reason: Sleep Nicotine (Nicotine 7 Mg/24 Hr Patch) 7 mg TD QDAY [facility] Last Admin: 11/28/21 14:54 Dose: Not Given Sertraline HCl (Sertraline 50 Mg Tab) 75 mg PO QDAY [facility] Last Admin: 11/28/21 09:42 Dose: 75 mg Trazodone HCl (Trazodone 50 Mg Tab) 50 mg PO QHS PRN PRN Reason: Sleep Last Admin: 11/28/21 21:10 Dose: 50 mg Results - Results Labs/Vitals: Laboratory Last Values WBC 9.8 K/mm3 (4.5-11.0) 11/19/21 23:14 RBC 3.69 M/mm3 (3.65-5.03) 11/19/21 23:14 Hgb 12.4 gm/dl (11.8-15.2) 11/19/21 23:14 Hct 35.9 % (35.5-45.6) 11/19/21 23:14 MCV 97 fl (84-94) H 11/19/21 23:14 MCH 34 pg (28-32) H 11/19/21 23:14 MCHC 35 % (32-34) H 11/19/21 23:14 RDW 14.7 % (13.2-15.2) 11/19/21 23:14 Plt Count 190 K/mm3 (140-440) 11/19/21 23:14 Baso % (Auto) Cable Supervisor 11/19/21 23:14 Add Manual Diff Complete 11/19/21 23:14 Total Counted 100 11/19/21 23:14 Seg Neuts % (Manual) 50.0 % (40.0-70.0) 11/19/21 23:14 Band Neutrophils % 0 % 11/19/21 23:14 Lymphocytes % (Manual) 34.0 % (13.4-35.0) 11/19/21 23:14 Reactive Lymphs % (Man) 0 % 11/19/21 23:14 Monocytes % (Manual) 12.0 % (0.0-7.3) H 11/19/21 23:14 Eosinophils % (Manual) 4.0 % (0.0-4.3) 11/19/21 23:14 Basophils % (Manual) 0 % (0.0-1.8) 11/19/21 23:14 Metamyelocytes % 0 % 11/19/21 23:14 Myelocytes % 0 % 11/19/21 23:14 Promyelocytes % 0 % 11/19/21 23:14 Blast Cells % 0 % 11/19/21 23:14 Nucleated RBC % Not Reportable 11/19/21 23:14 Seg Neutrophils # Man 4.9 K/mm3 (1.8-7.7) 11/19/21 23:14 Band Neutrophils # 0.0 K/mm3 11/19/21 23:14 Lymphocytes # (Manual) 3.3 K/mm3 (1.2-5.4) 11/19/21 23:14 Abs React Lymphs (Man) 0.0 K/mm3 11/19/21 23:14 Monocytes # (Manual) 1.2 K/mm3 (0.0-0.8) H 11/19/21 23:14 Eosinophils # (Manual) 0.4 K/mm3 (0.0-0.4) 11/19/21 23:14 Basophils # (Manual) 0.0 K/mm3 (0.0-0.1) 11/19/21 23:14 Metamyelocytes # 0.0 K/mm3 11/19/21 23:14 Myelocytes # 0.0 K/mm3 11/19/21 23:14 Promyelocytes # 0.0 K/mm3 11/19/21 23:14 Blast Cells # 0.0 K/mm3 11/19/21 23:14 WBC Morphology Not Reportable 11/19/21 23:14 Hypersegmented Neuts Not Reportable 11/19/21 23:14 Hyposegmented Neuts Not Reportable 11/19/21 23:14 Hypogranular Neuts Not Reportable 11/19/21 23:14 Smudge Cells Not Reportable 11/19/21 23:14 Toxic Granulation Not Reportable 11/19/21 23:14 Toxic Vacuolation Not Reportable 11/19/21 23:14 Dohle Bodies Not Reportable 11/19/21 23:14 Pelger-Huet Anomaly Not Reportable 11/19/21 23:14 Nemesio Rods Not Reportable 11/19/21 23:14 Platelet Estimate Consistent w auto 11/19/21 23:14 Clumped Platelets Not Reportable 11/19/21 23:14 Plt Clumps, EDTA Not Reportable 11/19/21 23:14 Large Platelets Not Reportable 11/19/21 23:14 Giant Platelets Not Reportable 11/19/21 23:14 Platelet Satelliting Not Reportable 11/19/21 23:14 Plt Morphology Comment Not Reportable 11/19/21 23:14 RBC Morphology Not Reportable 11/19/21 23:14 Dimorphic RBCs Not Reportable 11/19/21 23:14 Polychromasia Not Reportable 11/19/21 23:14 Hypochromasia Not Reportable 11/19/21 23:14 Poikilocytosis Not Reportable 11/19/21 23:14 Anisocytosis 1+ 11/19/21 23:14 Microcytosis Not Reportable 11/19/21 23:14 Macrocytosis Not Reportable 11/19/21 23:14 Spherocytes Not Reportable 11/19/21 23:14 Pappenheimer Bodies Not Reportable 11/19/21 23:14 Sickle Cells Not Reportable 11/19/21 23:14 Target Cells Few 11/19/21 23:14 Tear Drop Cells Not Reportable 11/19/21 23:14 Ovalocytes Few 11/19/21 23:14 Helmet Cells Not Reportable 11/19/21 23:14 [place] Bodies Not Reportable 11/19/21 23:14 [place] Rings Not Reportable 11/19/21 23:14 Ryan Cells Not Reportable 11/19/21 23:14 Bite Cells Not Reportable 11/19/21 23:14 Crenated Cell Not Reportable 11/19/21 23:14 Elliptocytes Not Reportable 11/19/21 23:14 Acanthocytes (Spur) Rare 11/19/21 23:14 Rouleaux Not Reportable 11/19/21 23:14 Hemoglobin C Crystals Not Reportable 11/19/21 23:14 Schistocytes Not Reportable 11/19/21 23:14 Malaria parasites Not Reportable 11/19/21 23:14 Haim Bodies Not Reportable 11/19/21 23:14 Hem Pathologist Commnt No 11/19/21 23:14 Sodium 137 mmol/L (137-145) 11/19/21 23:14 Potassium 4.2 mmol/L (3.6-5.0) 11/19/21 23:14 Chloride 102.3 mmol/L (98-107) 11/19/21 23:14 Carbon Dioxide 24 mmol/L (22-30) 11/19/21 23:14 Anion Gap 15 mmol/L 11/19/21 23:14 BUN 19 mg/dL (9-20) 11/19/21 23:14 Creatinine 0.9 mg/dL (0.8-1.3) 11/19/21 23:14 Estimated GFR > 60 ml/min 11/19/21 23:14 BUN/Creatinine Ratio 21 % 11/19/21 23:14 Glucose 103 mg/dL (75-100) H 11/19/21 23:14 Hemoglobin A1c 5.8 % (4-6) 11/19/21 23:14 Calcium 9.2 mg/dL (8.4-10.2) 11/19/21 23:14 Total Bilirubin 0.30 mg/dL (0.1-1.2) 11/19/21 23:14 AST 54 units/L (5-40) H 11/19/21 23:14 ALT 46 units/L (7-56) 11/19/21 23:14 Alkaline Phosphatase 70 units/L (35-129) 11/19/21 23:14 Total Protein 7.0 g/dL (6.3-8.2) 11/19/21 23:14 Albumin 3.6 g/dL (3.9-5) L 11/19/21 23:14 Albumin/Globulin Ratio 1.1 % 11/19/21 23:14 Triglycerides 42 mg/dL (2-149) 11/19/21 23:14 Cholesterol 92 mg/dL (50-199) 11/19/21 23:14 LDL Cholesterol Direct 42 mg/dL (50-130) L 11/19/21 23:14 HDL Cholesterol 48 mg/dL (40-59) 11/19/21 23:14 Cholesterol/HDL Ratio 1.91 % 11/19/21 23:14 TSH 3.150 mlU/mL (0.270-4.200) 11/19/21 23:14 Last Vital Signs Temp 98.4 F 11/28/21 18:11 Pulse 70 11/28/21 18:11 Resp 18 11/28/21 18:11 BP 134/84 11/28/21 18:11 Pulse Ox 99 11/28/21 18:11
--- NOTE | 2021-11-29 10:02 | Progress Note ---
Assessment and Plan Assessment and plan: 66 YO Male with Vascular Dementia with Behavioral Disturbance, Cerebral Atherosclerosis, HTN, HLD, DESTIN, MDD admitted to [facility] for psychiatric stabilization. Consult placed by Dr. Pal for medical management. Patient seen and evaluated in the recreation room. No reported nursing events. Patient appears to be at baseline level of cognition and function. 11/29: Continue supportive care. - Patient Problems (1) Vascular dementia with behavioral disturbance Current Visit: Yes Status: Acute Plan to address problem: Verbal prompting, verbal redirection, benzodiazepine therapy as clinically indicated. (2) Cerebral atherosclerosis Current Visit: Yes Status: Acute Plan to address problem: Antiplatelet therapy as clinically indicated, risk factor reduction. (3) Hypertension Current Visit: Yes Status: Acute Qualifiers: Hypertension type: primary hypertension Qualified Code(s): I10 - Essential (primary) hypertension Plan to address problem: Monitor blood pressure every shift, continue medical management. Continue supportive care. (4) Hyperlipidemia Current Visit: Yes Status: Acute Plan to address problem: Statin therapy, low-cholesterol diet (5) Generalized anxiety disorder Current Visit: Yes Status: Acute Plan to address problem: Benzodiazepine therapy as clinically indicated. (6) Major depression/ mood disorder/ Current Visit: Yes Status: Acute Plan to address problem: Continue medical management, cognitive behavioral therapy. (7) Advance care planning Current Visit: Yes Status: Acute Plan to address problem: Disease education done, care plan discussed, diagnoses discussed, prognosis discussed, patient is full code. Patient acknowledges understanding and agreement with care plan, +30 minutes. (8) Preventative health care Current Visit: Yes Status: Acute Plan to address problem: Patient counseled regarding outpatient follow-up with primary care physician for all age and risk factor appropriate screening test. +30 minutes. History Interval history: Patient seen and examined no acute distress. Hospitalist Physical - Physical exam Narrative exam: VITAL SIGNS: Reviewed. GENERAL: The patient appears normally developed, sitting up in a wheelchair in the day room having breakfast. Vital signs as documented. HEAD: No signs of head trauma. EYES: Pupils are equal. Extraocular motions intact. EARS: Hearing grossly intact. MOUTH: Oropharynx is normal. NECK: No adenopathy, no JVD. CHEST: Chest with clear breath sounds bilaterally. No wheezes, rales, or rhonchi. CARDIAC: Regular rate and rhythm. S1 and S2, without murmurs, gallops, or rubs. VASCULAR: No Edema. Peripheral pulses normal and equal in all extremities. ABDOMEN: Soft, non tender and non distended. No rebound or guarding, and no masses palpated. Bowel Sounds normal. MUSCULOSKELETAL: Good range of motion of all major joints. Extremities without clubbing, cyanosis or edema. NEUROLOGIC EXAM: Alert and oriented x 3 No focal sensory or strength deficits. Speech normal. Follows commands. PSYCHIATRIC: Mood normal. SKIN: detail exam as documented in skin assessment - Constitutional Vitals: Temp Pulse Resp BP Pulse Ox 98.4 F 70 18 134/84 99 11/28/21 18:11 11/28/21 18:11 11/28/21 18:11 11/28/21 18:11 11/28/21 18:11 General appearance: Present: no acute distress Results - Labs CBC & Chem 7: 11/19/21 23:14 11/19/21 23:14 Labs: Laboratory Last Values WBC 9.8 K/mm3 (4.5-11.0) 11/19/21 23:14 RBC 3.69 M/mm3 (3.65-5.03) 11/19/21 23:14 Hgb 12.4 gm/dl (11.8-15.2) 11/19/21 23:14 Hct 35.9 % (35.5-45.6) 11/19/21 23:14 MCV 97 fl (84-94) H 11/19/21 23:14 MCH 34 pg (28-32) H 11/19/21 23:14 MCHC 35 % (32-34) H 11/19/21 23:14 RDW 14.7 % (13.2-15.2) 11/19/21 23:14 Plt Count 190 K/mm3 (140-440) 11/19/21 23:14 Baso % (Auto) Cell Feed Department Supervisor 11/19/21 23:14 Add Manual Diff Complete 11/19/21 23:14 Total Counted 100 11/19/21 23:14 Seg Neuts % (Manual) 50.0 % (40.0-70.0) 11/19/21 23:14 Band Neutrophils % 0 % 11/19/21 23:14 Lymphocytes % (Manual) 34.0 % (13.4-35.0) 11/19/21 23:14 Reactive Lymphs % (Man) 0 % 11/19/21 23:14 Monocytes % (Manual) 12.0 % (0.0-7.3) H 11/19/21 23:14 Eosinophils % (Manual) 4.0 % (0.0-4.3) 11/19/21 23:14 Basophils % (Manual) 0 % (0.0-1.8) 11/19/21 23:14 Metamyelocytes % 0 % 11/19/21 23:14 Myelocytes % 0 % 11/19/21 23:14 Promyelocytes % 0 % 11/19/21 23:14 Blast Cells % 0 % 11/19/21 23:14 Nucleated RBC % Not Reportable 11/19/21 23:14 Seg Neutrophils # Man 4.9 K/mm3 (1.8-7.7) 11/19/21 23:14 Band Neutrophils # 0.0 K/mm3 11/19/21 23:14 Lymphocytes # (Manual) 3.3 K/mm3 (1.2-5.4) 11/19/21 23:14 Abs React Lymphs (Man) 0.0 K/mm3 11/19/21 23:14 Monocytes # (Manual) 1.2 K/mm3 (0.0-0.8) H 11/19/21 23:14 Eosinophils # (Manual) 0.4 K/mm3 (0.0-0.4) 11/19/21 23:14 Basophils # (Manual) 0.0 K/mm3 (0.0-0.1) 11/19/21 23:14 Metamyelocytes # 0.0 K/mm3 11/19/21 23:14 Myelocytes # 0.0 K/mm3 11/19/21 23:14 Promyelocytes # 0.0 K/mm3 11/19/21 23:14 Blast Cells # 0.0 K/mm3 11/19/21 23:14 WBC Morphology Not Reportable 11/19/21 23:14 Hypersegmented Neuts Not Reportable 11/19/21 23:14 Hyposegmented Neuts Not Reportable 11/19/21 23:14 Hypogranular Neuts Not Reportable 11/19/21 23:14 Smudge Cells Not Reportable 11/19/21 23:14 Toxic Granulation Not Reportable 11/19/21 23:14 Toxic Vacuolation Not Reportable 11/19/21 23:14 Dohle Bodies Not Reportable 11/19/21 23:14 Pelger-Huet Anomaly Not Reportable 11/19/21 23:14 Nemesio Rods Not Reportable 11/19/21 23:14 Platelet Estimate Consistent w auto 11/19/21 23:14 Clumped Platelets Not Reportable 11/19/21 23:14 Plt Clumps, EDTA Not Reportable 11/19/21 23:14 Large Platelets Not Reportable 11/19/21 23:14 Giant Platelets Not Reportable 11/19/21 23:14 Platelet Satelliting Not Reportable 11/19/21 23:14 Plt Morphology Comment Not Reportable 11/19/21 23:14 RBC Morphology Not Reportable 11/19/21 23:14 Dimorphic RBCs Not Reportable 11/19/21 23:14 Polychromasia Not Reportable 11/19/21 23:14 Hypochromasia Not Reportable 11/19/21 23:14 Poikilocytosis Not Reportable 11/19/21 23:14 Anisocytosis 1+ 11/19/21 23:14 Microcytosis Not Reportable 11/19/21 23:14 Macrocytosis Not Reportable 11/19/21 23:14 Spherocytes Not Reportable 11/19/21 23:14 Pappenheimer Bodies Not Reportable 11/19/21 23:14 Sickle Cells Not Reportable 11/19/21 23:14 Target Cells Few 11/19/21 23:14 Tear Drop Cells Not Reportable 11/19/21 23:14 Ovalocytes Few 11/19/21 23:14 Helmet Cells Not Reportable 11/19/21 23:14 [place] Bodies Not Reportable 11/19/21 23:14 [place] Rings Not Reportable 11/19/21 23:14 Ryan Cells Not Reportable 11/19/21 23:14 Bite Cells Not Reportable 11/19/21 23:14 Crenated Cell Not Reportable 11/19/21 23:14 Elliptocytes Not Reportable 11/19/21 23:14 Acanthocytes (Spur) Rare 11/19/21 23:14 Rouleaux Not Reportable 11/19/21 23:14 Hemoglobin C Crystals Not Reportable 11/19/21 23:14 Schistocytes Not Reportable 11/19/21 23:14 Malaria parasites Not Reportable 11/19/21 23:14 Haim Bodies Not Reportable 11/19/21 23:14 Hem Pathologist Commnt No 11/19/21 23:14 Sodium 137 mmol/L (137-145) 11/19/21 23:14 Potassium 4.2 mmol/L (3.6-5.0) 11/19/21 23:14 Chloride 102.3 mmol/L (98-107) 11/19/21 23:14 Carbon Dioxide 24 mmol/L (22-30) 11/19/21 23:14 Anion Gap 15 mmol/L 11/19/21 23:14 BUN 19 mg/dL (9-20) 11/19/21 23:14 Creatinine 0.9 mg/dL (0.8-1.3) 11/19/21 23:14 Estimated GFR > 60 ml/min 11/19/21 23:14 BUN/Creatinine Ratio 21 % 11/19/21 23:14 Glucose 103 mg/dL (75-100) H 11/19/21 23:14 Hemoglobin A1c 5.8 % (4-6) 11/19/21 23:14 Calcium 9.2 mg/dL (8.4-10.2) 11/19/21 23:14 Total Bilirubin 0.30 mg/dL (0.1-1.2) 11/19/21 23:14 AST 54 units/L (5-40) H 11/19/21 23:14 ALT 46 units/L (7-56) 11/19/21 23:14 Alkaline Phosphatase 70 units/L (35-129) 11/19/21 23:14 Total Protein 7.0 g/dL (6.3-8.2) 11/19/21 23:14 Albumin 3.6 g/dL (3.9-5) L 11/19/21 23:14 Albumin/Globulin Ratio 1.1 % 11/19/21 23:14 Triglycerides 42 mg/dL (2-149) 11/19/21 23:14 Cholesterol 92 mg/dL (50-199) 11/19/21 23:14 LDL Cholesterol Direct 42 mg/dL (50-130) L 11/19/21 23:14 HDL Cholesterol 48 mg/dL (40-59) 11/19/21 23:14 Cholesterol/HDL Ratio 1.91 % 11/19/21 23:14 TSH 3.150 mlU/mL (0.270-4.200) 11/19/21 23:14 Pfeiffer/IV: Voiding Method Diaper Active Medications - Current Medications Current Medications: Generic Name Dose Route Start Last Admin Trade Name Freq PRN Reason Stop Dose Admin Al Hydrox/Mg Hydrox/Simethicone 30 ml 11/22/21 17:00 11/22/21 16:54 Alum-Mag Hydroxide-Simethicone [phone]/5ml Oral Liqd 30 Ml PO 30 ml Q4H PRN Administration Indigestion Alprazolam 0.5 mg 11/26/21 22:00 11/28/21 21:10 Alprazolam 0.5 Mg Tab PO 0.5 mg BID DENNY Administration Atorvastatin Calcium 80 mg 11/19/21 22:00 11/28/21 21:10 Atorvastatin 40 Mg Tab PO 80 mg QHS DENNY Administration Haloperidol Lactate 5 mg 11/25/21 11:00 Haloperidol Lactate 5 Mg/1 Ml Inj IM Q6H PRN Agitation Melatonin 5 mg 11/21/21 22:35 Melatonin 5 Mg Tab PO QHS PRN Sleep Nicotine 7 mg 11/26/21 21:00 11/28/21 14:54 Nicotine 7 Mg/24 Hr Patch TD Not Given QDAY DENNY Sertraline HCl 75 mg 11/26/21 10:00 11/28/21 09:42 Sertraline 50 Mg Tab PO 75 mg QDAY DENNY Administration Trazodone HCl 50 mg 11/21/21 22:36 11/28/21 21:10 Trazodone 50 Mg Tab PO 50 mg QHS PRN Administration Sleep Nutrition/Malnutrition Assess - Dietary Evaluation Nutrition/Malnutrition Findings: Nutrition Notes Start: 11/25/21 15:18 Freq: Status: Active Protocol: Document 11/25/21 15:18 CM (Rec: 11/25/21 15:22 CM [id number]) Co-Sign 11/25/21 15:18 WW Nutrition Notes Need for Assessment generated from: LOS Initial or Follow up Assessment Other Pertinent Diagnosis Vascular Dementia Current Diet Regular Diet Labs/Tests 11/25: Reviewed Pertinent Medications 11/25: Atorvasatatin Height 5 ft 11 in Weight 81.641 kg [place] Body Weight (kg) 78.18 BMI 25.1 Intake Prior to Admission Good Weight change and time frame 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 100% meals consumed during LOS . Physical assessment WNL. No nutritional concerns at this time. 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 Is patient on ventilator? No Is Patient Ambulatory and/or Out of Bed Yes REE-([facility] [place]OOB) [ [id number] [id number]] Calculation [facility]ations [facility] Additional Notes Protein 1-1.2g/kg ABW; 82-98g PRO q day Fluid: 30mL/kg ABW or per MD. Nutrition Intervention Change Diet Order: Continue current diet order Goal #1 Pt to consume >75% of estimated energy/protein needs through current diet order. Revisit per MD consult or patient Sign Off request: Additional Comments Monitor need for further nutritional assistance.
[2021-11-29] MEDS: SERTRALINE 50 MG TAB PO SCH (10:13)
[2021-11-29] MEDS: ALPRAZolam 0.5 MG TAB PO SCH ×2 (10:13→21:20)
[2021-11-29] MEDS: NICOTINE 7 MG/24 HR PATCH TD SCH (10:16)
[2021-11-29] MEDS: traZODone 50 MG TAB PO PRN (21:20)
[2021-11-30] MEDS: ALPRAZolam 0.5 MG TAB PO SCH ×2 (09:16→21:15)
[2021-11-30] MEDS: SERTRALINE 50 MG TAB PO SCH (09:17)
[2021-11-30] MEDS: NICOTINE 7 MG/24 HR PATCH TD SCH (09:23)
--- NOTE | 2021-11-30 10:56 | Progress Note ---
Subjective Date of service: 11/30/21 Principal diagnosis: vascular dementia w/ behavioral disturbance, mood disorder unspecified Subjective Comment: The patient was seen today. He is lying in bed asleep. He easily arouses. He says he's doing fine. He denies SI/HI or hallucinations. The patient is awaiting care home placement. REVIEW OF SYSTEMS Constitutional: Negative for weight loss ENT: Negative for stridor Respiratory: Negative for cough or hemoptysis All other systems reviewed and are negative MENTAL STATUS EXAMINATION General Appearance and Behavior: Age appropriate, wearing appropriate clothes, cooperative Cooperation: cooperative Psychomotor Behavior: Psychomotor normal Mood: upset Affect and affective range: Euthymic Thought Process: Goal oriented Thought Content: Reality based Speech: Normal volume, Regular rate and rhythm Suicidal Ideation: Denies Homicidal Ideation: Denies Hallucination: Denies Delusions: Denies Impulse Control: Normal Insight and Judgment: Limited Memory: Fair Attention: Attentive Orientation: a/o x 3 ASSESSMENT Vascular dementia with behavioral disturbance Mood disorder, unspecified Treatment Plan Patient admitted for inpatient psychiatric evaluation, medication adjustment and close monitoring The patient's behavior, mood, sleep and appetite will be closely monitored. Patient enrolled in individual and group therapeutic sessions and encouraged to attend. Patient provided with a safe and structured environment. Patient's physical health needs will be addressed by the Hospitalist. Hospitalist Consulted Labs including CBC, CMP, Lipid profile and Hemoglobin A1C levels ordered for baseline reference Social Assessment will be completed and the Funeral Arranger will work with patient and family to ensure a suitable and safe disposition Medication adjustment will be made as clinically indicated Continue current regimen Usual Wellness Hindu/Preservation - Trazodone 50 mg po QHS PRN for insomnia - Melatonin 5 mg po QHS to promote circadian rhythm The patient agreed on the treatment plan, understood the risk, benefit, alternative treatment, potential consequence of no treatment, and gave informed consent. Estimated days: 3 Post hospital care: primary care provider, psychiatric provider Case staffed with Dr. Duarte Medications and Allergies Allergies Allergy/AdvReac Type Severity Reaction Status Date / Time gadoteridol [From Prohance] Allergy Unknown Verified 11/16/21 18:43 Home Medications Medication Instructions Recorded Confirmed Last Taken Type ALPRAZolam [Xanax TAB] 0.5 mg PO BID 11/19/21 11/19/21 Unknown History Atorvastatin [Lipitor Tab] 80 mg PO QDAY 11/19/21 11/19/21 Unknown History Sertraline [Zoloft] 25 mg PO QDAY 11/19/21 11/19/21 Unknown History Active Meds: Active Medications Al Hydrox/Mg Hydrox/Simethicone (Alum-Mag Hydroxide-Simethicone 457-062-98dr/5ml Oral Liqd 30 Ml) 30 ml PO Q4H PRN PRN Reason: Indigestion Last Admin: 11/22/21 16:54 Dose: 30 ml Alprazolam (Alprazolam 0.5 Mg Tab) 0.5 mg PO BID [facility] Last Admin: 11/30/21 09:16 Dose: 0.5 mg Atorvastatin Calcium (Atorvastatin 40 Mg Tab) 80 mg PO QHS [facility] Last Admin: 11/29/21 21:20 Dose: 80 mg Haloperidol Lactate (Haloperidol Lactate 5 Mg/1 Ml Inj) 5 mg IM Q6H PRN PRN Reason: Agitation Melatonin (Melatonin 5 Mg Tab) 5 mg PO QHS PRN PRN Reason: Sleep Nicotine (Nicotine 7 Mg/24 Hr Patch) 7 mg TD QDAY [facility] Last Admin: 11/30/21 09:23 Dose: Not Given Sertraline HCl (Sertraline 50 Mg Tab) 75 mg PO QDAY [facility] Last Admin: 11/30/21 09:17 Dose: 75 mg Trazodone HCl (Trazodone 50 Mg Tab) 50 mg PO QHS PRN PRN Reason: Sleep Last Admin: 11/29/21 21:20 Dose: 50 mg Results - Results Labs/Vitals: Laboratory Last Values WBC 9.8 K/mm3 (4.5-11.0) 11/19/21 23:14 RBC 3.69 M/mm3 (3.65-5.03) 11/19/21 23:14 Hgb 12.4 gm/dl (11.8-15.2) 11/19/21 23:14 Hct 35.9 % (35.5-45.6) 11/19/21 23:14 MCV 97 fl (84-94) H 11/19/21 23:14 MCH 34 pg (28-32) H 11/19/21 23:14 MCHC 35 % (32-34) H 11/19/21 23:14 RDW 14.7 % (13.2-15.2) 11/19/21 23:14 Plt Count 190 K/mm3 (140-440) 11/19/21 23:14 Baso % (Auto) Church Supervisor 11/19/21 23:14 Add Manual Diff Complete 11/19/21 23:14 Total Counted 100 11/19/21 23:14 Seg Neuts % (Manual) 50.0 % (40.0-70.0) 11/19/21 23:14 Band Neutrophils % 0 % 11/19/21 23:14 Lymphocytes % (Manual) 34.0 % (13.4-35.0) 11/19/21 23:14 Reactive Lymphs % (Man) 0 % 11/19/21 23:14 Monocytes % (Manual) 12.0 % (0.0-7.3) H 11/19/21 23:14 Eosinophils % (Manual) 4.0 % (0.0-4.3) 11/19/21 23:14 Basophils % (Manual) 0 % (0.0-1.8) 11/19/21 23:14 Metamyelocytes % 0 % 11/19/21 23:14 Myelocytes % 0 % 11/19/21 23:14 Promyelocytes % 0 % 11/19/21 23:14 Blast Cells % 0 % 11/19/21 23:14 Nucleated RBC % Not Reportable 11/19/21 23:14 Seg Neutrophils # Man 4.9 K/mm3 (1.8-7.7) 11/19/21 23:14 Band Neutrophils # 0.0 K/mm3 11/19/21 23:14 Lymphocytes # (Manual) 3.3 K/mm3 (1.2-5.4) 11/19/21 23:14 Abs React Lymphs (Man) 0.0 K/mm3 11/19/21 23:14 Monocytes # (Manual) 1.2 K/mm3 (0.0-0.8) H 11/19/21 23:14 Eosinophils # (Manual) 0.4 K/mm3 (0.0-0.4) 11/19/21 23:14 Basophils # (Manual) 0.0 K/mm3 (0.0-0.1) 11/19/21 23:14 Metamyelocytes # 0.0 K/mm3 11/19/21 23:14 Myelocytes # 0.0 K/mm3 11/19/21 23:14 Promyelocytes # 0.0 K/mm3 11/19/21 23:14 Blast Cells # 0.0 K/mm3 11/19/21 23:14 WBC Morphology Not Reportable 11/19/21 23:14 Hypersegmented Neuts Not Reportable 11/19/21 23:14 Hyposegmented Neuts Not Reportable 11/19/21 23:14 Hypogranular Neuts Not Reportable 11/19/21 23:14 Smudge Cells Not Reportable 11/19/21 23:14 Toxic Granulation Not Reportable 11/19/21 23:14 Toxic Vacuolation Not Reportable 11/19/21 23:14 Dohle Bodies Not Reportable 11/19/21 23:14 Pelger-Huet Anomaly Not Reportable 11/19/21 23:14 Nemesio Rods Not Reportable 11/19/21 23:14 Platelet Estimate Consistent w auto 11/19/21 23:14 Clumped Platelets Not Reportable 11/19/21 23:14 Plt Clumps, EDTA Not Reportable 11/19/21 23:14 Large Platelets Not Reportable 11/19/21 23:14 Giant Platelets Not Reportable 11/19/21 23:14 Platelet Satelliting Not Reportable 11/19/21 23:14 Plt Morphology Comment Not Reportable 11/19/21 23:14 RBC Morphology Not Reportable 11/19/21 23:14 Dimorphic RBCs Not Reportable 11/19/21 23:14 Polychromasia Not Reportable 11/19/21 23:14 Hypochromasia Not Reportable 11/19/21 23:14 Poikilocytosis Not Reportable 11/19/21 23:14 Anisocytosis 1+ 11/19/21 23:14 Microcytosis Not Reportable 11/19/21 23:14 Macrocytosis Not Reportable 11/19/21 23:14 Spherocytes Not Reportable 11/19/21 23:14 Pappenheimer Bodies Not Reportable 11/19/21 23:14 Sickle Cells Not Reportable 11/19/21 23:14 Target Cells Few 11/19/21 23:14 Tear Drop Cells Not Reportable 11/19/21 23:14 Ovalocytes Few 11/19/21 23:14 Helmet Cells Not Reportable 11/19/21 23:14 Burgos-Trainer Bodies Not Reportable 11/19/21 23:14 [place] Rings Not Reportable 11/19/21 23:14 Ryan Cells Not Reportable 11/19/21 23:14 Bite Cells Not Reportable 11/19/21 23:14 Crenated Cell Not Reportable 11/19/21 23:14 Elliptocytes Not Reportable 11/19/21 23:14 Acanthocytes (Spur) Rare 11/19/21 23:14 Rouleaux Not Reportable 11/19/21 23:14 Hemoglobin C Crystals Not Reportable 11/19/21 23:14 Schistocytes Not Reportable 11/19/21 23:14 Malaria parasites Not Reportable 11/19/21 23:14 Haim Bodies Not Reportable 11/19/21 23:14 Hem Pathologist Commnt No 11/19/21 23:14 Sodium 137 mmol/L (137-145) 11/19/21 23:14 Potassium 4.2 mmol/L (3.6-5.0) 11/19/21 23:14 Chloride 102.3 mmol/L (98-107) 11/19/21 23:14 Carbon Dioxide 24 mmol/L (22-30) 11/19/21 23:14 Anion Gap 15 mmol/L 11/19/21 23:14 BUN 19 mg/dL (9-20) 11/19/21 23:14 Creatinine 0.9 mg/dL (0.8-1.3) 11/19/21 23:14 Estimated GFR > 60 ml/min 11/19/21 23:14 BUN/Creatinine Ratio 21 % 11/19/21 23:14 Glucose 103 mg/dL (75-100) H 11/19/21 23:14 Hemoglobin A1c 5.8 % (4-6) 11/19/21 23:14 Calcium 9.2 mg/dL (8.4-10.2) 11/19/21 23:14 Total Bilirubin 0.30 mg/dL (0.1-1.2) 11/19/21 23:14 AST 54 units/L (5-40) H 11/19/21 23:14 ALT 46 units/L (7-56) 11/19/21 23:14 Alkaline Phosphatase 70 units/L (35-129) 11/19/21 23:14 Total Protein 7.0 g/dL (6.3-8.2) 11/19/21 23:14 Albumin 3.6 g/dL (3.9-5) L 11/19/21 23:14 Albumin/Globulin Ratio 1.1 % 11/19/21 23:14 Triglycerides 42 mg/dL (2-149) 11/19/21 23:14 Cholesterol 92 mg/dL (50-199) 11/19/21 23:14 LDL Cholesterol Direct 42 mg/dL (50-130) L 11/19/21 23:14 HDL Cholesterol 48 mg/dL (40-59) 11/19/21 23:14 Cholesterol/HDL Ratio 1.91 % 11/19/21 23:14 TSH 3.150 mlU/mL (0.270-4.200) 11/19/21 23:14 Last Vital Signs Temp 98.0 F 11/30/21 06:25 Pulse 78 11/30/21 06:25 Resp 18 11/30/21 06:25 BP 126/76 11/30/21 06:25 Pulse Ox 95 11/30/21 06:25
[2021-11-30] MEDS: ALUM-MAG HYDROXIDE-SIMETHICONE 200-200-20MG/5ML ORAL LIQD 30 ML PO PRN (21:28)
[2021-12-01] MEDS: ALPRAZolam 0.5 MG TAB PO SCH ×2 (09:23→21:08)
[2021-12-01] MEDS: SERTRALINE 50 MG TAB PO SCH (09:23)
[2021-12-01] MEDS: NICOTINE 7 MG/24 HR PATCH TD SCH (09:23)
--- NOTE | 2021-12-01 11:31 | Progress Note ---
Subjective Date of service: 12/01/21 Principal diagnosis: vascular dementia w/ behavioral disturbance, mood disorder unspecified Subjective Comment: The patient was seen today. He is lying in bed awake. He says he's ready to go and tired of being here. The patient denies SI/HI or hallucinations. He is clear from psych standpoint, but is awaiting placement. The is coordinating his discharge. REVIEW OF SYSTEMS Constitutional: Negative for weight loss ENT: Negative for stridor Respiratory: Negative for cough or hemoptysis All other systems reviewed and are negative MENTAL STATUS EXAMINATION General Appearance and Behavior: Age appropriate, wearing appropriate clothes, cooperative Cooperation: cooperative Psychomotor Behavior: Psychomotor normal Mood: upset Affect and affective range: Euthymic Thought Process: Goal oriented Thought Content: Reality based Speech: Normal volume, Regular rate and rhythm Suicidal Ideation: Denies Homicidal Ideation: Denies Hallucination: Denies Delusions: Denies Impulse Control: Normal Insight and Judgment: Limited Memory: Fair Attention: Attentive Orientation: a/o x 3 ASSESSMENT Vascular dementia with behavioral disturbance Mood disorder, unspecified Treatment Plan Patient admitted for inpatient psychiatric evaluation, medication adjustment and close monitoring The patient's behavior, mood, sleep and appetite will be closely monitored. Patient enrolled in individual and group therapeutic sessions and encouraged to attend. Patient provided with a safe and structured environment. Patient's physical health needs will be addressed by the Hospitalist. Hospitalist Consulted Labs including CBC, CMP, Lipid profile and Hemoglobin A1C levels ordered for baseline reference Social Assessment will be completed and the Precision Honer will work with patient and family to ensure a suitable and safe disposition Medication adjustment will be made as clinically indicated Continue current regimen Usual Wellness Yazidi/Preservation - Trazodone 50 mg po QHS PRN for insomnia - Melatonin 5 mg po QHS to promote circadian rhythm The patient agreed on the treatment plan, understood the risk, benefit, alternative treatment, potential consequence of no treatment, and gave informed consent. Estimated days: 3 Post hospital care: primary care provider, psychiatric provider Case staffed with Dr. Duarte Medications and Allergies Allergies Allergy/AdvReac Type Severity Reaction Status Date / Time gadoteridol [From Prohance] Allergy Unknown Verified 11/16/21 18:43 Home Medications Medication Instructions Recorded Confirmed Last Taken Type ALPRAZolam [Xanax TAB] 0.5 mg PO BID 11/19/21 11/19/21 Unknown History Atorvastatin [Lipitor Tab] 80 mg PO QDAY 11/19/21 11/19/21 Unknown History Sertraline [Zoloft] 25 mg PO QDAY 11/19/21 11/19/21 Unknown History Active Meds: Active Medications Al Hydrox/Mg Hydrox/Simethicone (Alum-Mag Hydroxide-Simethicone [id number]/5ml Oral Liqd 30 Ml) 30 ml PO Q4H PRN PRN Reason: Indigestion Last Admin: 11/30/21 21:28 Dose: 30 ml Alprazolam (Alprazolam 0.5 Mg Tab) 0.5 mg PO BID [facility] Last Admin: 12/01/21 09:23 Dose: 0.5 mg Atorvastatin Calcium (Atorvastatin 40 Mg Tab) 80 mg PO QHS [facility] Last Admin: 11/30/21 21:15 Dose: 80 mg Haloperidol Lactate (Haloperidol Lactate 5 Mg/1 Ml Inj) 5 mg IM Q6H PRN PRN Reason: Agitation Melatonin (Melatonin 5 Mg Tab) 5 mg PO QHS PRN PRN Reason: Sleep Nicotine (Nicotine 7 Mg/24 Hr Patch) 7 mg TD QDAY [facility] Last Admin: 12/01/21 09:23 Dose: Not Given Sertraline HCl (Sertraline 50 Mg Tab) 75 mg PO QDAY [facility] Last Admin: 12/01/21 09:23 Dose: 75 mg Trazodone HCl (Trazodone 50 Mg Tab) 50 mg PO QHS PRN PRN Reason: Sleep Last Admin: 11/29/21 21:20 Dose: 50 mg Results - Results Labs/Vitals: Laboratory Last Values WBC 9.8 K/mm3 (4.5-11.0) 11/19/21 23:14 RBC 3.69 M/mm3 (3.65-5.03) 11/19/21 23:14 Hgb 12.4 gm/dl (11.8-15.2) 11/19/21 23:14 Hct 35.9 % (35.5-45.6) 11/19/21 23:14 MCV 97 fl (84-94) H 11/19/21 23:14 MCH 34 pg (28-32) H 11/19/21 23:14 MCHC 35 % (32-34) H 11/19/21 23:14 RDW 14.7 % (13.2-15.2) 11/19/21 23:14 Plt Count 190 K/mm3 (140-440) 11/19/21 23:14 Baso % (Auto) Security Guards Dispatcher 11/19/21 23:14 Add Manual Diff Complete 11/19/21 23:14 Total Counted 100 11/19/21 23:14 Seg Neuts % (Manual) 50.0 % (40.0-70.0) 11/19/21 23:14 Band Neutrophils % 0 % 11/19/21 23:14 Lymphocytes % (Manual) 34.0 % (13.4-35.0) 11/19/21 23:14 Reactive Lymphs % (Man) 0 % 11/19/21 23:14 Monocytes % (Manual) 12.0 % (0.0-7.3) H 11/19/21 23:14 Eosinophils % (Manual) 4.0 % (0.0-4.3) 11/19/21 23:14 Basophils % (Manual) 0 % (0.0-1.8) 11/19/21 23:14 Metamyelocytes % 0 % 11/19/21 23:14 Myelocytes % 0 % 11/19/21 23:14 Promyelocytes % 0 % 11/19/21 23:14 Blast Cells % 0 % 11/19/21 23:14 Nucleated RBC % Not Reportable 11/19/21 23:14 Seg Neutrophils # Man 4.9 K/mm3 (1.8-7.7) 11/19/21 23:14 Band Neutrophils # 0.0 K/mm3 11/19/21 23:14 Lymphocytes # (Manual) 3.3 K/mm3 (1.2-5.4) 11/19/21 23:14 Abs React Lymphs (Man) 0.0 K/mm3 11/19/21 23:14 Monocytes # (Manual) 1.2 K/mm3 (0.0-0.8) H 11/19/21 23:14 Eosinophils # (Manual) 0.4 K/mm3 (0.0-0.4) 11/19/21 23:14 Basophils # (Manual) 0.0 K/mm3 (0.0-0.1) 11/19/21 23:14 Metamyelocytes # 0.0 K/mm3 11/19/21 23:14 Myelocytes # 0.0 K/mm3 11/19/21 23:14 Promyelocytes # 0.0 K/mm3 11/19/21 23:14 Blast Cells # 0.0 K/mm3 11/19/21 23:14 WBC Morphology Not Reportable 11/19/21 23:14 Hypersegmented Neuts Not Reportable 11/19/21 23:14 Hyposegmented Neuts Not Reportable 11/19/21 23:14 Hypogranular Neuts Not Reportable 11/19/21 23:14 Smudge Cells Not Reportable 11/19/21 23:14 Toxic Granulation Not Reportable 11/19/21 23:14 Toxic Vacuolation Not Reportable 11/19/21 23:14 Dohle Bodies Not Reportable 11/19/21 23:14 Pelger-Huet Anomaly Not Reportable 11/19/21 23:14 Nemesio Rods Not Reportable 11/19/21 23:14 Platelet Estimate Consistent w auto 11/19/21 23:14 Clumped Platelets Not Reportable 11/19/21 23:14 Plt Clumps, EDTA Not Reportable 11/19/21 23:14 Large Platelets Not Reportable 11/19/21 23:14 Giant Platelets Not Reportable 11/19/21 23:14 Platelet Satelliting Not Reportable 11/19/21 23:14 Plt Morphology Comment Not Reportable 11/19/21 23:14 RBC Morphology Not Reportable 11/19/21 23:14 Dimorphic RBCs Not Reportable 11/19/21 23:14 Polychromasia Not Reportable 11/19/21 23:14 Hypochromasia Not Reportable 11/19/21 23:14 Poikilocytosis Not Reportable 11/19/21 23:14 Anisocytosis 1+ 11/19/21 23:14 Microcytosis Not Reportable 11/19/21 23:14 Macrocytosis Not Reportable 11/19/21 23:14 Spherocytes Not Reportable 11/19/21 23:14 Pappenheimer Bodies Not Reportable 11/19/21 23:14 Sickle Cells Not Reportable 11/19/21 23:14 Target Cells Few 11/19/21 23:14 Tear Drop Cells Not Reportable 11/19/21 23:14 Ovalocytes Few 11/19/21 23:14 Helmet Cells Not Reportable 11/19/21 23:14 Burgos-[place]entywood Bodies Not Reportable 11/19/21 23:14 Bruin Rings Not Reportable 11/19/21 23:14 Ferris Cells Not Reportable 11/19/21 23:14 Bite Cells Not Reportable 11/19/21 23:14 Crenated Cell Not Reportable 11/19/21 23:14 Elliptocytes Not Reportable 11/19/21 23:14 Acanthocytes (Spur) Rare 11/19/21 23:14 Rouleaux Not Reportable 11/19/21 23:14 Hemoglobin C Crystals Not Reportable 11/19/21 23:14 Schistocytes Not Reportable 11/19/21 23:14 Malaria parasites Not Reportable 11/19/21 23:14 Haim Bodies Not Reportable 11/19/21 23:14 Hem Pathologist Commnt No 11/19/21 23:14 Sodium 137 mmol/L (137-145) 11/19/21 23:14 Potassium 4.2 mmol/L (3.6-5.0) 11/19/21 23:14 Chloride 102.3 mmol/L (98-107) 11/19/21 23:14 Carbon Dioxide 24 mmol/L (22-30) 11/19/21 23:14 Anion Gap 15 mmol/L 11/19/21 23:14 BUN 19 mg/dL (9-20) 11/19/21 23:14 Creatinine 0.9 mg/dL (0.8-1.3) 11/19/21 23:14 Estimated GFR > 60 ml/min 11/19/21 23:14 BUN/Creatinine Ratio 21 % 11/19/21 23:14 Glucose 103 mg/dL (75-100) H 11/19/21 23:14 Hemoglobin A1c 5.8 % (4-6) 11/19/21 23:14 Calcium 9.2 mg/dL (8.4-10.2) 11/19/21 23:14 Total Bilirubin 0.30 mg/dL (0.1-1.2) 11/19/21 23:14 AST 54 units/L (5-40) H 11/19/21 23:14 ALT 46 units/L (7-56) 11/19/21 23:14 Alkaline Phosphatase 70 units/L (35-129) 11/19/21 23:14 Total Protein 7.0 g/dL (6.3-8.2) 11/19/21 23:14 Albumin 3.6 g/dL (3.9-5) L 11/19/21 23:14 Albumin/Globulin Ratio 1.1 % 11/19/21 23:14 Triglycerides 42 mg/dL (2-149) 11/19/21 23:14 Cholesterol 92 mg/dL (50-199) 11/19/21 23:14 LDL Cholesterol Direct 42 mg/dL (50-130) L 11/19/21 23:14 HDL Cholesterol 48 mg/dL (40-59) 11/19/21 23:14 Cholesterol/HDL Ratio 1.91 % 11/19/21 23:14 TSH 3.150 mlU/mL (0.270-4.200) 11/19/21 23:14 Last Vital Signs Temp 98.0 F 12/01/21 05:50 Pulse 81 12/01/21 05:50 Resp 20 12/01/21 05:50 BP 116/95 12/01/21 05:50 Pulse Ox 95 12/01/21 05:50
[2021-12-02] MEDS: ALPRAZolam 0.5 MG TAB PO SCH ×2 (09:07→21:02)
[2021-12-02] MEDS: SERTRALINE 50 MG TAB PO SCH (09:07)
[2021-12-02] MEDS: NICOTINE 7 MG/24 HR PATCH TD SCH (09:30)
--- NOTE | 2021-12-02 10:45 | Progress Note ---
Assessment and Plan - Patient Problems (1) Vascular dementia with behavioral disturbance Current Visit: Yes Status: Acute Plan to address problem: Verbal prompting, verbal redirection, benzodiazepine therapy as clinically indicated. (2) Cerebral atherosclerosis Current Visit: Yes Status: Acute Plan to address problem: Antiplatelet therapy as clinically indicated, risk factor reduction. (3) Hypertension Current Visit: Yes Status: Acute Qualifiers: Hypertension type: primary hypertension Qualified Code(s): I10 - Essential (primary) hypertension Plan to address problem: Monitor blood pressure every shift, continue medical management. (4) Hyperlipidemia Current Visit: Yes Status: Acute Plan to address problem: Statin therapy, low-cholesterol diet (5) Generalized anxiety disorder Current Visit: Yes Status: Acute Plan to address problem: Benzodiazepine therapy as clinically indicated. (6) Major depression Current Visit: Yes Status: Acute Plan to address problem: Continue medical management, cognitive behavioral therapy. (7) Advance care planning Current Visit: Yes Status: Acute Plan to address problem: Disease education done, care plan discussed, diagnoses discussed, prognosis discussed, patient is full code. Patient acknowledges understanding and agreement with care plan, +30 minutes. (8) Preventative health care Current Visit: Yes Status: Acute Plan to address problem: Patient counseled regarding outpatient follow-up with primary care physician for all age and risk factor appropriate screening test. +30 minutes. History Interval history: 66 YO Male with Vascular Dementia with Behavioral Disturbance, Cerebral Atherosclerosis, HTN, HLD, DESTIN, MDD admitted to [facility] for psychiatric stabilization. Consult placed by Dr. Pal for medical management. Patient seen and evaluated in the recreation room. No reported nursing events. Patient appears to be at baseline level of cognition and function. Hospitalist Physical - Constitutional Vitals: Temp Pulse Resp BP Pulse Ox 98.2 F 84 18 121/87 96 12/01/21 17:32 12/01/21 17:32 12/01/21 17:32 12/01/21 17:32 12/01/21 17:32 General appearance: Present: no acute distress - EENT Eyes: Present: PERRL ENT: hearing decreased - Neck Neck: Present: supple - Respiratory Respiratory effort: normal Respiratory: bilateral: CTA - Cardiovascular Rhythm: regular Heart Sounds: Present: S1 & S2 - Extremities Extremities: no ischemia Peripheral Pulses: within normal limits - Abdominal General gastrointestinal: soft, non-tender, non-distended - Integumentary Integumentary: Present: clear, dry - Psychiatric Psychiatric: cooperative - Neurologic Neurologic: CNII-XII intact Results - Labs CBC & Chem 7: 11/19/21 23:14 11/19/21 23:14 Labs: Laboratory Last Values WBC 9.8 K/mm3 (4.5-11.0) 11/19/21 23:14 RBC 3.69 M/mm3 (3.65-5.03) 11/19/21 23:14 Hgb 12.4 gm/dl (11.8-15.2) 11/19/21 23:14 Hct 35.9 % (35.5-45.6) 11/19/21 23:14 MCV 97 fl (84-94) H 11/19/21 23:14 MCH 34 pg (28-32) H 11/19/21 23:14 MCHC 35 % (32-34) H 11/19/21 23:14 RDW 14.7 % (13.2-15.2) 11/19/21 23:14 Plt Count 190 K/mm3 (140-440) 11/19/21 23:14 Baso % (Auto) Process Engineer 11/19/21 23:14 Add Manual Diff Complete 11/19/21 23:14 Total Counted 100 11/19/21 23:14 Seg Neuts % (Manual) 50.0 % (40.0-70.0) 11/19/21 23:14 Band Neutrophils % 0 % 11/19/21 23:14 Lymphocytes % (Manual) 34.0 % (13.4-35.0) 11/19/21 23:14 Reactive Lymphs % (Man) 0 % 11/19/21 23:14 Monocytes % (Manual) 12.0 % (0.0-7.3) H 11/19/21 23:14 Eosinophils % (Manual) 4.0 % (0.0-4.3) 11/19/21 23:14 Basophils % (Manual) 0 % (0.0-1.8) 11/19/21 23:14 Metamyelocytes % 0 % 11/19/21 23:14 Myelocytes % 0 % 11/19/21 23:14 Promyelocytes % 0 % 11/19/21 23:14 Blast Cells % 0 % 11/19/21 23:14 Nucleated RBC % Not Reportable 11/19/21 23:14 Seg Neutrophils # Man 4.9 K/mm3 (1.8-7.7) 11/19/21 23:14 Band Neutrophils # 0.0 K/mm3 11/19/21 23:14 Lymphocytes # (Manual) 3.3 K/mm3 (1.2-5.4) 11/19/21 23:14 Abs React Lymphs (Man) 0.0 K/mm3 11/19/21 23:14 Monocytes # (Manual) 1.2 K/mm3 (0.0-0.8) H 11/19/21 23:14 Eosinophils # (Manual) 0.4 K/mm3 (0.0-0.4) 11/19/21 23:14 Basophils # (Manual) 0.0 K/mm3 (0.0-0.1) 11/19/21 23:14 Metamyelocytes # 0.0 K/mm3 11/19/21 23:14 Myelocytes # 0.0 K/mm3 11/19/21 23:14 Promyelocytes # 0.0 K/mm3 11/19/21 23:14 Blast Cells # 0.0 K/mm3 11/19/21 23:14 WBC Morphology Not Reportable 11/19/21 23:14 Hypersegmented Neuts Not Reportable 11/19/21 23:14 Hyposegmented Neuts Not Reportable 11/19/21 23:14 Hypogranular Neuts Not Reportable 11/19/21 23:14 Smudge Cells Not Reportable 11/19/21 23:14 Toxic Granulation Not Reportable 11/19/21 23:14 Toxic Vacuolation Not Reportable 11/19/21 23:14 Dohle Bodies Not Reportable 11/19/21 23:14 Pelger-Huet Anomaly Not Reportable 11/19/21 23:14 Nemesio Rods Not Reportable 11/19/21 23:14 Platelet Estimate Consistent w auto 11/19/21 23:14 Clumped Platelets Not Reportable 11/19/21 23:14 Plt Clumps, EDTA Not Reportable 11/19/21 23:14 Large Platelets Not Reportable 11/19/21 23:14 Giant Platelets Not Reportable 11/19/21 23:14 Platelet Satelliting Not Reportable 11/19/21 23:14 Plt Morphology Comment Not Reportable 11/19/21 23:14 RBC Morphology Not Reportable 11/19/21 23:14 Dimorphic RBCs Not Reportable 11/19/21 23:14 Polychromasia Not Reportable 11/19/21 23:14 Hypochromasia Not Reportable 11/19/21 23:14 Poikilocytosis Not Reportable 11/19/21 23:14 Anisocytosis 1+ 11/19/21 23:14 Microcytosis Not Reportable 11/19/21 23:14 Macrocytosis Not Reportable 11/19/21 23:14 Spherocytes Not Reportable 11/19/21 23:14 Pappenheimer Bodies Not Reportable 11/19/21 23:14 Sickle Cells Not Reportable 11/19/21 23:14 Target Cells Few 11/19/21 23:14 Tear Drop Cells Not Reportable 11/19/21 23:14 Ovalocytes Few 11/19/21 23:14 Helmet Cells Not Reportable 11/19/21 23:14 Burgos-Brunson Bodies Not Reportable 11/19/21 23:14 [place] Rings Not Reportable 11/19/21 23:14 [place] Cells Not Reportable 11/19/21 23:14 Bite Cells Not Reportable 11/19/21 23:14 Crenated Cell Not Reportable 11/19/21 23:14 Elliptocytes Not Reportable 11/19/21 23:14 Acanthocytes (Spur) Rare 11/19/21 23:14 Rouleaux Not Reportable 11/19/21 23:14 Hemoglobin C Crystals Not Reportable 11/19/21 23:14 Schistocytes Not Reportable 11/19/21 23:14 Malaria parasites Not Reportable 11/19/21 23:14 Haim Bodies Not Reportable 11/19/21 23:14 Hem Pathologist Commnt No 11/19/21 23:14 Sodium 137 mmol/L (137-145) 11/19/21 23:14 Potassium 4.2 mmol/L (3.6-5.0) 11/19/21 23:14 Chloride 102.3 mmol/L (98-107) 11/19/21 23:14 Carbon Dioxide 24 mmol/L (22-30) 11/19/21 23:14 Anion Gap 15 mmol/L 11/19/21 23:14 BUN 19 mg/dL (9-20) 11/19/21 23:14 Creatinine 0.9 mg/dL (0.8-1.3) 11/19/21 23:14 Estimated GFR > 60 ml/min 11/19/21 23:14 BUN/Creatinine Ratio 21 % 11/19/21 23:14 Glucose 103 mg/dL (75-100) H 11/19/21 23:14 Hemoglobin A1c 5.8 % (4-6) 11/19/21 23:14 Calcium 9.2 mg/dL (8.4-10.2) 11/19/21 23:14 Total Bilirubin 0.30 mg/dL (0.1-1.2) 11/19/21 23:14 AST 54 units/L (5-40) H 11/19/21 23:14 ALT 46 units/L (7-56) 11/19/21 23:14 Alkaline Phosphatase 70 units/L (35-129) 11/19/21 23:14 Total Protein 7.0 g/dL (6.3-8.2) 11/19/21 23:14 Albumin 3.6 g/dL (3.9-5) L 11/19/21 23:14 Albumin/Globulin Ratio 1.1 % 11/19/21 23:14 Triglycerides 42 mg/dL (2-149) 11/19/21 23:14 Cholesterol 92 mg/dL (50-199) 11/19/21 23:14 LDL Cholesterol Direct 42 mg/dL (50-130) L 11/19/21 23:14 HDL Cholesterol 48 mg/dL (40-59) 11/19/21 23:14 Cholesterol/HDL Ratio 1.91 % 11/19/21 23:14 TSH 3.150 mlU/mL (0.270-4.200) 11/19/21 23:14 Pfeiffer/IV: Voiding Method Toilet Active Medications - Current Medications Current Medications: Generic Name Dose Route Start Last Admin Trade Name Freq PRN Reason Stop Dose Admin Al Hydrox/Mg Hydrox/Simethicone 30 ml 11/22/21 17:00 11/30/21 21:28 Alum-Mag Hydroxide-Simethicone [id number]/5ml Oral Liqd 30 Ml PO 30 ml Q4H PRN Administration Indigestion Alprazolam 0.5 mg 11/26/21 22:00 12/02/21 09:07 Alprazolam 0.5 Mg Tab PO 0.5 mg BID DENNY Administration Atorvastatin Calcium 80 mg 11/19/21 22:00 12/01/21 21:08 Atorvastatin 40 Mg Tab PO 80 mg QHS DENNY Administration Haloperidol Lactate 5 mg 11/25/21 11:00 Haloperidol Lactate 5 Mg/1 Ml Inj IM Q6H PRN Agitation Melatonin 5 mg 11/21/21 22:35 Melatonin 5 Mg Tab PO QHS PRN Sleep Nicotine 7 mg 11/26/21 21:00 12/02/21 09:30 Nicotine 7 Mg/24 Hr Patch TD Not Given QDAY DENNY Sertraline HCl 75 mg 11/26/21 10:00 12/02/21 09:07 Sertraline 50 Mg Tab PO 75 mg QDAY DENNY Administration Trazodone HCl 50 mg 11/21/21 22:36 11/29/21 21:20 Trazodone 50 Mg Tab PO 50 mg QHS PRN Administration Sleep Nutrition/Malnutrition Assess - Dietary Evaluation Nutrition/Malnutrition Findings: Nutrition Notes Start: 11/25/21 15:18 Freq: Status: Active Protocol: Document 11/25/21 15:18 CM (Rec: 11/25/21 15:22 CM [id number]) Co-Sign 11/25/21 15:18 WW Nutrition Notes Need for Assessment generated from: LOS Initial or Follow up Assessment Other Pertinent Diagnosis Vascular Dementia Current Diet Regular Diet Labs/Tests 11/25: Reviewed Pertinent Medications 11/25: Atorvasatatin Height 5 ft 11 in Weight 81.641 kg [place] Body Weight (kg) 78.18 BMI 25.1 Intake Prior to Admission Good Weight change and time frame Unsure wt loss COMPUTER APPLICATIONS DEVELOPER per malnutrition screening tool assessment Weight Status Overweight Subjective/Other Information RD consult per LOS protocol. 100% meals consumed during LOS . Physical assessment WNL. No nutritional concerns at this time. Percent of energy/protein needs met: Regular diet provides 2289kcal / 89g PRO q day (108%/100%) Burn Absent Trauma Absent GI Symptoms None Food Allergy No Skin Integrity/Comment WNL Current % PO Good (75-100%) Minimum of two criteria No Fluid Accumulation N/A Reduced Insulator Cutter And Former Strength N/A (non-severe) Protein-Calorie Malnutrition N\A #1 Nutrition Diagnosis No nutrition diagnosis at this time Comments: No nutritional concerns at this time. Is patient on ventilator? No Is Patient Ambulatory and/or Out of Bed Yes [facility] [ 2104.102 [id number]] Calculation Used for Recommendations [facility] Additional Notes Protein 1-1.2g/kg ABW; 82-98g PRO q day Fluid: 30mL/kg ABW or per MD. Nutrition Intervention Change Diet Order: Continue current diet order Goal #1 Pt to consume >75% of estimated energy/protein needs through current diet order. Revisit per MD consult or patient Sign Off request: Additional Comments Monitor need for further nutritional assistance.
--- NOTE | 2021-12-02 12:28 | Progress Note ---
Subjective Date of service: 12/02/21 Principal diagnosis: vascular dementia w/ behavioral disturbance, mood disorder unspecified Subjective Comment: The patient was seen today. He is lying in bed awake. He is calm, and cooperative. He denies SI/HI or hallucinations. He is awaiting placement. REVIEW OF SYSTEMS Constitutional: Negative for weight loss ENT: Negative for stridor Respiratory: Negative for cough or hemoptysis All other systems reviewed and are negative MENTAL STATUS EXAMINATION General Appearance and Behavior: Age appropriate, wearing appropriate clothes, cooperative Cooperation: cooperative Psychomotor Behavior: Psychomotor normal Mood: upset Affect and affective range: Euthymic Thought Process: Goal oriented Thought Content: Reality based Speech: Normal volume, Regular rate and rhythm Suicidal Ideation: Denies Homicidal Ideation: Denies Hallucination: Denies Delusions: Denies Impulse Control: Normal Insight and Judgment: Limited Memory: Fair Attention: Attentive Orientation: a/o x 3 ASSESSMENT Vascular dementia with behavioral disturbance Mood disorder, unspecified Treatment Plan Patient admitted for inpatient psychiatric evaluation, medication adjustment and close monitoring The patient's behavior, mood, sleep and appetite will be closely monitored. Patient enrolled in individual and group therapeutic sessions and encouraged to attend. Patient provided with a safe and structured environment. Patient's physical health needs will be addressed by the Hospitalist. Hospitalist Consulted Labs including CBC, CMP, Lipid profile and Hemoglobin A1C levels ordered for baseline reference Social Assessment will be completed and the Trench Digger Helper will work with patient and family to ensure a suitable and safe disposition Medication adjustment will be made as clinically indicated Continue current regimen Usual Wellness Episcopal/Preservation - Trazodone 50 mg po QHS PRN for insomnia - Melatonin 5 mg po QHS to promote circadian rhythm The patient agreed on the treatment plan, understood the risk, benefit, alternative treatment, potential consequence of no treatment, and gave informed consent. Estimated days: 3 Post hospital care: primary care provider, psychiatric provider Case staffed with Dr. Duarte Medications and Allergies Allergies Allergy/AdvReac Type Severity Reaction Status Date / Time gadoteridol [From Prohance] Allergy Unknown Verified 11/16/21 18:43 Home Medications Medication Instructions Recorded Confirmed Last Taken Type ALPRAZolam [Xanax TAB] 0.5 mg PO BID 11/19/21 11/19/21 Unknown History Atorvastatin [Lipitor Tab] 80 mg PO QDAY 11/19/21 11/19/21 Unknown History Sertraline [Zoloft] 25 mg PO QDAY 11/19/21 11/19/21 Unknown History Active Meds: Active Medications Al Hydrox/Mg Hydrox/Simethicone (Alum-Mag Hydroxide-Simethicone [id number]/5ml Oral Liqd 30 Ml) 30 ml PO Q4H PRN PRN Reason: Indigestion Last Admin: 11/30/21 21:28 Dose: 30 ml Alprazolam (Alprazolam 0.5 Mg Tab) 0.5 mg PO BID [facility] Last Admin: 12/02/21 09:07 Dose: 0.5 mg Atorvastatin Calcium (Atorvastatin 40 Mg Tab) 80 mg PO QHS [facility] Last Admin: 12/01/21 21:08 Dose: 80 mg Haloperidol Lactate (Haloperidol Lactate 5 Mg/1 Ml Inj) 5 mg IM Q6H PRN PRN Reason: Agitation Melatonin (Melatonin 5 Mg Tab) 5 mg PO QHS PRN PRN Reason: Sleep Nicotine (Nicotine 7 Mg/24 Hr Patch) 7 mg TD QDAY [facility] Last Admin: 12/02/21 09:30 Dose: Not Given Sertraline HCl (Sertraline 50 Mg Tab) 75 mg PO QDAY [facility] Last Admin: 12/02/21 09:07 Dose: 75 mg Trazodone HCl (Trazodone 50 Mg Tab) 50 mg PO QHS PRN PRN Reason: Sleep Last Admin: 11/29/21 21:20 Dose: 50 mg Results - Results Labs/Vitals: Laboratory Last Values WBC 9.8 K/mm3 (4.5-11.0) 11/19/21 23:14 RBC 3.69 M/mm3 (3.65-5.03) 11/19/21 23:14 Hgb 12.4 gm/dl (11.8-15.2) 11/19/21 23:14 Hct 35.9 % (35.5-45.6) 11/19/21 23:14 MCV 97 fl (84-94) H 11/19/21 23:14 MCH 34 pg (28-32) H 11/19/21 23:14 MCHC 35 % (32-34) H 11/19/21 23:14 RDW 14.7 % (13.2-15.2) 11/19/21 23:14 Plt Count 190 K/mm3 (140-440) 11/19/21 23:14 Baso % (Auto) Application Support Manager 11/19/21 23:14 Add Manual Diff Complete 11/19/21 23:14 Total Counted 100 11/19/21 23:14 Seg Neuts % (Manual) 50.0 % (40.0-70.0) 11/19/21 23:14 Band Neutrophils % 0 % 11/19/21 23:14 Lymphocytes % (Manual) 34.0 % (13.4-35.0) 11/19/21 23:14 Reactive Lymphs % (Man) 0 % 11/19/21 23:14 Monocytes % (Manual) 12.0 % (0.0-7.3) H 11/19/21 23:14 Eosinophils % (Manual) 4.0 % (0.0-4.3) 11/19/21 23:14 Basophils % (Manual) 0 % (0.0-1.8) 11/19/21 23:14 Metamyelocytes % 0 % 11/19/21 23:14 Myelocytes % 0 % 11/19/21 23:14 Promyelocytes % 0 % 11/19/21 23:14 Blast Cells % 0 % 11/19/21 23:14 Nucleated RBC % Not Reportable 11/19/21 23:14 Seg Neutrophils # Man 4.9 K/mm3 (1.8-7.7) 11/19/21 23:14 Band Neutrophils # 0.0 K/mm3 11/19/21 23:14 Lymphocytes # (Manual) 3.3 K/mm3 (1.2-5.4) 11/19/21 23:14 Abs React Lymphs (Man) 0.0 K/mm3 11/19/21 23:14 Monocytes # (Manual) 1.2 K/mm3 (0.0-0.8) H 11/19/21 23:14 Eosinophils # (Manual) 0.4 K/mm3 (0.0-0.4) 11/19/21 23:14 Basophils # (Manual) 0.0 K/mm3 (0.0-0.1) 11/19/21 23:14 Metamyelocytes # 0.0 K/mm3 11/19/21 23:14 Myelocytes # 0.0 K/mm3 11/19/21 23:14 Promyelocytes # 0.0 K/mm3 11/19/21 23:14 Blast Cells # 0.0 K/mm3 11/19/21 23:14 WBC Morphology Not Reportable 11/19/21 23:14 Hypersegmented Neuts Not Reportable 11/19/21 23:14 Hyposegmented Neuts Not Reportable 11/19/21 23:14 Hypogranular Neuts Not Reportable 11/19/21 23:14 Smudge Cells Not Reportable 11/19/21 23:14 Toxic Granulation Not Reportable 11/19/21 23:14 Toxic Vacuolation Not Reportable 11/19/21 23:14 Dohle Bodies Not Reportable 11/19/21 23:14 Pelger-Huet Anomaly Not Reportable 11/19/21 23:14 Nemesio Rods Not Reportable 11/19/21 23:14 Platelet Estimate Consistent w auto 11/19/21 23:14 Clumped Platelets Not Reportable 11/19/21 23:14 Plt Clumps, EDTA Not Reportable 11/19/21 23:14 Large Platelets Not Reportable 11/19/21 23:14 Giant Platelets Not Reportable 11/19/21 23:14 Platelet Satelliting Not Reportable 11/19/21 23:14 Plt Morphology Comment Not Reportable 11/19/21 23:14 RBC Morphology Not Reportable 11/19/21 23:14 Dimorphic RBCs Not Reportable 11/19/21 23:14 Polychromasia Not Reportable 11/19/21 23:14 Hypochromasia Not Reportable 11/19/21 23:14 Poikilocytosis Not Reportable 11/19/21 23:14 Anisocytosis 1+ 11/19/21 23:14 Microcytosis Not Reportable 11/19/21 23:14 Macrocytosis Not Reportable 11/19/21 23:14 Spherocytes Not Reportable 11/19/21 23:14 Pappenheimer Bodies Not Reportable 11/19/21 23:14 Sickle Cells Not Reportable 11/19/21 23:14 Target Cells Few 11/19/21 23:14 Tear Drop Cells Not Reportable 11/19/21 23:14 Ovalocytes Few 11/19/21 23:14 Helmet Cells Not Reportable 11/19/21 23:14 Burgos-Bremond Bodies Not Reportable 11/19/21 23:14 [place] Rings Not Reportable 11/19/21 23:14 [place] Cells Not Reportable 11/19/21 23:14 Bite Cells Not Reportable 11/19/21 23:14 Crenated Cell Not Reportable 11/19/21 23:14 Elliptocytes Not Reportable 11/19/21 23:14 Acanthocytes (Spur) Rare 11/19/21 23:14 Rouleaux Not Reportable 11/19/21 23:14 Hemoglobin C Crystals Not Reportable 11/19/21 23:14 Schistocytes Not Reportable 11/19/21 23:14 Malaria parasites Not Reportable 11/19/21 23:14 Haim Bodies Not Reportable 11/19/21 23:14 Hem Pathologist Commnt No 11/19/21 23:14 Sodium 137 mmol/L (137-145) 11/19/21 23:14 Potassium 4.2 mmol/L (3.6-5.0) 11/19/21 23:14 Chloride 102.3 mmol/L (98-107) 11/19/21 23:14 Carbon Dioxide 24 mmol/L (22-30) 11/19/21 23:14 Anion Gap 15 mmol/L 11/19/21 23:14 BUN 19 mg/dL (9-20) 11/19/21 23:14 Creatinine 0.9 mg/dL (0.8-1.3) 11/19/21 23:14 Estimated GFR > 60 ml/min 11/19/21 23:14 BUN/Creatinine Ratio 21 % 11/19/21 23:14 Glucose 103 mg/dL (75-100) H 11/19/21 23:14 Hemoglobin A1c 5.8 % (4-6) 11/19/21 23:14 Calcium 9.2 mg/dL (8.4-10.2) 11/19/21 23:14 Total Bilirubin 0.30 mg/dL (0.1-1.2) 11/19/21 23:14 AST 54 units/L (5-40) H 11/19/21 23:14 ALT 46 units/L (7-56) 11/19/21 23:14 Alkaline Phosphatase 70 units/L (35-129) 11/19/21 23:14 Total Protein 7.0 g/dL (6.3-8.2) 11/19/21 23:14 Albumin 3.6 g/dL (3.9-5) L 11/19/21 23:14 Albumin/Globulin Ratio 1.1 % 11/19/21 23:14 Triglycerides 42 mg/dL (2-149) 11/19/21 23:14 Cholesterol 92 mg/dL (50-199) 11/19/21 23:14 LDL Cholesterol Direct 42 mg/dL (50-130) L 11/19/21 23:14 HDL Cholesterol 48 mg/dL (40-59) 11/19/21 23:14 Cholesterol/HDL Ratio 1.91 % 11/19/21 23:14 TSH 3.150 mlU/mL (0.270-4.200) 11/19/21 23:14 Last Vital Signs Temp 98.2 F 12/01/21 17:32 Pulse 84 12/01/21 17:32 Resp 18 12/01/21 17:32 BP 121/87 12/01/21 17:32 Pulse Ox 96 12/01/21 17:32
[2021-12-02] MEDS: traZODone 50 MG TAB PO PRN (21:02)
--- NOTE | 2021-12-03 10:52 | Progress Note ---
Subjective Date of service: 12/03/21 Principal diagnosis: vascular dementia w/ behavioral disturbance, mood disorder unspecified Subjective Comment: The patient was seen today. He is sitting on side of the bed. He is calm, and cooperative. He denies SI/HI or hallucinations. He is awaiting placement. REVIEW OF SYSTEMS Constitutional: Negative for weight loss ENT: Negative for stridor Respiratory: Negative for cough or hemoptysis All other systems reviewed and are negative MENTAL STATUS EXAMINATION General Appearance and Behavior: Age appropriate, wearing appropriate clothes, cooperative Cooperation: cooperative Psychomotor Behavior: Psychomotor normal Mood: upset Affect and affective range: Euthymic Thought Process: Goal oriented Thought Content: Reality based Speech: Normal volume, Regular rate and rhythm Suicidal Ideation: Denies Homicidal Ideation: Denies Hallucination: Denies Delusions: Denies Impulse Control: Normal Insight and Judgment: Limited Memory: Fair Attention: Attentive Orientation: a/o x 3 ASSESSMENT Vascular dementia with behavioral disturbance Mood disorder, unspecified Treatment Plan Patient admitted for inpatient psychiatric evaluation, medication adjustment and close monitoring The patient's behavior, mood, sleep and appetite will be closely monitored. Patient enrolled in individual and group therapeutic sessions and encouraged to attend. Patient provided with a safe and structured environment. Patient's physical health needs will be addressed by the Hospitalist. Hospitalist Consulted Labs including CBC, CMP, Lipid profile and Hemoglobin A1C levels ordered for baseline reference Social Assessment will be completed and the Rn Cardiovascular Icu will work with patient and family to ensure a suitable and safe disposition Medication adjustment will be made as clinically indicated Continue current regimen Usual Wellness Yazidi/Preservation - Trazodone 50 mg po QHS PRN for insomnia - Melatonin 5 mg po QHS to promote circadian rhythm The patient agreed on the treatment plan, understood the risk, benefit, alternative treatment, potential consequence of no treatment, and gave informed consent. Estimated days: 3 Post hospital care: primary care provider, psychiatric provider Case staffed with Dr. Duarte Medications and Allergies Allergies Allergy/AdvReac Type Severity Reaction Status Date / Time gadoteridol [From Prohance] Allergy Unknown Verified 11/16/21 18:43 Home Medications Medication Instructions Recorded Confirmed Last Taken Type ALPRAZolam [Xanax TAB] 0.5 mg PO BID 11/19/21 11/19/21 Unknown History Atorvastatin [Lipitor Tab] 80 mg PO QDAY 11/19/21 11/19/21 Unknown History Sertraline [Zoloft] 25 mg PO QDAY 11/19/21 11/19/21 Unknown History Active Meds: Active Medications Al Hydrox/Mg Hydrox/Simethicone (Alum-Mag Hydroxide-Simethicone 439-010-26jw/5ml Oral Liqd 30 Ml) 30 ml PO Q4H PRN PRN Reason: Indigestion Last Admin: 11/30/21 21:28 Dose: 30 ml Alprazolam (Alprazolam 0.5 Mg Tab) 0.5 mg PO BID [facility] Last Admin: 12/02/21 21:02 Dose: 0.5 mg Atorvastatin Calcium (Atorvastatin 40 Mg Tab) 80 mg PO QHS [facility] Last Admin: 12/02/21 21:02 Dose: 80 mg Haloperidol Lactate (Haloperidol Lactate 5 Mg/1 Ml Inj) 5 mg IM Q6H PRN PRN Reason: Agitation Melatonin (Melatonin 5 Mg Tab) 5 mg PO QHS PRN PRN Reason: Sleep Nicotine (Nicotine 7 Mg/24 Hr Patch) 7 mg TD QDAY [facility] Last Admin: 12/02/21 09:30 Dose: Not Given Sertraline HCl (Sertraline 50 Mg Tab) 75 mg PO QDAY [facility] Last Admin: 12/02/21 09:07 Dose: 75 mg Trazodone HCl (Trazodone 50 Mg Tab) 50 mg PO QHS PRN PRN Reason: Sleep Last Admin: 12/02/21 21:02 Dose: 50 mg Results - Results Labs/Vitals: Laboratory Last Values WBC 9.8 K/mm3 (4.5-11.0) 11/19/21 23:14 RBC 3.69 M/mm3 (3.65-5.03) 11/19/21 23:14 Hgb 12.4 gm/dl (11.8-15.2) 11/19/21 23:14 Hct 35.9 % (35.5-45.6) 11/19/21 23:14 MCV 97 fl (84-94) H 11/19/21 23:14 MCH 34 pg (28-32) H 11/19/21 23:14 MCHC 35 % (32-34) H 11/19/21 23:14 RDW 14.7 % (13.2-15.2) 11/19/21 23:14 Plt Count 190 K/mm3 (140-440) 11/19/21 23:14 Baso % (Auto) Bus Person 11/19/21 23:14 Add Manual Diff Complete 11/19/21 23:14 Total Counted 100 11/19/21 23:14 Seg Neuts % (Manual) 50.0 % (40.0-70.0) 11/19/21 23:14 Band Neutrophils % 0 % 11/19/21 23:14 Lymphocytes % (Manual) 34.0 % (13.4-35.0) 11/19/21 23:14 Reactive Lymphs % (Man) 0 % 11/19/21 23:14 Monocytes % (Manual) 12.0 % (0.0-7.3) H 11/19/21 23:14 Eosinophils % (Manual) 4.0 % (0.0-4.3) 11/19/21 23:14 Basophils % (Manual) 0 % (0.0-1.8) 11/19/21 23:14 Metamyelocytes % 0 % 11/19/21 23:14 Myelocytes % 0 % 11/19/21 23:14 Promyelocytes % 0 % 11/19/21 23:14 Blast Cells % 0 % 11/19/21 23:14 Nucleated RBC % Not Reportable 11/19/21 23:14 Seg Neutrophils # Man 4.9 K/mm3 (1.8-7.7) 11/19/21 23:14 Band Neutrophils # 0.0 K/mm3 11/19/21 23:14 Lymphocytes # (Manual) 3.3 K/mm3 (1.2-5.4) 11/19/21 23:14 Abs React Lymphs (Man) 0.0 K/mm3 11/19/21 23:14 Monocytes # (Manual) 1.2 K/mm3 (0.0-0.8) H 11/19/21 23:14 Eosinophils # (Manual) 0.4 K/mm3 (0.0-0.4) 11/19/21 23:14 Basophils # (Manual) 0.0 K/mm3 (0.0-0.1) 11/19/21 23:14 Metamyelocytes # 0.0 K/mm3 11/19/21 23:14 Myelocytes # 0.0 K/mm3 11/19/21 23:14 Promyelocytes # 0.0 K/mm3 11/19/21 23:14 Blast Cells # 0.0 K/mm3 11/19/21 23:14 WBC Morphology Not Reportable 11/19/21 23:14 Hypersegmented Neuts Not Reportable 11/19/21 23:14 Hyposegmented Neuts Not Reportable 11/19/21 23:14 Hypogranular Neuts Not Reportable 11/19/21 23:14 Smudge Cells Not Reportable 11/19/21 23:14 Toxic Granulation Not Reportable 11/19/21 23:14 Toxic Vacuolation Not Reportable 11/19/21 23:14 Dohle Bodies Not Reportable 11/19/21 23:14 Pelger-Huet Anomaly Not Reportable 11/19/21 23:14 Nemesio Rods Not Reportable 11/19/21 23:14 Platelet Estimate Consistent w auto 11/19/21 23:14 Clumped Platelets Not Reportable 11/19/21 23:14 Plt Clumps, EDTA Not Reportable 11/19/21 23:14 Large Platelets Not Reportable 11/19/21 23:14 Giant Platelets Not Reportable 11/19/21 23:14 Platelet Satelliting Not Reportable 11/19/21 23:14 Plt Morphology Comment Not Reportable 11/19/21 23:14 RBC Morphology Not Reportable 11/19/21 23:14 Dimorphic RBCs Not Reportable 11/19/21 23:14 Polychromasia Not Reportable 11/19/21 23:14 Hypochromasia Not Reportable 11/19/21 23:14 Poikilocytosis Not Reportable 11/19/21 23:14 Anisocytosis 1+ 11/19/21 23:14 Microcytosis Not Reportable 11/19/21 23:14 Macrocytosis Not Reportable 11/19/21 23:14 Spherocytes Not Reportable 11/19/21 23:14 Pappenheimer Bodies Not Reportable 11/19/21 23:14 Sickle Cells Not Reportable 11/19/21 23:14 Target Cells Few 11/19/21 23:14 Tear Drop Cells Not Reportable 11/19/21 23:14 Ovalocytes Few 11/19/21 23:14 Helmet Cells Not Reportable 11/19/21 23:14 [place] Bodies Not Reportable 11/19/21 23:14 [place] Rings Not Reportable 11/19/21 23:14 Ryan Cells Not Reportable 11/19/21 23:14 Bite Cells Not Reportable 11/19/21 23:14 Crenated Cell Not Reportable 11/19/21 23:14 Elliptocytes Not Reportable 11/19/21 23:14 Acanthocytes (Spur) Rare 11/19/21 23:14 Rouleaux Not Reportable 11/19/21 23:14 Hemoglobin C Crystals Not Reportable 11/19/21 23:14 Schistocytes Not Reportable 11/19/21 23:14 Malaria parasites Not Reportable 11/19/21 23:14 Haim Bodies Not Reportable 11/19/21 23:14 Hem Pathologist Commnt No 11/19/21 23:14 Sodium 137 mmol/L (137-145) 11/19/21 23:14 Potassium 4.2 mmol/L (3.6-5.0) 11/19/21 23:14 Chloride 102.3 mmol/L (98-107) 11/19/21 23:14 Carbon Dioxide 24 mmol/L (22-30) 11/19/21 23:14 Anion Gap 15 mmol/L 11/19/21 23:14 BUN 19 mg/dL (9-20) 11/19/21 23:14 Creatinine 0.9 mg/dL (0.8-1.3) 11/19/21 23:14 Estimated GFR > 60 ml/min 11/19/21 23:14 BUN/Creatinine Ratio 21 % 11/19/21 23:14 Glucose 103 mg/dL (75-100) H 11/19/21 23:14 Hemoglobin A1c 5.8 % (4-6) 11/19/21 23:14 Calcium 9.2 mg/dL (8.4-10.2) 11/19/21 23:14 Total Bilirubin 0.30 mg/dL (0.1-1.2) 11/19/21 23:14 AST 54 units/L (5-40) H 11/19/21 23:14 ALT 46 units/L (7-56) 11/19/21 23:14 Alkaline Phosphatase 70 units/L (35-129) 11/19/21 23:14 Total Protein 7.0 g/dL (6.3-8.2) 11/19/21 23:14 Albumin 3.6 g/dL (3.9-5) L 11/19/21 23:14 Albumin/Globulin Ratio 1.1 % 11/19/21 23:14 Triglycerides 42 mg/dL (2-149) 11/19/21 23:14 Cholesterol 92 mg/dL (50-199) 11/19/21 23:14 LDL Cholesterol Direct 42 mg/dL (50-130) L 11/19/21 23:14 HDL Cholesterol 48 mg/dL (40-59) 11/19/21 23:14 Cholesterol/HDL Ratio 1.91 % 11/19/21 23:14 TSH 3.150 mlU/mL (0.270-4.200) 11/19/21 23:14 Last Vital Signs Temp 98.3 F 12/02/21 18:14 Pulse 64 12/02/21 18:14 Resp 16 12/02/21 18:14 BP 131/81 12/02/21 18:14 Pulse Ox 97 12/02/21 18:14
--- NOTE | 2021-12-03 10:53 | Progress Note ---
Assessment and Plan - Patient Problems (1) Vascular dementia with behavioral disturbance Current Visit: Yes Status: Acute Plan to address problem: Verbal prompting, verbal redirection, benzodiazepine therapy as clinically indicated. (2) Cerebral atherosclerosis Current Visit: Yes Status: Acute Plan to address problem: Antiplatelet therapy as clinically indicated, risk factor reduction. (3) Hypertension Current Visit: Yes Status: Acute Qualifiers: Qualified Code(s): I10 - Essential (primary) hypertension Plan to address problem: Monitor blood pressure every shift, continue medical management. (4) Hyperlipidemia Current Visit: Yes Status: Acute Plan to address problem: Statin therapy, low-cholesterol diet (5) Generalized anxiety disorder Current Visit: Yes Status: Acute Plan to address problem: Benzodiazepine therapy as clinically indicated. (6) Major depression Current Visit: Yes Status: Acute Plan to address problem: Continue medical management, cognitive behavioral therapy. (7) Advance care planning Current Visit: Yes Status: Acute Plan to address problem: Disease education done, care plan discussed, diagnoses discussed, prognosis discussed, patient is full code. Patient acknowledges understanding and agreement with care plan, +30 minutes. (8) Preventative health care Current Visit: Yes Status: Acute Plan to address problem: Patient counseled regarding outpatient follow-up with primary care physician for all age and risk factor appropriate screening test. +30 minutes. History Interval history: 66 YO Male with Vascular Dementia with Behavioral Disturbance, Cerebral Atherosclerosis, HTN, HLD, DESTIN, MDD admitted to [facility] for psychiatric stabilization. Consult placed by Dr. Pal for medical management. Patient seen and evaluated in the recreation room. No reported nursing events. Patient appears to be at baseline level of cognition and function. Hospitalist Physical - Constitutional Vitals: Temp Pulse Resp BP Pulse Ox 98.3 F 64 16 131/81 97 12/02/21 18:14 12/02/21 18:14 12/02/21 18:14 12/02/21 18:14 12/02/21 18:14 General appearance: Present: no acute distress - EENT Eyes: Present: PERRL ENT: hearing decreased - Neck Neck: Present: supple - Respiratory Respiratory effort: normal Respiratory: bilateral: CTA - Cardiovascular Rhythm: regular Heart Sounds: Present: S1 & S2 - Extremities Extremities: no ischemia Peripheral Pulses: within normal limits - Abdominal General gastrointestinal: soft, non-tender, non-distended - Integumentary Integumentary: Present: clear, dry - Psychiatric Psychiatric: cooperative - Neurologic Neurologic: CNII-XII intact Results - Labs CBC & Chem 7: 11/19/21 23:14 11/19/21 23:14 Labs: Laboratory Last Values WBC 9.8 K/mm3 (4.5-11.0) 11/19/21 23:14 RBC 3.69 M/mm3 (3.65-5.03) 11/19/21 23:14 Hgb 12.4 gm/dl (11.8-15.2) 11/19/21 23:14 Hct 35.9 % (35.5-45.6) 11/19/21 23:14 MCV 97 fl (84-94) H 11/19/21 23:14 MCH 34 pg (28-32) H 11/19/21 23:14 MCHC 35 % (32-34) H 11/19/21 23:14 RDW 14.7 % (13.2-15.2) 11/19/21 23:14 Plt Count 190 K/mm3 (140-440) 11/19/21 23:14 Baso % (Auto) Security Tester 11/19/21 23:14 Add Manual Diff Complete 11/19/21 23:14 Total Counted 100 11/19/21 23:14 Seg Neuts % (Manual) 50.0 % (40.0-70.0) 11/19/21 23:14 Band Neutrophils % 0 % 11/19/21 23:14 Lymphocytes % (Manual) 34.0 % (13.4-35.0) 11/19/21 23:14 Reactive Lymphs % (Man) 0 % 11/19/21 23:14 Monocytes % (Manual) 12.0 % (0.0-7.3) H 11/19/21 23:14 Eosinophils % (Manual) 4.0 % (0.0-4.3) 11/19/21 23:14 Basophils % (Manual) 0 % (0.0-1.8) 11/19/21 23:14 Metamyelocytes % 0 % 11/19/21 23:14 Myelocytes % 0 % 11/19/21 23:14 Promyelocytes % 0 % 11/19/21 23:14 Blast Cells % 0 % 11/19/21 23:14 Nucleated RBC % Not Reportable 11/19/21 23:14 Seg Neutrophils # Man 4.9 K/mm3 (1.8-7.7) 11/19/21 23:14 Band Neutrophils # 0.0 K/mm3 11/19/21 23:14 Lymphocytes # (Manual) 3.3 K/mm3 (1.2-5.4) 11/19/21 23:14 Abs React Lymphs (Man) 0.0 K/mm3 11/19/21 23:14 Monocytes # (Manual) 1.2 K/mm3 (0.0-0.8) H 11/19/21 23:14 Eosinophils # (Manual) 0.4 K/mm3 (0.0-0.4) 11/19/21 23:14 Basophils # (Manual) 0.0 K/mm3 (0.0-0.1) 11/19/21 23:14 Metamyelocytes # 0.0 K/mm3 11/19/21 23:14 Myelocytes # 0.0 K/mm3 11/19/21 23:14 Promyelocytes # 0.0 K/mm3 11/19/21 23:14 Blast Cells # 0.0 K/mm3 11/19/21 23:14 WBC Morphology Not Reportable 11/19/21 23:14 Hypersegmented Neuts Not Reportable 11/19/21 23:14 Hyposegmented Neuts Not Reportable 11/19/21 23:14 Hypogranular Neuts Not Reportable 11/19/21 23:14 Smudge Cells Not Reportable 11/19/21 23:14 Toxic Granulation Not Reportable 11/19/21 23:14 Toxic Vacuolation Not Reportable 11/19/21 23:14 Dohle Bodies Not Reportable 11/19/21 23:14 Pelger-Huet Anomaly Not Reportable 11/19/21 23:14 Nemesio Rods Not Reportable 11/19/21 23:14 Platelet Estimate Consistent w auto 11/19/21 23:14 Clumped Platelets Not Reportable 11/19/21 23:14 Plt Clumps, EDTA Not Reportable 11/19/21 23:14 Large Platelets Not Reportable 11/19/21 23:14 Giant Platelets Not Reportable 11/19/21 23:14 Platelet Satelliting Not Reportable 11/19/21 23:14 Plt Morphology Comment Not Reportable 11/19/21 23:14 RBC Morphology Not Reportable 11/19/21 23:14 Dimorphic RBCs Not Reportable 11/19/21 23:14 Polychromasia Not Reportable 11/19/21 23:14 Hypochromasia Not Reportable 11/19/21 23:14 Poikilocytosis Not Reportable 11/19/21 23:14 Anisocytosis 1+ 11/19/21 23:14 Microcytosis Not Reportable 11/19/21 23:14 Macrocytosis Not Reportable 11/19/21 23:14 Spherocytes Not Reportable 11/19/21 23:14 Pappenheimer Bodies Not Reportable 11/19/21 23:14 Sickle Cells Not Reportable 11/19/21 23:14 Target Cells Few 11/19/21 23:14 Tear Drop Cells Not Reportable 11/19/21 23:14 Ovalocytes Few 11/19/21 23:14 Helmet Cells Not Reportable 11/19/21 23:14 [place] Bodies Not Reportable 11/19/21 23:14 [place] Rings Not Reportable 11/19/21 23:14 Ryan Cells Not Reportable 11/19/21 23:14 Bite Cells Not Reportable 11/19/21 23:14 Crenated Cell Not Reportable 11/19/21 23:14 Elliptocytes Not Reportable 11/19/21 23:14 Acanthocytes (Spur) Rare 11/19/21 23:14 Rouleaux Not Reportable 11/19/21 23:14 Hemoglobin C Crystals Not Reportable 11/19/21 23:14 Schistocytes Not Reportable 11/19/21 23:14 Malaria parasites Not Reportable 11/19/21 23:14 Haim Bodies Not Reportable 11/19/21 23:14 Hem Pathologist Commnt No 11/19/21 23:14 Sodium 137 mmol/L (137-145) 11/19/21 23:14 Potassium 4.2 mmol/L (3.6-5.0) 11/19/21 23:14 Chloride 102.3 mmol/L (98-107) 11/19/21 23:14 Carbon Dioxide 24 mmol/L (22-30) 11/19/21 23:14 Anion Gap 15 mmol/L 11/19/21 23:14 BUN 19 mg/dL (9-20) 11/19/21 23:14 Creatinine 0.9 mg/dL (0.8-1.3) 11/19/21 23:14 Estimated GFR > 60 ml/min 11/19/21 23:14 BUN/Creatinine Ratio 21 % 11/19/21 23:14 Glucose 103 mg/dL (75-100) H 11/19/21 23:14 Hemoglobin A1c 5.8 % (4-6) 11/19/21 23:14 Calcium 9.2 mg/dL (8.4-10.2) 11/19/21 23:14 Total Bilirubin 0.30 mg/dL (0.1-1.2) 11/19/21 23:14 AST 54 units/L (5-40) H 11/19/21 23:14 ALT 46 units/L (7-56) 11/19/21 23:14 Alkaline Phosphatase 70 units/L (35-129) 11/19/21 23:14 Total Protein 7.0 g/dL (6.3-8.2) 11/19/21 23:14 Albumin 3.6 g/dL (3.9-5) L 11/19/21 23:14 Albumin/Globulin Ratio 1.1 % 11/19/21 23:14 Triglycerides 42 mg/dL (2-149) 11/19/21 23:14 Cholesterol 92 mg/dL (50-199) 11/19/21 23:14 LDL Cholesterol Direct 42 mg/dL (50-130) L 11/19/21 23:14 HDL Cholesterol 48 mg/dL (40-59) 11/19/21 23:14 Cholesterol/HDL Ratio 1.91 % 11/19/21 23:14 TSH 3.150 mlU/mL (0.270-4.200) 11/19/21 23:14 Pfeiffer/IV: Voiding Method Incontinent Active Medications - Current Medications Current Medications: Generic Name Dose Route Start Last Admin Trade Name Freq PRN Reason Stop Dose Admin Al Hydrox/Mg Hydrox/Simethicone 30 ml 11/22/21 17:00 11/30/21 21:28 Alum-Mag Hydroxide-Simethicone [id number]/5ml Oral Liqd 30 Ml PO 30 ml Q4H PRN Administration Indigestion Alprazolam 0.5 mg 11/26/21 22:00 12/02/21 21:02 Alprazolam 0.5 Mg Tab PO 0.5 mg BID DENNY Administration Atorvastatin Calcium 80 mg 11/19/21 22:00 12/02/21 21:02 Atorvastatin 40 Mg Tab PO 80 mg QHS DENNY Administration Haloperidol Lactate 5 mg 11/25/21 11:00 Haloperidol Lactate 5 Mg/1 Ml Inj IM Q6H PRN Agitation Melatonin 5 mg 11/21/21 22:35 Melatonin 5 Mg Tab PO QHS PRN Sleep Nicotine 7 mg 11/26/21 21:00 12/02/21 09:30 Nicotine 7 Mg/24 Hr Patch TD Not Given QDAY DENNY Sertraline HCl 75 mg 11/26/21 10:00 12/02/21 09:07 Sertraline 50 Mg Tab PO 75 mg QDAY DENNY Administration Trazodone HCl 50 mg 11/21/21 22:36 12/02/21 21:02 Trazodone 50 Mg Tab PO 50 mg QHS PRN Administration Sleep Nutrition/Malnutrition Assess - Dietary Evaluation Nutrition/Malnutrition Findings: Nutrition Notes Start: 11/25/21 15:18 Freq: Status: Active Protocol: Document 11/25/21 15:18 CM (Rec: 11/25/21 15:22 CM [id number]) Co-Sign 11/25/21 15:18 WW Nutrition Notes Need for Assessment generated from: LOS Initial or Follow up Assessment Other Pertinent Diagnosis Vascular Dementia Current Diet Regular Diet Labs/Tests 11/25: Reviewed Pertinent Medications 11/25: Atorvasatatin Height 5 ft 11 in Weight 81.641 kg [place] Body Weight (kg) 78.18 BMI 25.1 Intake Prior to Admission Good Weight change and time frame 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 100% meals consumed during LOS . Physical assessment WNL. No nutritional concerns at this time. Percent of energy/protein needs met: Regular diet provides 2289kcal / 89g PRO q day (108%/100%) Burn Absent Trauma Absent GI Symptoms None Food Allergy No Skin Integrity/Comment WNL Current % PO Good (75-100%) Minimum of two criteria No Fluid Accumulation N/A Reduced Mechanical Fitter Strength N/A (non-severe) Protein-Calorie Malnutrition N\A #1 Nutrition Diagnosis No nutrition diagnosis at this time Comments: No nutritional concerns at this time. Is patient on ventilator? No Is Patient Ambulatory and/or Out of Bed Yes REE-([facility]-ambulatory/OOB) [ 2104.102 [id number]] Calculation Used for Recommendations [facility] Additional Notes Protein 1-1.2g/kg ABW; 82-98g PRO q day Fluid: 30mL/kg ABW or per MD. Nutrition Intervention Change Diet Order: Continue current diet order Goal #1 Pt to consume >75% of estimated energy/protein needs through current diet order. Revisit per MD consult or patient Sign Off request: Additional Comments Monitor need for further nutritional assistance.
--- NOTE | 2021-12-03 10:58 | Progress Note ---
Assessment and Plan - Patient Problems (1) Vascular dementia with behavioral disturbance Current Visit: Yes Status: Acute Plan to address problem: Verbal prompting, verbal redirection, benzodiazepine therapy as clinically indicated. (2) Cerebral atherosclerosis Current Visit: Yes Status: Acute Plan to address problem: Antiplatelet therapy as clinically indicated, risk factor reduction. (3) Hypertension Current Visit: Yes Status: Acute Qualifiers: Hypertension type: primary hypertension Qualified Code(s): I10 - Essential (primary) hypertension Plan to address problem: Monitor blood pressure every shift, continue medical management. (4) Hyperlipidemia Current Visit: Yes Status: Acute Plan to address problem: Statin therapy, low-cholesterol diet (5) Generalized anxiety disorder Current Visit: Yes Status: Acute Plan to address problem: Benzodiazepine therapy as clinically indicated. (6) Major depression Current Visit: Yes Status: Acute Plan to address problem: Continue medical management, cognitive behavioral therapy. (7) Advance care planning Current Visit: Yes Status: Acute Plan to address problem: Disease education done, care plan discussed, diagnoses discussed, prognosis discussed, patient is full code. Patient acknowledges understanding and agreement with care plan, +30 minutes. (8) Preventative health care Current Visit: Yes Status: Acute Plan to address problem: Patient counseled regarding outpatient follow-up with primary care physician for all age and risk factor appropriate screening test. +30 minutes. History Interval history: 66 YO Male with Vascular Dementia with Behavioral Disturbance, Cerebral Atherosclerosis, HTN, HLD, DESTIN, MDD admitted to [facility] for psychiatric stabilization. Consult placed by Dr. Pal for medical management. Patient seen and evaluated in the recreation room. No reported nursing events. Patient appears to be at baseline level of cognition and function. Hospitalist Physical - Constitutional Vitals: Temp Pulse Resp BP Pulse Ox 98.3 F 64 16 131/81 97 12/02/21 18:14 12/02/21 18:14 12/02/21 18:14 12/02/21 18:14 12/02/21 18:14 General appearance: Present: no acute distress - EENT Eyes: Present: PERRL ENT: hearing intact, hearing decreased - Neck Neck: Present: supple - Respiratory Respiratory effort: normal Respiratory: bilateral: diminished - Cardiovascular Rhythm: regular Heart Sounds: Present: S1 & S2 - Extremities Extremities: no ischemia Peripheral Pulses: within normal limits - Abdominal General gastrointestinal: soft, non-tender, non-distended - Integumentary Integumentary: Present: clear, dry - Psychiatric Psychiatric: cooperative - Neurologic Neurologic: CNII-XII intact Results - Labs CBC & Chem 7: 11/19/21 23:14 11/19/21 23:14 Labs: Laboratory Last Values WBC 9.8 K/mm3 (4.5-11.0) 11/19/21 23:14 RBC 3.69 M/mm3 (3.65-5.03) 11/19/21 23:14 Hgb 12.4 gm/dl (11.8-15.2) 11/19/21 23:14 Hct 35.9 % (35.5-45.6) 11/19/21 23:14 MCV 97 fl (84-94) H 11/19/21 23:14 MCH 34 pg (28-32) H 11/19/21 23:14 MCHC 35 % (32-34) H 11/19/21 23:14 RDW 14.7 % (13.2-15.2) 11/19/21 23:14 Plt Count 190 K/mm3 (140-440) 11/19/21 23:14 Baso % (Auto) Incident Handler 11/19/21 23:14 Add Manual Diff Complete 11/19/21 23:14 Total Counted 100 11/19/21 23:14 Seg Neuts % (Manual) 50.0 % (40.0-70.0) 11/19/21 23:14 Band Neutrophils % 0 % 11/19/21 23:14 Lymphocytes % (Manual) 34.0 % (13.4-35.0) 11/19/21 23:14 Reactive Lymphs % (Man) 0 % 11/19/21 23:14 Monocytes % (Manual) 12.0 % (0.0-7.3) H 11/19/21 23:14 Eosinophils % (Manual) 4.0 % (0.0-4.3) 11/19/21 23:14 Basophils % (Manual) 0 % (0.0-1.8) 11/19/21 23:14 Metamyelocytes % 0 % 11/19/21 23:14 Myelocytes % 0 % 11/19/21 23:14 Promyelocytes % 0 % 11/19/21 23:14 Blast Cells % 0 % 11/19/21 23:14 Nucleated RBC % Not Reportable 11/19/21 23:14 Seg Neutrophils # Man 4.9 K/mm3 (1.8-7.7) 11/19/21 23:14 Band Neutrophils # 0.0 K/mm3 11/19/21 23:14 Lymphocytes # (Manual) 3.3 K/mm3 (1.2-5.4) 11/19/21 23:14 Abs React Lymphs (Man) 0.0 K/mm3 11/19/21 23:14 Monocytes # (Manual) 1.2 K/mm3 (0.0-0.8) H 11/19/21 23:14 Eosinophils # (Manual) 0.4 K/mm3 (0.0-0.4) 11/19/21 23:14 Basophils # (Manual) 0.0 K/mm3 (0.0-0.1) 11/19/21 23:14 Metamyelocytes # 0.0 K/mm3 11/19/21 23:14 Myelocytes # 0.0 K/mm3 11/19/21 23:14 Promyelocytes # 0.0 K/mm3 11/19/21 23:14 Blast Cells # 0.0 K/mm3 11/19/21 23:14 WBC Morphology Not Reportable 11/19/21 23:14 Hypersegmented Neuts Not Reportable 11/19/21 23:14 Hyposegmented Neuts Not Reportable 11/19/21 23:14 Hypogranular Neuts Not Reportable 11/19/21 23:14 Smudge Cells Not Reportable 11/19/21 23:14 Toxic Granulation Not Reportable 11/19/21 23:14 Toxic Vacuolation Not Reportable 11/19/21 23:14 Dohle Bodies Not Reportable 11/19/21 23:14 Pelger-Huet Anomaly Not Reportable 11/19/21 23:14 Nemesio Rods Not Reportable 11/19/21 23:14 Platelet Estimate Consistent w auto 11/19/21 23:14 Clumped Platelets Not Reportable 11/19/21 23:14 Plt Clumps, EDTA Not Reportable 11/19/21 23:14 Large Platelets Not Reportable 11/19/21 23:14 Giant Platelets Not Reportable 11/19/21 23:14 Platelet Satelliting Not Reportable 11/19/21 23:14 Plt Morphology Comment Not Reportable 11/19/21 23:14 RBC Morphology Not Reportable 11/19/21 23:14 Dimorphic RBCs Not Reportable 11/19/21 23:14 Polychromasia Not Reportable 11/19/21 23:14 Hypochromasia Not Reportable 11/19/21 23:14 Poikilocytosis Not Reportable 11/19/21 23:14 Anisocytosis 1+ 11/19/21 23:14 Microcytosis Not Reportable 11/19/21 23:14 Macrocytosis Not Reportable 11/19/21 23:14 Spherocytes Not Reportable 11/19/21 23:14 Pappenheimer Bodies Not Reportable 11/19/21 23:14 Sickle Cells Not Reportable 11/19/21 23:14 Target Cells Few 11/19/21 23:14 Tear Drop Cells Not Reportable 11/19/21 23:14 Ovalocytes Few 11/19/21 23:14 Helmet Cells Not Reportable 11/19/21 23:14 [place] Bodies Not Reportable 11/19/21 23:14 [place] Rings Not Reportable 11/19/21 23:14 [place] Cells Not Reportable 11/19/21 23:14 Bite Cells Not Reportable 11/19/21 23:14 Crenated Cell Not Reportable 11/19/21 23:14 Elliptocytes Not Reportable 11/19/21 23:14 Acanthocytes (Spur) Rare 11/19/21 23:14 Rouleaux Not Reportable 11/19/21 23:14 Hemoglobin C Crystals Not Reportable 11/19/21 23:14 Schistocytes Not Reportable 11/19/21 23:14 Malaria parasites Not Reportable 11/19/21 23:14 Haim Bodies Not Reportable 11/19/21 23:14 Hem Pathologist Commnt No 11/19/21 23:14 Sodium 137 mmol/L (137-145) 11/19/21 23:14 Potassium 4.2 mmol/L (3.6-5.0) 11/19/21 23:14 Chloride 102.3 mmol/L (98-107) 11/19/21 23:14 Carbon Dioxide 24 mmol/L (22-30) 11/19/21 23:14 Anion Gap 15 mmol/L 11/19/21 23:14 BUN 19 mg/dL (9-20) 11/19/21 23:14 Creatinine 0.9 mg/dL (0.8-1.3) 11/19/21 23:14 Estimated GFR > 60 ml/min 11/19/21 23:14 BUN/Creatinine Ratio 21 % 11/19/21 23:14 Glucose 103 mg/dL (75-100) H 11/19/21 23:14 Hemoglobin A1c 5.8 % (4-6) 11/19/21 23:14 Calcium 9.2 mg/dL (8.4-10.2) 11/19/21 23:14 Total Bilirubin 0.30 mg/dL (0.1-1.2) 11/19/21 23:14 AST 54 units/L (5-40) H 11/19/21 23:14 ALT 46 units/L (7-56) 11/19/21 23:14 Alkaline Phosphatase 70 units/L (35-129) 11/19/21 23:14 Total Protein 7.0 g/dL (6.3-8.2) 11/19/21 23:14 Albumin 3.6 g/dL (3.9-5) L 11/19/21 23:14 Albumin/Globulin Ratio 1.1 % 11/19/21 23:14 Triglycerides 42 mg/dL (2-149) 11/19/21 23:14 Cholesterol 92 mg/dL (50-199) 11/19/21 23:14 LDL Cholesterol Direct 42 mg/dL (50-130) L 11/19/21 23:14 HDL Cholesterol 48 mg/dL (40-59) 11/19/21 23:14 Cholesterol/HDL Ratio 1.91 % 11/19/21 23:14 TSH 3.150 mlU/mL (0.270-4.200) 11/19/21 23:14 Pfeiffer/IV: Voiding Method Incontinent Active Medications - Current Medications Current Medications: Generic Name Dose Route Start Last Admin Trade Name Freq PRN Reason Stop Dose Admin Al Hydrox/Mg Hydrox/Simethicone 30 ml 11/22/21 17:00 11/30/21 21:28 Alum-Mag Hydroxide-Simethicone 865-005-05ud/5ml Oral Liqd 30 Ml PO 30 ml Q4H PRN Administration Indigestion Alprazolam 0.5 mg 11/26/21 22:00 12/02/21 21:02 Alprazolam 0.5 Mg Tab PO 0.5 mg BID DENNY Administration Atorvastatin Calcium 80 mg 11/19/21 22:00 12/02/21 21:02 Atorvastatin 40 Mg Tab PO 80 mg QHS DENNY Administration Haloperidol Lactate 5 mg 11/25/21 11:00 Haloperidol Lactate 5 Mg/1 Ml Inj IM Q6H PRN Agitation Melatonin 5 mg 11/21/21 22:35 Melatonin 5 Mg Tab PO QHS PRN Sleep Nicotine 7 mg 11/26/21 21:00 12/02/21 09:30 Nicotine 7 Mg/24 Hr Patch TD Not Given QDAY DENNY Sertraline HCl 75 mg 11/26/21 10:00 12/02/21 09:07 Sertraline 50 Mg Tab PO 75 mg QDAY DENNY Administration Trazodone HCl 50 mg 11/21/21 22:36 12/02/21 21:02 Trazodone 50 Mg Tab PO 50 mg QHS PRN Administration Sleep Nutrition/Malnutrition Assess - Dietary Evaluation Nutrition/Malnutrition Findings: Nutrition Notes Start: 11/25/21 15:18 Freq: Status: Active Protocol: Document 11/25/21 15:18 CM (Rec: 11/25/21 15:22 CM [id number]) Co-Sign 11/25/21 15:18 WW Nutrition Notes Need for Assessment generated from: LOS Initial or Follow up Assessment Other Pertinent Diagnosis Vascular Dementia Current Diet Regular Diet Labs/Tests 11/25: Reviewed Pertinent Medications 11/25: Atorvasatatin Height 5 ft 11 in Weight 81.641 kg [place] Body Weight (kg) 78.18 BMI 25.1 Intake Prior to Admission Good Weight change and time frame Unsure wt loss [employer] per malnutrition screening tool assessment Weight Status Overweight Subjective/Other Information RD consult per LOS protocol. 100% meals consumed during LOS . Physical assessment WNL. No nutritional concerns at this time. Percent of energy/protein needs met: Regular diet provides 2289kcal / 89g PRO q day (108%/100%) Burn Absent Trauma Absent GI Symptoms None Food Allergy No Skin Integrity/Comment WNL Current % PO Good (75-100%) Minimum of two criteria No Fluid Accumulation N/A Reduced Carbider Strength N/A (non-severe) Protein-Calorie Malnutrition N\A #1 Nutrition Diagnosis No nutrition diagnosis at this time Comments: No nutritional concerns at this time. Is patient on ventilator? No Is Patient Ambulatory and/or Out of Bed Yes [facility] [ 2104.102 [id number]] Calculation Used for Recommendations [facility] Additional Notes Protein 1-1.2g/kg ABW; 82-98g PRO q day Fluid: 30mL/kg ABW or per MD. Nutrition Intervention Change Diet Order: Continue current diet order Goal #1 Pt to consume >75% of estimated energy/protein needs through current diet order. Revisit per MD consult or patient Sign Off request: Additional Comments Monitor need for further nutritional assistance.
[2021-12-03] MEDS: ALPRAZolam 0.5 MG TAB PO SCH ×2 (11:26→21:13)
[2021-12-03] MEDS: SERTRALINE 50 MG TAB PO SCH (11:26)
[2021-12-03] MEDS: NICOTINE 7 MG/24 HR PATCH TD SCH ×2 (11:26→16:16)
--- NOTE | 2021-12-04 09:35 | Progress Note ---
Subjective Date of service: 12/04/21 Principal diagnosis: vascular dementia w/ behavioral disturbance, mood disorder unspecified Subjective Comment: 12/04: Patient was seen today in activity room. Patient was cooperative throughout the interview. Patient reports feeling "not good," due to not being able to walk for the last 2 weeks. Nursing staff reports patient has walked with assistance of his wheel chair as walker in the last two weeks. Patient denies depressed mood. Patient reports good sleep and appetite. Patient denies SI/HI or hallucinations of any kind. He is awaiting placement. 12/03: The patient was seen today. He is sitting on side of the bed. He is calm, and cooperative. He denies SI/HI or hallucinations. He is awaiting placement. 12/02: The patient was seen today. He is lying in bed awake. He is calm, and cooperative. He denies SI/HI or hallucinations. He is awaiting placement. 12/01: The patient was seen today. He is lying in bed awake. He says he's ready to go and tired of being here. The patient denies SI/HI or hallucinations. He is clear from psych standpoint, but is awaiting placement. The is coordinating his discharge. 11/30: The patient was seen today. He is lying in bed asleep. He easily arouses. He says he's doing fine. He denies SI/HI or hallucinations. The patient is awaiting assisted placement. 11/29: The patient was seen today. He is upset and states he wants to go home. I inform the patient again that he is awaiting placement to ensure continuity of his mental wellness. The patient says "I got a four bedroom house, I don't need to go anywhere else." He denies SI/HI or hallucinations. 11/28: The patient was seen today. He is irritable. He says he is ready to go and feels like he is being held hostage. The patient is awaiting placement. He thinks he can go live with his sister. He denies SI/HI or hallucinations of any kind. 11/27: The patient was seen today. He jokingly says "I'm alive" when asking how he felt. He says he slept well. The patient denies SI/HI or hallucinations. He is clear from psych and awaiting placement to ensure continuity of his mental wellness. 11/26: Patient was seen today. Patient was oriented x1 and cooperative throughout interview. Patient reports feeling "still alive." Patient reports normal sleep and normal appetite. Patient reports "I'm ready to get out." Patient denies SI HI AVH. After interview patient was found beating on unit doors. Patient was de- escalated and redirected. 11/25: Patient was seen today. Patient was in bed but responsive to voice. Patient was oriented x1 and cooperative throughout the interview. Patient reports he's feeling "alright," and slept okay and has good appetite. Patient patient denies depressive sx, SI HI or hallucinations. Nursing notes report patient has had increasing irritability since decreasing xanax to .25 BID on . In the afternoon, patient was heard beating on the unit's doors. Patient was saying "I don't want to be here," and "just let me go." This provider talked with patient and discussed expectations and concerns with his behavior on the unit. 11/24: Patient was seen today. Patient was alert and oriented x3 and cooperative throughout the interview. When asked how patient feels, patient reports "I'm alive." Patient denies depressive symptoms, denies suicidal ideation, homicidal ideation, denies hallucinations. Patient reports good sleep and appetite. Patient reports "I just want to get out of here." 11/23: Patient was seen today. Patient was alert and oriented x3 and cooperative throughout the interview. Patient reports feeling "same as usual." Patient continues to deny depressed mood and suicidal ideation. When asked if patient endorses HI patient reports "not yet," and laughs. Patient reports "I need a joint and a shot of liquor." Patient reports okay sleep and good appetite. Patient denies hallucinations. Patient reports interest in checking on how his sister is doing. 11/22: Patient was seen today. Patient was alert and oriented x3 and cooperative throughout the interview. Patient reports feeling "same as usual." Patient denies depressed mood and suicidal ideation "that's the last thing I want to do." Patient denies irritability and anxiety. Patient reports he needs a beer. Patient reports okay sleep and good appetite. Patient denies HI and hallucinations. 11/21: Patient was seen today. Patient was alert and oriented x3 and cooperative throughout the interview. When asked how he feels, patient responds "I'm here." Patient denies depressive sx. Patient reports "I need to get out of here." When asked where he wants to go, patient reports "anywhere, I'm ready to go." Patient denies irritability or other depressive sx. Patient denies anxiety. Patient denies suicidal ideation, homicidal ideation, and hallucinations. Patient reports good sleep and good appetite. 11/20: Patient was seen today. Patient was alert and oriented x3 and cooperative throughout the interview. Patient reports he feels "alright." Patient denies irritability or other depressive sx. Patient denies anxiety. Patient denies suicidal ideation, homicidal ideation, and hallucinations. Patient reports he slept okay and has good appetite. Patient denies any complaints. 11/19: The patient was seen today. He was first seen in the ER where he presented for severe agitation. During my evaluation today, the patient is calm and cooperative, but easily irritable. I ask him if he felt calm, he said "yea for now, long as nobody messing with me." The patient denies hallucinations or SI/HI. MENTAL STATUS EXAMINATION General Appearance and Behavior: Age appropriate, wearing appropriate clothes, poor eye contact Cooperation: cooperative Psychomotor Behavior: Psychomotor normal Mood: "not good," Affect and affective range: calm Thought Process: Goal oriented Thought Content: Reality based Speech: Normal volume, Regular rate and rhythm Suicidal Ideation: Denies Homicidal Ideation: Denies Hallucination: Denies Delusions: None elicited Impulse Control: Normal Insight and Judgment: Limited Memory: Poor Attention: Attentive Orientation: Alert and oriented ASSESSMENT Vascular dementia with behavioral disturbance Mood disorder, unspecified Treatment Plan Patient admitted for inpatient psychiatric evaluation, medication adjustment and close monitoring The patient's behavior, mood, sleep and appetite will be closely monitored. Patient enrolled in individual and group therapeutic sessions and encouraged to attend. Patient provided with a safe and structured environment. Patient's physical health needs will be addressed by the Hospitalist. Hospitalist Consulted Labs including CBC, CMP, Lipid profile and Hemoglobin A1C levels ordered for baseline reference Social Assessment will be completed and the Market Sales Manager will work with patient and family to ensure a suitable and safe disposition Medication adjustment will be made as clinically indicated - Maintain Zoloft 75 mg qd - Maintain xanax .5 mg BID - Maintain nicotine patch 7 mg qd - Awaiting placement Usual Wellness Synagogue/Preservation - Trazodone 50 mg po QHS PRN for insomnia - Melatonin 5 mg po QHS to promote circadian rhythm The patient agreed on the treatment plan, understood the risk, benefit, alternative treatment, potential consequence of no treatment, and gave informed consent. Estimated days: 3 Post hospital care: primary care provider, psychiatric provider Case staffed with Dr. Duarte Medications and Allergies Allergies Allergy/AdvReac Type Severity Reaction Status Date / Time gadoteridol [From Prohance] Allergy Unknown Verified 11/16/21 18:43 Home Medications Medication Instructions Recorded Confirmed Last Taken Type ALPRAZolam [Xanax TAB] 0.5 mg PO BID 11/19/21 11/19/21 Unknown History Atorvastatin [Lipitor Tab] 80 mg PO QDAY 11/19/21 11/19/21 Unknown History Sertraline [Zoloft] 25 mg PO QDAY 11/19/21 11/19/21 Unknown History Active Meds: Active Medications Al Hydrox/Mg Hydrox/Simethicone (Alum-Mag Hydroxide-Simethicone [id number]/5ml Oral Liqd 30 Ml) 30 ml PO Q4H PRN PRN Reason: Indigestion Last Admin: 11/30/21 21:28 Dose: 30 ml Alprazolam (Alprazolam 0.5 Mg Tab) 0.5 mg PO BID [facility] Last Admin: 12/03/21 21:13 Dose: 0.5 mg Atorvastatin Calcium (Atorvastatin 40 Mg Tab) 80 mg PO QHS [facility] Last Admin: 12/03/21 21:13 Dose: 80 mg Haloperidol Lactate (Haloperidol Lactate 5 Mg/1 Ml Inj) 5 mg IM Q6H PRN PRN Reason: Agitation Melatonin (Melatonin 5 Mg Tab) 5 mg PO QHS PRN PRN Reason: Sleep Nicotine (Nicotine 7 Mg/24 Hr Patch) 7 mg TD QDAY [facility] Last Admin: 12/03/21 16:16 Dose: 7 mg Sertraline HCl (Sertraline 50 Mg Tab) 75 mg PO QDAY [facility] Last Admin: 12/03/21 11:26 Dose: 75 mg Trazodone HCl (Trazodone 50 Mg Tab) 50 mg PO QHS PRN PRN Reason: Sleep Last Admin: 12/02/21 21:02 Dose: 50 mg Results - Results Labs/Vitals: Laboratory Last Values WBC 9.8 K/mm3 (4.5-11.0) 11/19/21 23:14 RBC 3.69 M/mm3 (3.65-5.03) 11/19/21 23:14 Hgb 12.4 gm/dl (11.8-15.2) 11/19/21 23:14 Hct 35.9 % (35.5-45.6) 11/19/21 23:14 MCV 97 fl (84-94) H 11/19/21 23:14 MCH 34 pg (28-32) H 11/19/21 23:14 MCHC 35 % (32-34) H 11/19/21 23:14 RDW 14.7 % (13.2-15.2) 11/19/21 23:14 Plt Count 190 K/mm3 (140-440) 11/19/21 23:14 Baso % (Auto) [place] 11/19/21 23:14 Add Manual Diff Complete 11/19/21 23:14 Total Counted 100 11/19/21 23:14 Seg Neuts % (Manual) 50.0 % (40.0-70.0) 11/19/21 23:14 Band Neutrophils % 0 % 11/19/21 23:14 Lymphocytes % (Manual) 34.0 % (13.4-35.0) 11/19/21 23:14 Reactive Lymphs % (Man) 0 % 11/19/21 23:14 Monocytes % (Manual) 12.0 % (0.0-7.3) H 11/19/21 23:14 Eosinophils % (Manual) 4.0 % (0.0-4.3) 11/19/21 23:14 Basophils % (Manual) 0 % (0.0-1.8) 11/19/21 23:14 Metamyelocytes % 0 % 11/19/21 23:14 Myelocytes % 0 % 11/19/21 23:14 Promyelocytes % 0 % 11/19/21 23:14 Blast Cells % 0 % 11/19/21 23:14 Nucleated RBC % Not Reportable 11/19/21 23:14 Seg Neutrophils # Man 4.9 K/mm3 (1.8-7.7) 11/19/21 23:14 Band Neutrophils # 0.0 K/mm3 11/19/21 23:14 Lymphocytes # (Manual) 3.3 K/mm3 (1.2-5.4) 11/19/21 23:14 Abs React Lymphs (Man) 0.0 K/mm3 11/19/21 23:14 Monocytes # (Manual) 1.2 K/mm3 (0.0-0.8) H 11/19/21 23:14 Eosinophils # (Manual) 0.4 K/mm3 (0.0-0.4) 11/19/21 23:14 Basophils # (Manual) 0.0 K/mm3 (0.0-0.1) 11/19/21 23:14 Metamyelocytes # 0.0 K/mm3 11/19/21 23:14 Myelocytes # 0.0 K/mm3 11/19/21 23:14 Promyelocytes # 0.0 K/mm3 11/19/21 23:14 Blast Cells # 0.0 K/mm3 11/19/21 23:14 WBC Morphology Not Reportable 11/19/21 23:14 Hypersegmented Neuts Not Reportable 11/19/21 23:14 Hyposegmented Neuts Not Reportable 11/19/21 23:14 Hypogranular Neuts Not Reportable 11/19/21 23:14 Smudge Cells Not Reportable 11/19/21 23:14 Toxic Granulation Not Reportable 11/19/21 23:14 Toxic Vacuolation Not Reportable 11/19/21 23:14 Dohle Bodies Not Reportable 11/19/21 23:14 Pelger-Huet Anomaly Not Reportable 11/19/21 23:14 Nemesio Rods Not Reportable 11/19/21 23:14 Platelet Estimate Consistent w auto 11/19/21 23:14 Clumped Platelets Not Reportable 11/19/21 23:14 Plt Clumps, EDTA Not Reportable 11/19/21 23:14 Large Platelets Not Reportable 11/19/21 23:14 Giant Platelets Not Reportable 11/19/21 23:14 Platelet Satelliting Not Reportable 11/19/21 23:14 Plt Morphology Comment Not Reportable 11/19/21 23:14 RBC Morphology Not Reportable 11/19/21 23:14 Dimorphic RBCs Not Reportable 11/19/21 23:14 Polychromasia Not Reportable 11/19/21 23:14 Hypochromasia Not Reportable 11/19/21 23:14 Poikilocytosis Not Reportable 11/19/21 23:14 Anisocytosis 1+ 11/19/21 23:14 Microcytosis Not Reportable 11/19/21 23:14 Macrocytosis Not Reportable 11/19/21 23:14 Spherocytes Not Reportable 11/19/21 23:14 Pappenheimer Bodies Not Reportable 11/19/21 23:14 Sickle Cells Not Reportable 11/19/21 23:14 Target Cells Few 11/19/21 23:14 Tear Drop Cells Not Reportable 11/19/21 23:14 Ovalocytes Few 11/19/21 23:14 Helmet Cells Not Reportable 11/19/21 23:14 Burgos-Pe Ell Bodies Not Reportable 11/19/21 23:14 Devon Rings Not Reportable 11/19/21 23:14 Ryan Cells Not Reportable 11/19/21 23:14 Bite Cells Not Reportable 11/19/21 23:14 Crenated Cell Not Reportable 11/19/21 23:14 Elliptocytes Not Reportable 11/19/21 23:14 Acanthocytes (Spur) Rare 11/19/21 23:14 Rouleaux Not Reportable 11/19/21 23:14 Hemoglobin C Crystals Not Reportable 11/19/21 23:14 Schistocytes Not Reportable 11/19/21 23:14 Malaria parasites Not Reportable 11/19/21 23:14 Haim Bodies Not Reportable 11/19/21 23:14 Hem Pathologist Commnt No 11/19/21 23:14 Sodium 137 mmol/L (137-145) 11/19/21 23:14 Potassium 4.2 mmol/L (3.6-5.0) 11/19/21 23:14 Chloride 102.3 mmol/L (98-107) 11/19/21 23:14 Carbon Dioxide 24 mmol/L (22-30) 11/19/21 23:14 Anion Gap 15 mmol/L 11/19/21 23:14 BUN 19 mg/dL (9-20) 11/19/21 23:14 Creatinine 0.9 mg/dL (0.8-1.3) 11/19/21 23:14 Estimated GFR > 60 ml/min 11/19/21 23:14 BUN/Creatinine Ratio 21 % 11/19/21 23:14 Glucose 103 mg/dL (75-100) H 11/19/21 23:14 Hemoglobin A1c 5.8 % (4-6) 11/19/21 23:14 Calcium 9.2 mg/dL (8.4-10.2) 11/19/21 23:14 Total Bilirubin 0.30 mg/dL (0.1-1.2) 11/19/21 23:14 AST 54 units/L (5-40) H 11/19/21 23:14 ALT 46 units/L (7-56) 11/19/21 23:14 Alkaline Phosphatase 70 units/L (35-129) 11/19/21 23:14 Total Protein 7.0 g/dL (6.3-8.2) 11/19/21 23:14 Albumin 3.6 g/dL (3.9-5) L 11/19/21 23:14 Albumin/Globulin Ratio 1.1 % 11/19/21 23:14 Triglycerides 42 mg/dL (2-149) 11/19/21 23:14 Cholesterol 92 mg/dL (50-199) 11/19/21 23:14 LDL Cholesterol Direct 42 mg/dL (50-130) L 11/19/21 23:14 HDL Cholesterol 48 mg/dL (40-59) 11/19/21 23:14 Cholesterol/HDL Ratio 1.91 % 11/19/21 23:14 TSH 3.150 mlU/mL (0.270-4.200) 11/19/21 23:14 Last Vital Signs Temp 98.5 F 12/04/21 06:19 Pulse 79 12/04/21 06:19 Resp 17 12/04/21 06:19 BP 119/78 12/04/21 06:19 Pulse Ox 96 12/04/21 06:19
[2021-12-04] MEDS: SERTRALINE 50 MG TAB PO SCH (09:57)
[2021-12-04] MEDS: ALPRAZolam 0.5 MG TAB PO SCH ×2 (09:57→21:02)
[2021-12-04] MEDS: NICOTINE 7 MG/24 HR PATCH TD SCH (09:58)
[2021-12-04 19:50] VITALS: BP 117/79
[2021-12-04] MEDS: traZODone 50 MG TAB PO PRN (21:02)
== END 2021-12-04 23:12 | disposition home or self-care (01) | DRG 885 ==
LOC: UNDOADMIN 18:39 → 3A 18:39 → 5A 23:22
PROVIDERS: ADMIT Psychiatry & Neurology Psychiatry; ATTEND Psychiatry & Neurology Psychiatry
DX: F39 Unspecified mood [affective] disorder (principal); F01.51 Vascular dementia, unspecified severity, with behavioral disturbance; I67.2 Cerebral atherosclerosis; I10 Essential (primary) hypertension; E78.5 Hyperlipidemia, unspecified; F41.1 Generalized anxiety disorder; F32.A Depression, unspecified; Z88.8 Allergy status to other drugs, medicaments and biological substances; Z79.899 Other long term (current) drug therapy
CPT/HCPCS: 36415; 80053; 80061; 83036; 84443; 85007; 85025; G0378